=== PATIENT | female | born 1980 | race American Indian/Alaskan Native ===

== ENCOUNTER 2016-05-07 09:02 | Emergency (ER) | payer MEDICAID ==
--- NOTE | 2016-05-07 09:57 | Emergency Department Report ---
Chief Complaint: Headache Stated Complaint: LOWER PAIN IN HEAD Time Seen by Provider: 05/07/16 09:52 - HPI History of Present Illness: Pt. is a 35 y.o female who presents to ED c/o constant/intermittent, throbbing /sharp, non radiation 6/10 intensity type headache x today. Pt. states pain located to frontal and occipital Pt. admits history of stroke 3 years ago that left her in a wheelchair. She states she has not taken any medication for the headache today. Pt. denies fever, chills, nausea, vomiting, trauma, vision impairment, dizziness , chest pain, shortness of breath - ROS Review of Systems: As noted in HPI - Exam Vital Signs: Vital Signs 05/07/16 09:44 Temperature 98.5 F Pulse Rate 80 Respiratory 17 Rate Blood Pressure 120/80 O2 Sat by Pulse 98 Oximetry Physical Exam: GENERAL: Alert and oriented x3, no apparent distress, in wheel chair, atraumatic. No facial droop. HEAD: Head is normocephalic and a-traumatic. Tender to palpation frontal and solution EYES: Extra ocular muscles are intact. Pupils are equal, round, and reactive to light and accommodation. LUNGS: Symetrical with respiration, No wheezing, no rales or crackles, CTAB. HEART: S1, S2 present, regular rate and rhythm without murmur, no rubs, no gallops. ABDOMEN: No organomegaly was noted,Positive bowel sounds, soft, and non- distended. . Nontender to palpation on all Quadrants, NO CVA tenderness. EXTREMITIES/MUSCULOSKELETAL: No cyanosis, clubbing, rash, lesions or edema. Full ROM bilaterally. UE/LE Pulses 2+ bilaterally. LE and UE 5+ strength bilaterally NEUROLOGIC: No focal Deficit, Cranial nerves II through XII are grossly intact. No loss of sensation. Firm grasp SKIN: Warm and dry, No lesions, No ulceration or induration present. MSE screening note: Focused history and physical exam performed. Due to findings the following was ordered: ED Medical Decision Making - Medical Decision Making Labs ordered. Patient to be reassessed every 30-60 minutes. Patient was seen over on the main side by ED physician. ED Disposition for MSE Condition: Stable
[2016-05-07 10:25] LABS: Basophils % (Auto) 0.5 % (0.0-1.8); Eosinophils % (Auto) 1.1 % (0.0-4.3); Hemoglobin 13.2 gm/dl (10.1-14.3); Mean Corpuscular HGB Conc 32 % (30-34); Mean Corpuscular Hemoglobin 27 pg (28-32); Mean Corpuscular Volume 85 fl (79-97); Platelet Count 164 K/mm3 (140-440); Red Blood Count 4.92 M/mm3 (3.65-5.03); Red Cell Distribution Width 14.3 % (13.2-15.2); White Blood Count 9.7 K/mm3 (4.5-11.0)
[2016-05-07 10:41] LABS: Alanine Aminotransferase 25 units/L (7-56); Albumin 3.7 g/dL (3.9-5); Albumin/Globulin Ratio 0.9 %; Alkaline Phosphatase 82 units/L (35-129); Anion Gap 16 mmol/L; Bilirubin,Total 0.3 mg/dL (0.1-1.2); Blood Urea Nitrogen 18 mg/dL (7-17); Calcium 8.8 mg/dL (8.4-10.2); Carbon Dioxide 28 mmol/L (22-30); Chloride 103.8 mmol/L (98-107); Glucose 151 mg/dL (65-100); Sodium 144 mmol/L (137-145); Total Protein 7.6 g/dL (6.3-8.2)
--- NOTE | 2016-05-07 11:12 | Cat Scan Report ---
CT HEAD WITHOUT CONTRAST: HISTORY: Headache. Bilateral ventricular catheters are unchanged in position. Ventricular size is unchanged and within normal limits. No hydrocephalus. Calcifications throughout the basal ganglia, cerebellar hemispheres and scattered calcifications in the subcortical white matter are unchanged since 07/31/15. There is no evidence for hemorrhage, mass or extra axial fluid collection. No large chronic infarct. Mild mucosal thickening is noted in the inferior maxillary sinuses. The remaining sinuses and mastoid air cells are clear. IMPRESSION: No acute intracranial process. Chronic findings as outlined above which are unchanged since 07/31/15.
[2016-05-07] MEDS ORDERED: FIORICET PO ONE (13:45)
--- NOTE | 2016-05-07 14:04 | Emergency Department Report ---
HPI - General Chief Complaint: Headache Time Seen by Provider: 05/07/16 13:39 - HPI HPI: Room 1 The patient is a 35-year-old female presenting with chief complaint of headache. Patient states her symptoms began this morning with a right occipital headache. Patient denies any preceding trauma or fever. Patient denies nausea or vomiting. 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 The patient currently gives her pain a score of 5/10 Location: Right occipital region Duration: Constant since this morning Quality: Headache Severity:5/10 Modifying factors: Unknown Context: [see above] Mode of transportation: [not driving] ED Past Medical Hx - Past Medical History Hx Hypertension: Yes (New Dx; 01/09/15) Hx CVA: Yes (CVA 2012) Hx Diabetes: Yes Hx Deep Vein Thrombosis: Yes (RIGHT LEG) Additional medical history: germinoma tumor, peripheral shunt, SCOLIOSIS, diabetes insipidus - Surgical History Past Surgical History?: No Additional Surgical History: brain surgery to remove germinoma. TONSILLECTOMY - Family History Family history: no significant - Social History Smoking Status: Never Smoker Substance Use Type: None - Medications Home Medications: Home Medications Medication Instructions Recorded Confirmed Last Taken Type Aspirin [Aspirin TAB] 325 mg PO DAILY 09/20/13 02/20/15 01/08/15 History Desmopressin 0.01% [Ddavp] 2 spray INNOSTRIL DAILY 09/20/13 02/20/15 01/08/15 History Gabapentin 100 mg PO TID 09/20/13 02/20/15 01/08/15 History Glimepiride 1 mg PO DAILY 09/20/13 02/20/15 01/08/15 History Hydrocortisone 20 mg PO DAILY 09/20/13 02/20/15 01/08/15 History Levothyroxine [Synthroid] 112 mcg PO DAILY 09/20/13 02/20/15 01/08/15 History Simvastatin [Zocor TAB] 40 mg PO QHS 09/20/13 02/20/15 01/07/15 History Warfarin [Coumadin] 10 mg PO DAILY@1700 14 Days 12/04/14 02/20/15 01/08/15 Rx Amlodipine Besylate [Norvasc] 2.5 mg PO DAILY 30 Days 01/09/15 02/20/15 Unknown Rx HYDROcodone/APAP 10-325 [[place] 1 each PO Q8HR PRN #20 tablet 01/09/15 02/20/15 Unknown Rx 10/325] PARoxetine [Paxil] 10 mg PO TID #90 tablet 04/16/15 Unknown Rx traMADol [Ultram] 50 mg PO Q4HR PRN #20 tablet 04/16/15 Unknown Rx HYDROcodone/APAP 5-325 [[place] 1 each PO Q6HR PRN #15 tablet 07/31/15 Unknown Rx 5-325 mg TAB] Ibuprofen [Motrin 800 MG tab] 800 mg PO Q8HR PRN #30 tablet 11/14/15 Unknown Rx Sulfamethoxazole/Trimethoprim 1 each PO BID #14 tablet 12/27/15 Unknown Rx [Bactrim DS TAB] Butalb/Acetamin/Caff 50-325-40 1 tab PO Q8HR PRN #20 tablet 05/07/16 Unknown Rx [Fioricet] ED Review of Systems ROS: Stated complaint: LOWER PAIN IN HEAD Other details as noted in HPI Comment: All other systems reviewed and negative Constitutional: denies: chills, fever Eyes: denies: eye pain, eye discharge, vision change ENT: denies: ear pain, throat pain Respiratory: denies: cough, shortness of breath, wheezing Cardiovascular: denies: chest pain, palpitations Endocrine: no symptoms reported Gastrointestinal: denies: abdominal pain, nausea, diarrhea Genitourinary: denies: urgency, dysuria, discharge Musculoskeletal: denies: back pain, joint swelling, arthralgia Skin: denies: rash, lesions Neurological: headache Psychiatric: denies: anxiety, depression Hematological/Lymphatic: denies: easy bleeding, easy bruising Physical Exam - Physical Exam Vital Signs: Vital Signs 05/07/16 09:44 Temperature 98.5 F Pulse Rate 80 Respiratory 17 Rate Blood Pressure 120/80 O2 Sat by Pulse 98 Oximetry Physical Exam: GENERAL: The patient is well-developed well-nourished female lying on stretcher not appearing to be in acute distress. [] HEENT: Normocephalic. Atraumatic. Extraocular motions are intact. Patient has moist mucous membranes. NECK: Supple. No meningitic signs are noted. Trachea midline CHEST/LUNGS: Clear to auscultation. There is no respiratory distress noted. HEART/CARDIOVASCULAR: Regular. There is no tachycardia. There is no gallop rub or murmur. ABDOMEN: Abdomen is soft, nontender. Patient has normal bowel sounds. There is no abdominal distention. SKIN: There is no rash. There is no edema. There is no diaphoresis. NEURO: The patient is awake, alert, and oriented. The patient is cooperative. Slight right facial weakness otherwise cranial nerves II through XII grossly intact. Right upper extremity and lower extremity weakness from previous CVA. The patient has normal speech MUSCULOSKELETAL: There is no evidence of acute injury. ED Course Vital Signs 05/07/16 09:44 Temperature 98.5 F Pulse Rate 80 Respiratory 17 Rate Blood Pressure 120/80 O2 Sat by Pulse 98 Oximetry ED Medical Decision Making - Lab Data Result diagrams: 05/07/16 10:06 05/07/16 10:06 Laboratory Tests 05/07/16 05/07/16 05/07/16 10:06 10:06 10:06 WBC 9.7 RBC 4.92 Hgb 13.2 Hct 42.0 MCV 85 MCH 27 L MCHC 32 RDW 14.3 Plt Count 164 Lymph % (Auto) 24.4 [place] % (Auto) 6.9 Eos % (Auto) 1.1 Baso % (Auto) 0.5 Lymph # 2.4 [place] # 0.7 Eos # 0.1 Baso # 0.0 Seg Neutrophils % 67.1 Seg Neutrophils # 6.5 PT INR APTT Sodium 144 Potassium 4.0 Chloride 103.8 Carbon Dioxide 28 Anion Gap 16 BUN 18 H Creatinine 1.2 Estimated GFR > 60 BUN/Creatinine Ratio 15.00 Glucose 151 H Calcium 8.8 Total Bilirubin 0.3 AST 14 ALT 25 Alkaline Phosphatase 82 Total Protein 7.6 Albumin 3.7 L Albumin/Globulin Ratio 0.9 HCG, Qual Negative Urine Color Urine Turbidity Urine pH Ur Specific [place] Urine Protein Urine Glucose (UA) Urine Ketones Urine Blood Urine Nitrite Urine Bilirubin Urine Urobilinogen Ur Leukocyte Esterase Urine WBC (Auto) Urine RBC (Auto) U Epithel Cells (Auto) 05/07/16 05/07/16 13:52 14:44 WBC RBC Hgb Hct MCV MCH MCHC RDW Plt Count Lymph % (Auto) [place] % (Auto) Eos % (Auto) Baso % (Auto) Lymph # [place] # Eos # Baso # Seg Neutrophils % Seg Neutrophils # PT 22.5 H INR 1.98 H APTT 36.5 Sodium Potassium Chloride Carbon Dioxide Anion Gap BUN Creatinine Estimated GFR BUN/Creatinine Ratio Glucose Calcium Total Bilirubin AST ALT Alkaline Phosphatase Total Protein Albumin Albumin/Globulin Ratio HCG, Qual Urine Color Straw Urine Turbidity Clear Urine pH 6.0 Ur Specific [place] 1.003 Urine Protein <15 mg/dl Urine Glucose (UA) Neg Urine Ketones Neg Urine Blood Neg Urine Nitrite Neg Urine Bilirubin Neg Urine Urobilinogen < 2.0 Ur Leukocyte Esterase Neg Urine WBC (Auto) < 1.0 Urine RBC (Auto) 1.0 U Epithel Cells (Auto) 1.0 - Radiology Data Radiology results: report reviewed (CT head), image reviewed (CT head) CT head (read by radiologist)-no acute intracranial process. Bilateral ventricular catheters are unchanged in position. Ventricular size is unchanged and within normal limits. No hydrocephalus. Chronic findings as outlined above which are unchanged since 07/31/2015. - Differential Diagnosis headache, migraine, [employer] shunt malfunction Critical care attestation.: If time is entered above; I have spent that time in minutes in the direct care of this critically ill patient, excluding procedure time. ED Disposition Clinical Impression: Headache Disposition: DISCHARGED TO HOME OR SELFCARE Is pt being admited?: No Does the pt Need Aspirin: No Condition: Stable Instructions: Acute Headache (ED) Additional Instructions: Return to the emergency department immediately should you develop worsening symptoms, fever, inability to tolerate food or liquid or any other concerns. Prescriptions: Butalb/Acetamin/Caff 50-325-40 [Fioricet] 1 tab PO Q8HR PRN #20 tablet PRN Reason: Headache Referrals: PRIMARY CARE, [Primary Care Provider] - 3-5 Days your neurologistZac [Other] - 3-5 Days Time of Disposition: 15:03
[2016-05-07 14:17] VITALS: BP 134/78
[2016-05-07 14:18] LABS: INR 1.98 (0.87-1.13)
[2016-05-07 14:19] LABS: Partial Thromboplastin Time 36.5 Sec. (24.2-36.6)
[2016-05-07 14:58] LABS: Bilirubin,Urine NEG (Negative); Blood,Urine NEG (Negative); Ketones,Urine NEG (Negative); Leukocyte Esterase,Urine NEG (Negative); Nitrite,Urine NEG (Negative); Protein,Urine <15 mg/dL mg/dL (Negative); Urobilinogen,Urine < 2.0 mg/dL (<2.0); WBC,Urine < 1.0 /HPF (0.0-6.0)
== END 2016-05-07 15:00 | disposition home or self-care (01) ==
LOC: ED 09:02
DX: R51 Headache (principal); I10 Essential (primary) hypertension; E11.9 Type 2 diabetes mellitus without complications; Z86.73 Personal history of transient ischemic attack (TIA), and cerebral infarction without residual deficits; Z86.718 Personal history of other venous thrombosis and embolism; Z90.89 Acquired absence of other organs; Z79.82 Long term (current) use of aspirin
CPT/HCPCS: 36415; 70450; 80053; 81001; 84703; 85025; 85610; 85730

== ENCOUNTER 2017-11-04 20:39 | Emergency (ER) | payer MEDICAID ==
[2017-11-05 02:26] VITALS: BP 140/89
== END 2017-11-05 07:00 | disposition left against medical advice (07) ==
LOC: ED 20:39
DX: R51 Headache (principal); Z53.21 Procedure and treatment not carried out due to patient leaving prior to being seen by health care provider

== ENCOUNTER 2018-07-01 19:30 | Inpatient (IN) | payer MEDICARE ==
[2018-07-01] MEDS ORDERED: NACL 0.9% 1000 ML IV ONE (20:12)
[2018-07-01] MEDS ORDERED: TYLENOL PO PRN (20:12)
[2018-07-01] MEDS ORDERED: TORADOL IV ONE (20:15)
[2018-07-01] MEDS ORDERED: ZOFRAN IV ONE (20:15)
--- NOTE | 2018-07-01 20:34 | Emergency Department Report ---
<CHARAN PADRON - Last Filed: 07/02/18 01:22> ED General Adult HPI - General Chief complaint: Weakness Stated complaint: LEG PAIN/WEAKNESS Time Seen by Provider: 07/01/18 20:06 - Related Data Home Medications Medication Instructions Recorded Confirmed Last Taken Aspirin [Aspirin TAB] 325 mg PO DAILY 09/20/13 02/20/15 01/08/15 DESMOPRESSIN 0.01%(nf) [Ddavp(Nf)] 2 spray INNOSTRIL DAILY 09/20/13 02/20/15 01/08/15 Gabapentin 100 mg PO TID 09/20/13 02/20/15 01/08/15 Glimepiride 1 mg PO DAILY 09/20/13 02/20/15 01/08/15 Hydrocortisone 20 mg PO DAILY 09/20/13 02/20/15 01/08/15 Levothyroxine [Synthroid] 112 mcg PO DAILY 09/20/13 02/20/15 01/08/15 Simvastatin (Nf) [Zocor TAB] 40 mg PO QHS 09/20/13 02/20/15 01/07/15 Previous Rx's Medication Instructions Recorded Last Taken Type Warfarin [Coumadin] 10 mg PO DAILY@1700 14 Days tablet 12/04/14 01/08/15 Rx Amlodipine Besylate [Norvasc] 2.5 mg PO DAILY 30 Days tab 01/09/15 Unknown Rx HYDROcodone/APAP 10-325 [[place] 1 each PO Q8HR PRN #20 tablet 01/09/15 Unknown Rx 10/325] PARoxetine [Paxil] 10 mg PO TID #90 tablet 04/16/15 Unknown Rx traMADol [Ultram] 50 mg PO Q4HR PRN #20 tablet 04/16/15 Unknown Rx HYDROcodone/APAP 5-325 [[place] 1 each PO Q6HR PRN #15 tablet 07/31/15 Unknown Rx 5-325 mg TAB] Ibuprofen [Motrin 800 MG tab] 800 mg PO Q8HR PRN #30 tablet 11/14/15 Unknown Rx Sulfamethoxazole/Trimethoprim 1 each PO BID #14 tablet 12/27/15 Unknown Rx [Bactrim DS TAB] Butalb/Acetamin/Caff 50-325-40 1 tab PO Q8HR PRN #20 tablet 05/07/16 Unknown Rx [Fioricet] Allergies Allergy/AdvReac Type Severity Reaction Status Date / Time No Known Allergies Allergy Verified 05/07/16 09:44 ED Past Medical Hx - Medications Home Medications: Home Medications Medication Instructions Recorded Confirmed Last Taken Type Aspirin [Aspirin TAB] 325 mg PO DAILY 09/20/13 02/20/15 01/08/15 History DESMOPRESSIN 0.01%(nf) [Ddavp(Nf)] 2 spray INNOSTRIL DAILY 09/20/13 02/20/15 01/08/15 History Gabapentin 100 mg PO TID 09/20/13 02/20/15 01/08/15 History Glimepiride 1 mg PO DAILY 09/20/13 02/20/15 01/08/15 History Hydrocortisone 20 mg PO DAILY 09/20/13 02/20/15 01/08/15 History Levothyroxine [Synthroid] 112 mcg PO DAILY 09/20/13 02/20/15 01/08/15 History Simvastatin (Nf) [Zocor TAB] 40 mg PO QHS 09/20/13 02/20/15 01/07/15 History Warfarin [Coumadin] 10 mg PO DAILY@1700 14 Days tablet 12/04/14 02/20/15 01/08/15 Rx Amlodipine Besylate [Norvasc] 2.5 mg PO DAILY 30 Days tab 01/09/15 02/20/15 Unknown Rx HYDROcodone/APAP 10-325 [[place] 1 each PO Q8HR PRN #20 tablet 01/09/15 02/20/15 Unknown Rx 10/325] PARoxetine [Paxil] 10 mg PO TID #90 tablet 04/16/15 Unknown Rx traMADol [Ultram] 50 mg PO Q4HR PRN #20 tablet 04/16/15 Unknown Rx HYDROcodone/APAP 5-325 [[place] 1 each PO Q6HR PRN #15 tablet 07/31/15 Unknown Rx 5-325 mg TAB] Ibuprofen [Motrin 800 MG tab] 800 mg PO Q8HR PRN #30 tablet 11/14/15 Unknown Rx Sulfamethoxazole/Trimethoprim 1 each PO BID #14 tablet 12/27/15 Unknown Rx [Bactrim DS TAB] Butalb/Acetamin/Caff 50-325-40 1 tab PO Q8HR PRN #20 tablet 05/07/16 Unknown Rx [Fioricet] ED Medical Decision Making - Lab Data Result diagrams: 07/01/18 20:16 07/01/18 20:16 ED Disposition Clinical Impression: Hypoglycemia Hypotension Qualifiers: Hypotension type: hypotension due to hypovolemia Qualified Code(s): I95.89 - Other hypotension; E86.1 - Hypovolemia Pneumonia Qualifiers: Pneumonia type: due to unspecified organism Laterality: right Lung location: lower lobe of lung Qualified Code(s): J18.1 - Lobar pneumonia, unspecified organism UTI (urinary tract infection) Qualifiers: Urinary tract infection type: acute cystitis Hematuria presence: without hematuria Qualified Code(s): N30.00 - Acute cystitis without hematuria Sepsis Qualifiers: Sepsis type: sepsis due to unspecified organism Qualified Code(s): A41.9 - Sepsis, unspecified organism Disposition: OP ADMIT IP TO THIS HOSP Condition: Stable Instructions: Bacterial Pneumonia (ED) <HUGO PARMAR - Last Filed: 07/02/18 01:44> ED General Adult HPI - General Source: EMS Mode of arrival: Stretcher Limitations: Physical Limitation - History of Present Illness Initial comments: Patient is a 37-year-old Female with past medical history of hypertension diabetes and history of a right sided CVA with residual deficit that occurred approximately 5 years ago who is presenting with generalized weakness. Patient states that over the past day she's felt very weak with body aches. Patient's falling 3 times with no obvious injury. Patient states she feels dizzy when she tries to stand. Patient states she has achiness and bilateral legs and lower back. She states she has sore throat that is worse with swallowing has some tenderness severity. Patient's has associated cough and congestion with nausea vomiting but denies diarrhea. pt had 3 falls today but states that her balance is not great after the strokes. denies injury Associated Symptoms: cough, diaphoresis, fever/chills, headaches, loss of appetite, malaise, nausea/vomiting, shortness of breath, weakness. 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 TONSILLECTOMY - Social History Smoking Status: Never Smoker ED Physical Exam - General Limitations: Physical Limitation General appearance: alert, in no apparent distress - Head Head exam: Present: atraumatic, normocephalic - Eye Eye exam: Present: normal appearance, PERRL, EOMI - ENT ENT exam: Present: mucous membranes moist, other (pharyngeal erythema) - Neck Neck exam: Present: normal inspection. Absent: tenderness, meningismus - Respiratory Respiratory exam: Present: rhonchi. Absent: normal lung sounds bilaterally, respiratory distress, wheezes, rales, chest wall tenderness - Cardiovascular Cardiovascular Exam: Present: normal rhythm, tachycardia. Absent: systolic murmur, diastolic murmur, rubs, gallop - GI/Abdominal GI/Abdominal exam: Present: soft, normal bowel sounds. Absent: distended, tenderness, guarding, rebound, rigid - Extremities Exam Extremities exam: Present: normal inspection - Back Exam Back exam: Present: normal inspection - Neurological Exam Neurological exam: Present: alert, oriented X3, other (patient with some co ntractures to the right upper extremity secondary to a previous CVA) - Psychiatric Psychiatric exam: Present: normal affect, normal mood - Skin Skin exam: Present: warm, dry, intact, normal color. Absent: rash ED Course Vital Signs 07/01/18 07/01/18 07/01/18 19:56 20:13 20:52 Temperature 98.4 F Pulse Rate 127 H 134 H Respiratory 20 15 Rate Blood Pressure 133/81 O2 Sat by Pulse 99 93 Oximetry 07/01/18 07/01/18 07/01/18 21:08 21:13 21:16 Temperature 102.5 F H Pulse Rate 122 H 115 H Respiratory 13 Rate Blood Pressure 133/76 110/65 O2 Sat by Pulse 92 99 Oximetry 07/01/18 07/01/18 07/01/18 21:30 21:46 22:00 Temperature Pulse Rate 115 H 114 H 116 H Respiratory 18 16 Rate Blood Pressure 121/66 129/69 113/64 O2 Sat by Pulse 100 100 Oximetry 07/01/18 07/01/18 07/01/18 22:16 22:30 22:45 Temperature 99.8 F H Pulse Rate 114 H 109 H Respiratory 19 14 Rate Blood Pressure 121/66 123/60 O2 Sat by Pulse 98 97 Oximetry 07/01/18 07/01/18 07/01/18 22:46 23:00 23:16 Temperature Pulse Rate 106 H 112 H 96 H Respiratory 16 13 25 H Rate Blood Pressure 115/55 106/59 106/59 O2 Sat by Pulse 97 92 96 Oximetry 07/01/18 07/01/18 07/02/18 23:30 23:46 00:00 Temperature Pulse Rate 96 H 98 H 100 H Respiratory 19 17 Rate Blood Pressure 90/47 89/48 O2 Sat by Pulse 97 98 94 Oximetry 07/02/18 07/02/18 00:16 00:30 Temperature Pulse Rate 103 H 104 H Respiratory 16 Rate Blood Pressure 91/47 O2 Sat by Pulse Oximetry - Reevaluation(s) Reevaluation #1: 07/02/18 01:39 Patient received a bolus under the sepsis protocol. She continued to have hypotension despite the fluids. Patient was taken from room 9 to room 2 to have a central line placed. Also patient seems to be requiring oxygen as well. Patient is not on home O2. Patient is mouth breathing secondary to congestion. - Central Line Placement Left IJ Consent Obtained: verbal consent Time Out Performed: Yes Patient Placed on Monitor/Pulse Ox: Yes Prep: mask, gown, gloves Central Line Prep: Chlorhexidine scrub Local Anesthesia Used: Lidocaine 1% Amount of Anesthesia Used (mls): 8 Ultrasound Used for Placement: Yes Central Line Lumen Inserted: triple Central Line Position: good blood return, all ports aspirated, flus, sutured in place with 2-0 Dressing Applied: Tegaderm Patient Tolerated Procedure: well ED Medical Decision Making - Lab Data Result diagrams: 07/01/18 20:16 07/01/18 20:16 Lab Results 07/01/18 07/01/18 07/01/18 Range/Units 20:16 20:16 20:26 WBC 14.8 H (4.5-11.0) K/mm3 RBC 5.80 H (3.65-5.03) M/mm3 Hgb 15.2 H (10.1-14.3) gm/dl Hct 47.2 H (30.3-42.9) % MCV 82 (79-97) fl MCH 26 L (28-32) pg MCHC 32 (30-34) % RDW 15.3 H (13.2-15.2) % Plt Count 169 (140-440) K/mm3 Lymph % (Auto) 13.5 (13.4-35.0) % [place] % (Auto) 5.6 (0.0-7.3) % Eos % (Auto) 0.0 (0.0-4.3) % Baso % (Auto) 0.6 (0.0-1.8) % Lymph # 2.0 (1.2-5.4) K/mm3 [place] # 0.8 (0.0-0.8) K/mm3 Eos # 0.0 (0.0-0.4) K/mm3 Baso # 0.1 (0.0-0.1) K/mm3 Seg Neutrophils % 80.3 H (40.0-70.0) % Seg Neutrophils # 11.9 H (1.8-7.7) K/mm3 APTT 51.3 H (24.2-36.6) Sec. Sodium 142 (137-145) mmol/L Potassium 4.2 (3.6-5.0) mmol/L Chloride 102.4 (98-107) mmol/L Carbon Dioxide 24 (22-30) mmol/L Anion Gap 20 mmol/L BUN 22 H (7-17) mg/dL Creatinine 1.6 H (0.7-1.2) mg/dL Estimated GFR 44 ml/min BUN/Creatinine Ratio 14 % Glucose 63 L (65-100) mg/dL POC Glucose (70-105) Lactic Acid (0.7-2.0) mmol/L Calcium 9.8 (8.4-10.2) mg/dL Total Bilirubin 0.40 (0.1-1.2) mg/dL AST 67 H (5-40) units/L ALT 53 (7-56) units/L Alkaline Phosphatase 124 (35-129) units/L Total Protein 9.1 H (6.3-8.2) g/dL Albumin 3.9 (3.9-5) g/dL Albumin/Globulin Ratio 0.8 % Urine Color (Yellow) Urine Turbidity (Clear) Urine pH (5.0-7.0) Ur Specific [place] (1.003-1.030) Urine Protein (Negative) mg/dL Urine Glucose (UA) (Negative) mg/dL Urine Ketones (Negative) mg/dL Urine Blood (Negative) Urine Nitrite (Negative) Urine Bilirubin (Negative) Urine Urobilinogen (<2.0) mg/dL Ur Leukocyte Esterase (Negative) Urine WBC (Auto) (0.0-6.0) /HPF Urine RBC (Auto) (0.0-6.0) /HPF U Epithel Cells (Auto) (0-13.0) /HPF Urine Mucus /HPF Influenza A (Rapid) (Negative) Influenza B (Rapid) (Negative) Group A Strep Rapid (Negative) 07/01/18 07/01/18 07/01/18 Range/Units 20:26 22:41 22:51 WBC (4.5-11.0) K/mm3 RBC (3.65-5.03) M/mm3 Hgb (10.1-14.3) gm/dl Hct (30.3-42.9) % MCV (79-97) fl MCH (28-32) pg MCHC (30-34) % RDW (13.2-15.2) % Plt Count (140-440) K/mm3 Lymph % (Auto) (13.4-35.0) % [place] % (Auto) (0.0-7.3) % Eos % (Auto) (0.0-4.3) % Baso % (Auto) (0.0-1.8) % Lymph # (1.2-5.4) K/mm3 [place] # (0.0-0.8) K/mm3 Eos # (0.0-0.4) K/mm3 Baso # (0.0-0.1) K/mm3 Seg Neutrophils % (40.0-70.0) % Seg Neutrophils # (1.8-7.7) K/mm3 APTT (24.2-36.6) Sec. Sodium (137-145) mmol/L Potassium (3.6-5.0) mmol/L Chloride (98-107) mmol/L Carbon Dioxide (22-30) mmol/L Anion Gap mmol/L BUN (7-17) mg/dL Creatinine (0.7-1.2) mg/dL Estimated GFR ml/min BUN/Creatinine Ratio % Glucose (65-100) mg/dL POC Glucose (70-105) Lactic Acid 1.80 0.60 L (0.7-2.0) mmol/L Calcium (8.4-10.2) mg/dL Total Bilirubin (0.1-1.2) mg/dL AST (5-40) units/L ALT (7-56) units/L Alkaline Phosphatase (35-129) units/L Total Protein (6.3-8.2) g/dL Albumin (3.9-5) g/dL Albumin/Globulin Ratio % Urine Color (Yellow) Urine Turbidity (Clear) Urine pH (5.0-7.0) Ur Specific [place] (1.003-1.030) Urine Protein (Negative) mg/dL Urine Glucose (UA) (Negative) mg/dL Urine Ketones (Negative) mg/dL Urine Blood (Negative) Urine Nitrite (Negative) Urine Bilirubin (Negative) Urine Urobilinogen (<2.0) mg/dL Ur Leukocyte Esterase (Negative) Urine WBC (Auto) (0.0-6.0) /HPF Urine RBC (Auto) (0.0-6.0) /HPF U Epithel Cells (Auto) (0-13.0) /HPF Urine Mucus /HPF Influenza A (Rapid) Negative (Negative) Influenza B (Rapid) Negative (Negative) Group A Strep Rapid Negative (Negative) 07/01/18 07/02/18 Range/Units 23:14 00:15 WBC (4.5-11.0) K/mm3 RBC (3.65-5.03) M/mm3 Hgb (10.1-14.3) gm/dl Hct (30.3-42.9) % MCV (79-97) fl MCH (28-32) pg MCHC (30-34) % RDW (13.2-15.2) % Plt Count (140-440) K/mm3 Lymph % (Auto) (13.4-35.0) % [place] % (Auto) (0.0-7.3) % Eos % (Auto) (0.0-4.3) % Baso % (Auto) (0.0-1.8) % Lymph # (1.2-5.4) K/mm3 [place] # (0.0-0.8) K/mm3 Eos # (0.0-0.4) K/mm3 Baso # (0.0-0.1) K/mm3 Seg Neutrophils % (40.0-70.0) % Seg Neutrophils # (1.8-7.7) K/mm3 APTT (24.2-36.6) Sec. Sodium (137-145) mmol/L Potassium (3.6-5.0) mmol/L Chloride (98-107) mmol/L Carbon Dioxide (22-30) mmol/L Anion Gap mmol/L BUN (7-17) mg/dL Creatinine (0.7-1.2) mg/dL Estimated GFR ml/min BUN/Creatinine Ratio % Glucose (65-100) mg/dL POC Glucose 57 L (70-105) Lactic Acid (0.7-2.0) mmol/L Calcium (8.4-10.2) mg/dL Total Bilirubin (0.1-1.2) mg/dL AST (5-40) units/L ALT (7-56) units/L Alkaline Phosphatase (35-129) units/L Total Protein (6.3-8.2) g/dL Albumin (3.9-5) g/dL Albumin/Globulin Ratio % Urine Color Yellow (Yellow) Urine Turbidity Slightly-cloudy (Clear) Urine pH 5.0 (5.0-7.0) Ur Specific [place] 1.006 (1.003-1.030) Urine Protein <15 mg/dl (Negative) mg/dL Urine Glucose (UA) Neg (Negative) mg/dL Urine Ketones Neg (Negative) mg/dL Urine Blood Neg (Negative) Urine Nitrite Neg (Negative) Urine Bilirubin Neg (Negative) Urine Urobilinogen < 2.0 (<2.0) mg/dL Ur Leukocyte Esterase Tr (Negative) Urine WBC (Auto) 10.0 H (0.0-6.0) /HPF Urine RBC (Auto) 3.0 (0.0-6.0) /HPF U Epithel Cells (Auto) 1.0 (0-13.0) /HPF Urine Mucus 1+ /HPF Influenza A (Rapid) (Negative) Influenza B (Rapid) (Negative) Group A Strep Rapid (Negative) - EKG Data -: EKG Interpreted by Wi EKG shows normal: axis, intervals, QRS complexes, ST-T waves Rate: tachycardia - EKG Data Interpretation: other (sinus tachycardia) - Radiology Data [facility] [address] [place] [address] XRay Report Signed Patient: JANEL CORTES MR#: [id number] : 1980 Acct:[id number] Age/Sex: 37 / F ADM Date: 07/01/18 Loc: ED Attending Dr: Ordering Physician: HUGO PARMAR MD Date of Service: 07/01/18 Procedure(s): XR chest 1V ap Accession Number(s): [id number] cc: HUGO PARMAR MD Fluoro Time In Minutes: PROCEDURE: XR CHEST 1V AP TECHNIQUE: Chest radiograph single view. HISTORY: cough with fever COMPARISONS: None . FINDINGS: Heart: Normal. Mediastinum/Vessels: Normal. Lungs/Pleural space: Normal. Bony thorax: No acute osseous abnormality. Life support devices: None. IMPRESSION: No acute cardiopulmonary abnormality. This document is electronically signed by Rehan Donato MD., July 01 2018 09:46:07 PM ET Transcribed By: CO Dictated By: REHAN DONATO MD Electronically Authenticated By: REHAN DONATO MD Signed Date/Time: 07/01/182146 Per my interpretation the patient lungs are hyperinflated. There is some irregularity to the heart border on the right which is likely atelectasis but could also be an early pneumonia. - Medical Decision Making Patient is a 37-year-old female who has a past history of stroke hypertension and diabetes who is presenting with congestion. Patient is mildly hypoxic w ithout oxygen. Is questionable whether the patient has a small pneumonia as her white blood cell count is elevated. Patient also has a very mild UTI as well and has had some urinary frequency. Patient to be admitted to the hospitalist service. After the central line was placed patient blood pressure was 104 systolic and pressors were held at this time. Patient was mildly hypoglycemic and he received D50. Patient was asymptomatic with the episode of hypoglycemia. Critical Care Time: Yes (30) Critical care attestation.: If time is entered above; I have spent that time in minutes in the direct care of this critically ill patient, excluding procedure time. ED Disposition Is pt being admited?: Yes Does the pt Need Aspirin: No Time of Disposition: 01:44
[2018-07-01] MEDS ORDERED: LEVAQUIN 750MG/150ML 750 MG/150 ML BAG IV SCH (21:00)
[2018-07-01 21:04] LABS: Basophils # (Auto) 0.1 K/mm3 (0.0-0.1); Basophils % (Auto) 0.6 % (0.0-1.8); Hematocrit 47.2 % (30.3-42.9); Hemoglobin 15.2 gm/dl (10.1-14.3); Lymphocytes % (Auto) 13.5 % (13.4-35.0); Mean Corpuscular HGB Conc 32 % (30-34); Mean Corpuscular Volume 82 fl (79-97); Monocytes # (Auto) 0.8 K/mm3 (0.0-0.8); Monocytes % (Auto) 5.6 % (0.0-7.3); Platelet Count 169 K/mm3 (140-440); Red Cell Distribution Width 15.3 % (13.2-15.2)
[2018-07-01 21:36] LABS: Albumin 3.9 g/dL (3.9-5); Calcium 9.8 mg/dL (8.4-10.2)
--- NOTE | 2018-07-01 21:47 | XRay Report ---
PROCEDURE: XR CHEST 1V AP TECHNIQUE: Chest radiograph single view. HISTORY: cough with fever COMPARISONS: None . FINDINGS: Heart: Normal. Mediastinum/Vessels: Normal. Lungs/Pleural space: Normal. Bony thorax: No acute osseous abnormality. Life support devices: None. IMPRESSION: No acute cardiopulmonary abnormality. This document is electronically signed by Carlos Enrique Gonzales MD., July 01 2018 09:46:07 PM ET
[2018-07-01 23:52] LABS: Bilirubin,Urine NEG (Negative); Blood,Urine NEG (Negative); Color,Urine Yellow (Yellow); Protein,Urine <15 mg/dL mg/dL (Negative); Urobilinogen,Urine < 2.0 mg/dL (<2.0)
[2018-07-02] LABS: Mucus,Urine 1+ /HPF
[2018-07-02] MEDS ORDERED: D50W (25GM) Syringe IV PRN (00:11)
[2018-07-02] MEDS ORDERED: NACL 0.9% 500 ML 500 ML IV ONE (00:57)
--- NOTE | 2018-07-02 02:38 | XRay Report ---
PROCEDURE: XR CHEST 1V AP TECHNIQUE: Chest radiograph single view. HISTORY: post central line placement COMPARISONS: 07/01/2018 . FINDINGS: Heart: Normal. Mediastinum/Vessels: Normal. Lungs/Pleural space: There is suboptimal inspiration.. There are no infiltrates, effusions or pneumo thoraces. Bony thorax: No acute osseous abnormality. Life support devices: There is a left internal jugular vein central venous catheter. The tip is in th e right subclavian vein and should be repositioned. There is a right-sided [employer] shunt catheter.. IMPRESSION: No acute cardiopulmonary abnormality. There is a left internal jugular vein central venous catheter. The tip is in the right subclavian vei n and should be repositioned. There is a right-sided [employer] shunt catheter. This document is electronically signed by CarlosE nrique Gonzales MD., July 02 2018 02:36:24 AM ET
[2018-07-02] MEDS ORDERED: TYLENOL PO PRN (02:39)
[2018-07-02] MEDS ORDERED: MORPHINE IV PRN (02:39)
[2018-07-02] MEDS ORDERED: ZOFRAN IV PRN (02:39)
[2018-07-02] MEDS ORDERED: SODIUM CHLORIDE FLUSH SYRINGE 10 ML IV PRN (02:39)
--- NOTE | 2018-07-02 03:33 | History and Physical Report ---
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 Patient states that the cough started yesterday and today she was having yellowish sputum production, pt reports sore throat and pain with swallowing, she also reports fever she decided to come to the ER for evaluation. Pt also reports 3 episodes of fall due to her right sided weakness and dizziness today. In the ER pt's have a temperature of 102.5, laboratory values showed an elevated WBC 14.8 and positive UA, her influenza A & B was negative. While in the ER, patient developed hypotension, a central line was inserted and she was giving several liters of fluid boluses with some improvement on the blood pressure. Patient reports cough with yellow sputum production, sore throat, dizziness, falls, denies chest pain, denies recent traveling, denies ill contacts, denies history of recent infection or pneumonia, she was started on antibiotics and admitted for further evaluation and treatments. Past History Past Medical History: diabetes, hypertension, hyperlipidemia, hypothyroidism, renal failure Past Surgical History: No surgical history Social history: no significant social history, lives with family Medications and Allergies Allergies Allergy/AdvReac Type Severity Reaction Status Date / Time No Known Allergies Allergy Verified 05/07/16 09:44 Home Medications Medication Instructions Recorded Confirmed Last Taken Type Aspirin [Aspirin TAB] 325 mg PO DAILY 09/20/13 02/20/15 01/08/15 History DESMOPRESSIN 0.01%(nf) [Ddavp(Nf)] 2 spray INNOSTRIL DAILY 09/20/13 02/20/15 01/08/15 History Gabapentin 100 mg PO TID 09/20/13 02/20/15 01/08/15 History Glimepiride 1 mg PO DAILY 09/20/13 02/20/15 01/08/15 History Hydrocortisone 20 mg PO DAILY 09/20/13 02/20/15 01/08/15 History Levothyroxine [Synthroid] 112 mcg PO DAILY 09/20/13 02/20/15 01/08/15 History Simvastatin (Nf) [Zocor TAB] 40 mg PO QHS 09/20/13 02/20/15 01/07/15 History Warfarin [Coumadin] 10 mg PO DAILY@1700 14 Days tablet 12/04/14 02/20/15 01/08/15 Rx Amlodipine Besylate [Norvasc] 2.5 mg PO DAILY 30 Days tab 01/09/15 02/20/15 Unknown Rx HYDROcodone/APAP 10-325 [[place] 1 each PO Q8HR PRN #20 tablet 01/09/15 02/20/15 Unknown Rx 10/325] PARoxetine [Paxil] 10 mg PO TID #90 tablet 04/16/15 Unknown Rx traMADol [Ultram] 50 mg PO Q4HR PRN #20 tablet 04/16/15 Unknown Rx HYDROcodone/APAP 5-325 [[place] 1 each PO Q6HR PRN #15 tablet 07/31/15 Unknown Rx 5-325 mg TAB] Ibuprofen [Motrin 800 MG tab] 800 mg PO Q8HR PRN #30 tablet 11/14/15 Unknown Rx Sulfamethoxazole/Trimethoprim 1 each PO BID #14 tablet 12/27/15 Unknown Rx [Bactrim DS TAB] Butalb/Acetamin/Caff 50-325-40 1 tab PO Q8HR PRN #20 tablet 05/07/16 Unknown Rx [Fioricet] Active Meds: Active Medications Acetaminophen (Tylenol) 650 mg PO Q4H PRN PRN Reason: Pain MILD(1-3)/Fever >100.5/GARCIA Albuterol/Ipratropium (Duoneb *Not For Prn Use*) 1 ampul IH Q6HRT [facility] Dextrose (D50w (25gm) Syringe) 50 ml IV PRN PRN PRN Reason: Hypoglycemia Sodium Chloride (Nacl 0.9% 1000 Ml) 1,000 mls @ 100 mls/hr IV DIRECT [facility] Levofloxacin/Dextrose (Levaquin 750mg/150ml) 750 mg in 150 mls @ 100 mls/hr IV Q48HR [facility]; Protocol Insulin Human Lispro (Humalog) 0 unit SUB-Q Q4HR [facility]; Protocol Morphine Sulfate (Morphine) 2 mg IV Q4H PRN PRN Reason: Pain, Moderate (4-6) Ondansetron HCl (Zofran) 4 mg IV Q8H PRN PRN Reason: Nausea And Vomiting Sodium Chloride (Sodium Chloride Flush Syringe 10 Ml) 10 ml IV BID [facility] Sodium Chloride (Sodium Chloride Flush Syringe 10 Ml) 10 ml IV PRN PRN PRN Reason: LINE FLUSH Exam - Constitutional Vitals: Temp Pulse Resp BP Pulse Ox 99.8 F H 94 H 21 103/55 98 07/01/18 22:45 07/02/18 03:00 07/02/18 03:00 07/02/18 03:00 07/02/18 03:00 General appearance: Present: no acute distress, mild distress - EENT Eyes: Present: EOM intact ENT: hearing intact - Neck Neck: Present: normal ROM - Respiratory Respiratory effort: accessory muscle use Respiratory: bilateral: rhonchi - Cardiovascular Rhythm: regular - Extremities Extremities: no ischemia Peripheral Pulses: within normal limits - Abdominal General gastrointestinal: Present: soft, non-tender Female genitourinary: Present: deferred - Rectal Rectal Exam: deferred - Integumentary Integumentary: Present: warm, dry - Musculoskeletal Musculoskeletal: right sided weakness, generalized weakness - Psychiatric Psychiatric: cooperative - Neurologic Neurologic: focal deficits, moves all extremities Results - Labs CBC & Chem 7: 07/01/18 20:16 07/01/18 20:16 Labs: Laboratory Last Values WBC 14.8 K/mm3 (4.5-11.0) H 07/01/18 20:16 RBC 5.80 M/mm3 (3.65-5.03) H 07/01/18 20:16 Hgb 15.2 gm/dl (10.1-14.3) H 07/01/18 20:16 Hct 47.2 % (30.3-42.9) H 07/01/18 20:16 MCV 82 fl (79-97) 07/01/18 20:16 MCH 26 pg (28-32) L 07/01/18 20:16 MCHC 32 % (30-34) 07/01/18 20:16 RDW 15.3 % (13.2-15.2) H 07/01/18 20:16 Plt Count 169 K/mm3 (140-440) 07/01/18 20:16 Lymph % (Auto) 13.5 % (13.4-35.0) 07/01/18 20:16 [place] % (Auto) 5.6 % (0.0-7.3) 07/01/18 20:16 Eos % (Auto) 0.0 % (0.0-4.3) 07/01/18 20:16 Baso % (Auto) 0.6 % (0.0-1.8) 07/01/18 20:16 Lymph # 2.0 K/mm3 (1.2-5.4) 07/01/18 20:16 [place] # 0.8 K/mm3 (0.0-0.8) 07/01/18 20:16 Eos # 0.0 K/mm3 (0.0-0.4) 07/01/18 20:16 Baso # 0.1 K/mm3 (0.0-0.1) 07/01/18 20:16 Seg Neutrophils % 80.3 % (40.0-70.0) H 07/01/18 20:16 Seg Neutrophils # 11.9 K/mm3 (1.8-7.7) H 07/01/18 20:16 APTT 51.3 Sec. (24.2-36.6) H 07/01/18 20:26 Sodium 142 mmol/L (137-145) 07/01/18 20:16 Potassium 4.2 mmol/L (3.6-5.0) 07/01/18 20:16 Chloride 102.4 mmol/L (98-107) 07/01/18 20:16 Carbon Dioxide 24 mmol/L (22-30) 07/01/18 20:16 Anion Gap 20 mmol/L 07/01/18 20:16 BUN 22 mg/dL (7-17) H 07/01/18 20:16 Creatinine 1.6 mg/dL (0.7-1.2) H 07/01/18 20:16 Estimated GFR 44 ml/min 07/01/18 20:16 BUN/Creatinine Ratio 14 % 07/01/18 20:16 Glucose 63 mg/dL (65-100) L 07/01/18 20:16 POC Glucose 83 (70-105) 07/02/18 00:49 Lactic Acid 0.60 mmol/L (0.7-2.0) L 07/01/18 22:41 Calcium 9.8 mg/dL (8.4-10.2) 07/01/18 20:16 Total Bilirubin 0.40 mg/dL (0.1-1.2) 07/01/18 20:16 AST 67 units/L (5-40) H 07/01/18 20:16 ALT 53 units/L (7-56) 07/01/18 20:16 Alkaline Phosphatase 124 units/L (35-129) 07/01/18 20:16 Total Protein 9.1 g/dL (6.3-8.2) H 07/01/18 20:16 Albumin 3.9 g/dL (3.9-5) 07/01/18 20:16 Albumin/Globulin Ratio 0.8 % 07/01/18 20:16 Urine Color Yellow (Yellow) 07/01/18 23:14 Urine Turbidity Slightly-cloudy (Clear) 07/01/18 23:14 Urine pH 5.0 (5.0-7.0) 07/01/18 23:14 Ur Specific [place] 1.006 (1.003-1.030) 07/01/18 23:14 Urine Protein <15 mg/dl mg/dL (Negative) 07/01/18 23:14 Urine Glucose (UA) Neg mg/dL (Negative) 07/01/18 23:14 Urine Ketones Neg mg/dL (Negative) 07/01/18 23:14 Urine Blood Neg (Negative) 07/01/18 23:14 Urine Nitrite Neg (Negative) 07/01/18 23:14 Urine Bilirubin Neg (Negative) 07/01/18 23:14 Urine Urobilinogen < 2.0 mg/dL (<2.0) 07/01/18 23:14 Ur Leukocyte Esterase Tr (Negative) 07/01/18 23:14 Urine WBC (Auto) 10.0 /HPF (0.0-6.0) H 07/01/18 23:14 Urine RBC (Auto) 3.0 /HPF (0.0-6.0) 07/01/18 23:14 U Epithel Cells (Auto) 1.0 /HPF (0-13.0) 07/01/18 23:14 Urine Mucus 1+ /HPF 07/01/18 23:14 Influenza A (Rapid) Negative (Negative) 07/01/18 22:51 Influenza B (Rapid) Negative (Negative) 07/01/18 22:51 Group A Strep Rapid Negative (Negative) 07/01/18 22:51 Assessment and Plan Assessment and plan: 1. Acute febrile illness 2. Acute pneumonia 3. UTI 4. Sepsis syndrome 5. Hypotension 6. Leukocytosis 7. History of CVA with right-sided weakness 8. History of brain tumor (germinosa) 9. DM type II 10. Hypothyroidism 11. History of DVT 12. History of migraine headache 13. History of hypertension 14. DILIP (suspected due to dehydration 15. Depression Endocrine: Patient is admitted for acute fever and pneumonia Was started on Levaquin DVT Monitor vital signs/BP IV fluids for hydration Nebulizer treatments PRN for chest congestion Monitor Accu-Chek before meals and at bedtime Resume home meds Supportive care Plan discussed with patient's, voiced understanding Patient's condition and plan of care D/W with Dr. Crane Advance Directives: Yes VTE prophylaxis?: Mechanical Plan of care discussed with patient/family: Yes <CHARAN CRANE E - Last Filed: 07/02/18 06:55> History of Present Illness Date of admission: 07/02/18 02:39 Medications and Allergies Active Meds: Active Medications Acetaminophen (Tylenol) 650 mg PO Q4H PRN PRN Reason: Pain MILD(1-3)/Fever >100.5/GARCIA Albuterol/Ipratropium (Duoneb *Not For Prn Use*) 1 ampul IH Q6HRT [facility] Dextrose (D50w (25gm) Syringe) 50 ml IV PRN PRN PRN Reason: Hypoglycemia Sodium Chloride (Nacl 0.9% 1000 Ml) 1,000 mls @ 100 mls/hr IV DIRECT [facility] Last Admin: 07/02/18 05:31 Dose: 100 mls/hr Documented by: Levofloxacin/Dextrose (Levaquin 750mg/150ml) 750 mg in 150 mls @ 100 mls/hr IV Q48HR [facility]; Protocol Insulin Human Lispro (Humalog) 0 unit SUB-Q Q4HR [facility]; Protocol Last Admin: 07/02/18 05:31 Dose: Not Given Documented by: Methylprednisolone Sodium Succinate (Solu-Medrol) 60 mg IV Q8HR [facility] Last Admin: 07/02/18 05:31 Dose: 60 mg Documented by: Morphine Sulfate (Morphine) 2 mg IV Q4H PRN PRN Reason: Pain, Moderate (4-6) Ondansetron HCl (Zofran) 4 mg IV Q8H PRN PRN Reason: Nausea And Vomiting Sodium Chloride (Sodium Chloride Flush Syringe 10 Ml) 10 ml IV BID [facility] Sodium Chloride (Sodium Chloride Flush Syringe 10 Ml) 10 ml IV PRN PRN PRN Reason: LINE FLUSH Exam - Constitutional Vitals: Temp Pulse Resp BP Pulse Ox 99.8 F H 100 H 23 93/62 99 07/01/18 22:45 07/02/18 04:03 07/02/18 03:15 07/02/18 04:03 07/02/18 03:15 Results - Labs CBC & Chem 7: 07/01/18 20:16 07/01/18 20:16 Labs: Laboratory Last Values WBC 14.8 K/mm3 (4.5-11.0) H 07/01/18 20:16 RBC 5.80 M/mm3 (3.65-5.03) H 07/01/18 20:16 Hgb 15.2 gm/dl (10.1-14.3) H 07/01/18 20:16 Hct 47.2 % (30.3-42.9) H 07/01/18 20:16 MCV 82 fl (79-97) 07/01/18 20:16 MCH 26 pg (28-32) L 07/01/18 20:16 MCHC 32 % (30-34) 07/01/18 20:16 RDW 15.3 % (13.2-15.2) H 07/01/18 20:16 Plt Count 169 K/mm3 (140-440) 07/01/18 20:16 Lymph % (Auto) 13.5 % (13.4-35.0) 07/01/18 20:16 [place] % (Auto) 5.6 % (0.0-7.3) 07/01/18 20:16 Eos % (Auto) 0.0 % (0.0-4.3) 07/01/18 20:16 Baso % (Auto) 0.6 % (0.0-1.8) 07/01/18 20:16 Lymph # 2.0 K/mm3 (1.2-5.4) 07/01/18 20:16 [place] # 0.8 K/mm3 (0.0-0.8) 07/01/18 20:16 Eos # 0.0 K/mm3 (0.0-0.4) 07/01/18 20:16 Baso # 0.1 K/mm3 (0.0-0.1) 07/01/18 20:16 Seg Neutrophils % 80.3 % (40.0-70.0) H 07/01/18 20:16 Seg Neutrophils # 11.9 K/mm3 (1.8-7.7) H 07/01/18 20:16 APTT 51.3 Sec. (24.2-36.6) H 07/01/18 20:26 Sodium 142 mmol/L (137-145) 07/01/18 20:16 Potassium 4.2 mmol/L (3.6-5.0) 07/01/18 20:16 Chloride 102.4 mmol/L (98-107) 07/01/18 20:16 Carbon Dioxide 24 mmol/L (22-30) 07/01/18 20:16 Anion Gap 20 mmol/L 07/01/18 20:16 BUN 22 mg/dL (7-17) H 07/01/18 20:16 Creatinine 1.6 mg/dL (0.7-1.2) H 07/01/18 20:16 Estimated GFR 44 ml/min 07/01/18 20:16 BUN/Creatinine Ratio 14 % 07/01/18 20:16 Glucose 63 mg/dL (65-100) L 07/01/18 20:16 POC Glucose 65 (70-105) L 07/02/18 05:31 Lactic Acid 0.60 mmol/L (0.7-2.0) L 07/01/18 22:41 Calcium 9.8 mg/dL (8.4-10.2) 07/01/18 20:16 Total Bilirubin 0.40 mg/dL (0.1-1.2) 07/01/18 20:16 AST 67 units/L (5-40) H 07/01/18 20:16 ALT 53 units/L (7-56) 07/01/18 20:16 Alkaline Phosphatase 124 units/L (35-129) 07/01/18 20:16 Total Protein 9.1 g/dL (6.3-8.2) H 07/01/18 20:16 Albumin 3.9 g/dL (3.9-5) 07/01/18 20:16 Albumin/Globulin Ratio 0.8 % 07/01/18 20:16 Urine Color Yellow (Yellow) 07/01/18 23:14 Urine Turbidity Slightly-cloudy (Clear) 07/01/18 23:14 Urine pH 5.0 (5.0-7.0) 07/01/18 23:14 Ur Specific [place] 1.006 (1.003-1.030) 07/01/18 23:14 Urine Protein <15 mg/dl mg/dL (Negative) 07/01/18 23:14 Urine Glucose (UA) Neg mg/dL (Negative) 07/01/18 23:14 Urine Ketones Neg mg/dL (Negative) 07/01/18 23:14 Urine Blood Neg (Negative) 07/01/18 23:14 Urine Nitrite Neg (Negative) 07/01/18 23:14 Urine Bilirubin Neg (Negative) 07/01/18 23:14 Urine Urobilinogen < 2.0 mg/dL (<2.0) 07/01/18 23:14 Ur Leukocyte Esterase Tr (Negative) 07/01/18 23:14 Urine WBC (Auto) 10.0 /HPF (0.0-6.0) H 07/01/18 23:14 Urine RBC (Auto) 3.0 /HPF (0.0-6.0) 07/01/18 23:14 U Epithel Cells (Auto) 1.0 /HPF (0-13.0) 07/01/18 23:14 Urine Mucus 1+ /HPF 07/01/18 23:14 Influenza A (Rapid) Negative (Negative) 07/01/18 22:51 Influenza B (Rapid) Negative (Negative) 07/01/18 22:51 Group A Strep Rapid Negative (Negative) 07/01/18 22:51 Assessment and Plan Assessment and plan: Patient seen and ezamined by Hand Striper. 37 year old woman with history hypertension, diabetes, CVA, history of brain tumor comes emergency room because she states she did not feel good cough productive of yellow phlegm, fever, chills. Status post fall today and no trauma to head. Physical exam is significant for wheezing, rhonchi or check CT chest and left posterior pneumonia. CT reviewed, no pneumonia, start steroids, IV Levaquin, nebulizer treatments for acute bronchitis, UTI . Agree with fluid for renal insufficiency
--- NOTE | 2018-07-02 05:05 | Cat Scan Report ---
PROCEDURE: CT CHEST WO CON TECHNIQUE: Computerized axial tomography of the chest was performed without contrast material. This study is performed without intravenous contrast and the sensitivity for pathology, including neoplasm s, adenopathy, abscess, pulmonary embolism and aortic dissection, is reduced. CT DOSE LENGTH PRODUCT: mGycm HISTORY: sob, cough COMPARISONS: None . FINDINGS: Heart and pericardium: Normal. Thoracic aorta: Normal. Pulmonary vasculature: Normal. Lymph nodes: No enlarged thoracic lymph nodes. Lungs: Lungs are expanded. There are no infiltrates, effusions or pneumothoraces.. Musculoskeletal structures: No significant abnormality. Upper abdominal structures: No significant abnormality. IMPRESSION: There are no infiltrates, effusions or pneumothoraces.. This document is electronically signed by Carlos Enrique Gonzales MD., July 02 2018 05:02:50 AM ET
[2018-07-02] MEDS: NACL 0.9% 1000 ML 1,000 ML IV SCH ×2 (05:31→17:40)
[2018-07-02] MEDS: SOLU-Medrol IV SCH ×3 (05:31→22:26)
[2018-07-02] MEDS: HumaLOG SUB-Q SCH ×5 (05:31→22:27)
[2018-07-02] MEDS: DUONEB *Not for PRN Use IH SCH ×3 (08:25→20:43)
[2018-07-02] MEDS ORDERED: LEVAQUIN 750MG/150ML 750 MG/150 ML BAG IV SCH (10:00)
[2018-07-02] MEDS: SODIUM CHLORIDE FLUSH SYRINGE 10 ML IV SCH ×2 (11:14→22:27)
[2018-07-02] MEDS ORDERED: IBUPROFEN PO PRN (11:54)
[2018-07-02] MEDS ORDERED: FIORICET PO PRN (11:54)
--- NOTE | 2018-07-02 12:07 | Progress Note ---
Assessment and Plan Assessment and plan: 37-year-old woman previous history of right lower extremity DVT in 2015, hypertension, neuropathy, diabetes and hypothyroidism, adrenal insufficiency, major depression, hyperlipidemia, chronic pain syndrome Diagnoses SIRS, fever and tachycardia Productive Cough Hypertension, history of DVT ?hypopituitary syndrome type 2 DM chronic RLE edema from previous DVT in 2015, off coumadin x 6 months Plan Will obtain CT angiogram given patient's history of DVT to rule out PE, fup dopplers, start lovenox and warfarin for now -cxr, CT chest and Rapid flu are neg, no source of infection presently identified obtain HIV rapid and HIV viral load to r/o HIV syndrome, denies recent unprotected sex Cough suppressants as needed Optimize blood pressure meds Continue warfarin check TFTs, cortisol levels, cont hydrocortisone, desmopressin and synthroid SSI, cont glipizide, check a1c Hospitalist Physical - Constitutional Vitals: Temp Pulse Resp BP Pulse Ox 98.8 F 109 H 18 130/75 97 07/02/18 08:38 07/02/18 08:37 07/02/18 08:37 07/02/18 08:37 07/02/18 08:37 General appearance: Present: no acute distress, mild distress Results - Labs CBC & Chem 7: 07/01/18 20:16 07/01/18 20:16 Labs: Laboratory Last Values WBC 14.8 K/mm3 (4.5-11.0) H 07/01/18 20:16 RBC 5.80 M/mm3 (3.65-5.03) H 07/01/18 20:16 Hgb 15.2 gm/dl (10.1-14.3) H 07/01/18 20:16 Hct 47.2 % (30.3-42.9) H 07/01/18 20:16 MCV 82 fl (79-97) 07/01/18 20:16 MCH 26 pg (28-32) L 07/01/18 20:16 MCHC 32 % (30-34) 07/01/18 20:16 RDW 15.3 % (13.2-15.2) H 07/01/18 20:16 Plt Count 169 K/mm3 (140-440) 07/01/18 20:16 Lymph % (Auto) 13.5 % (13.4-35.0) 07/01/18 20:16 [place] % (Auto) 5.6 % (0.0-7.3) 07/01/18 20:16 Eos % (Auto) 0.0 % (0.0-4.3) 07/01/18 20:16 Baso % (Auto) 0.6 % (0.0-1.8) 07/01/18 20:16 Lymph # 2.0 K/mm3 (1.2-5.4) 07/01/18 20:16 [place] # 0.8 K/mm3 (0.0-0.8) 07/01/18 20:16 Eos # 0.0 K/mm3 (0.0-0.4) 07/01/18 20:16 Baso # 0.1 K/mm3 (0.0-0.1) 07/01/18 20:16 Seg Neutrophils % 80.3 % (40.0-70.0) H 07/01/18 20:16 Seg Neutrophils # 11.9 K/mm3 (1.8-7.7) H 07/01/18 20:16 APTT 51.3 Sec. (24.2-36.6) H 07/01/18 20:26 Sodium 142 mmol/L (137-145) 07/01/18 20:16 Potassium 4.2 mmol/L (3.6-5.0) 07/01/18 20:16 Chloride 102.4 mmol/L (98-107) 07/01/18 20:16 Carbon Dioxide 24 mmol/L (22-30) 07/01/18 20:16 Anion Gap 20 mmol/L 07/01/18 20:16 BUN 22 mg/dL (7-17) H 07/01/18 20:16 Creatinine 1.6 mg/dL (0.7-1.2) H 07/01/18 20:16 Estimated GFR 44 ml/min 07/01/18 20:16 BUN/Creatinine Ratio 14 % 07/01/18 20:16 Glucose 63 mg/dL (65-100) L 07/01/18 20:16 POC Glucose 203 (70-105) H 07/02/18 11:16 Lactic Acid 0.60 mmol/L (0.7-2.0) L 07/01/18 22:41 Calcium 9.8 mg/dL (8.4-10.2) 07/01/18 20:16 Total Bilirubin 0.40 mg/dL (0.1-1.2) 07/01/18 20:16 AST 67 units/L (5-40) H 07/01/18 20:16 ALT 53 units/L (7-56) 07/01/18 20:16 Alkaline Phosphatase 124 units/L (35-129) 07/01/18 20:16 Total Protein 9.1 g/dL (6.3-8.2) H 07/01/18 20:16 Albumin 3.9 g/dL (3.9-5) 07/01/18 20:16 Albumin/Globulin Ratio 0.8 % 07/01/18 20:16 Urine Color Yellow (Yellow) 07/01/18 23:14 Urine Turbidity Slightly-cloudy (Clear) 07/01/18 23:14 Urine pH 5.0 (5.0-7.0) 07/01/18 23:14 Ur Specific [place] 1.006 (1.003-1.030) 07/01/18 23:14 Urine Protein <15 mg/dl mg/dL (Negative) 07/01/18 23:14 Urine Glucose (UA) Neg mg/dL (Negative) 07/01/18 23:14 Urine Ketones Neg mg/dL (Negative) 07/01/18 23:14 Urine Blood Neg (Negative) 07/01/18 23:14 Urine Nitrite Neg (Negative) 07/01/18 23:14 Urine Bilirubin Neg (Negative) 07/01/18 23:14 Urine Urobilinogen < 2.0 mg/dL (<2.0) 07/01/18 23:14 Ur Leukocyte Esterase Tr (Negative) 07/01/18 23:14 Urine WBC (Auto) 10.0 /HPF (0.0-6.0) H 07/01/18 23:14 Urine RBC (Auto) 3.0 /HPF (0.0-6.0) 07/01/18 23:14 U Epithel Cells (Auto) 1.0 /HPF (0-13.0) 07/01/18 23:14 Urine Mucus 1+ /HPF 07/01/18 23:14 Influenza A (Rapid) Negative (Negative) 07/01/18 22:51 Influenza B (Rapid) Negative (Negative) 07/01/18 22:51 Group A Strep Rapid Negative (Negative) 07/01/18 22:51 Active Medications - Current Medications Current Medications: Generic Name Dose Route Start Last Admin Trade Name Freq PRN Reason Stop Dose Admin Acetaminophen 650 mg 07/02/18 02:39 Tylenol PO Q4H PRN Pain MILD(1-3)/Fever >100.5/GARCIA Acetaminophen/Butalbital/Caffeine 1 tab 07/02/18 11:54 Fioricet PO Q8HR PRN Headache Albuterol/Ipratropium 1 ampul 07/02/18 08:00 07/02/18 08:25 Duoneb *Not For Prn Use* IH 1 ampul Q6HRT [facility] Administration Dextrose 50 ml 07/02/18 02:39 D50w (25gm) Syringe IV PRN PRN Hypoglycemia Gabapentin 100 mg 07/02/18 14:00 Neurontin PO TID [facility]IR[facility]A Hydrocortisone Acetate 20 mg 07/03/18 10:00 Cortef PO DAILY [facility] Sodium Chloride 1,000 mls @ 100 mls/hr 07/02/18 03:00 07/02/18 05:31 Nacl 0.9% 1000 Ml IV 100 mls/hr DIRECT [facility]A Administration Ibuprofen 800 mg 07/02/18 11:54 Motrin PO Q8HR PRN Pain Insulin Human Lispro 0 unit 07/02/18 16:30 Humalog SUB-Q ACHS [facility] Protocol Levothyroxine Sodium 112 mcg 07/03/18 10:00 Synthroid PO DAILY [facility] Lisinopril 5 mg 07/02/18 13:00 Zestril PO QDAY [facility] Methylprednisolone Sodium Succinate 60 mg 07/02/18 06:00 07/02/18 05:31 Solu-Medrol IV 60 mg Q8HR [facility] Administration Miscellaneous Medication 2 spray 07/03/18 10:00 Desmopressin 0.01% InNostril DAILY [facility] Miscellaneous Medication 1 mg 07/03/18 10:00 Glimepiride [Glimepiride] PO DAILY [facility] Miscellaneous Medication 40 mg 07/02/18 22:00 Simvastatin PO QHS [facility] Ondansetron HCl 4 mg 07/02/18 02:39 Zofran IV Q8H PRN Nausea And Vomiting Paroxetine HCl 10 mg 07/02/18 14:00 Paxil PO TID [facility]IR[facility]A Sodium Chloride 10 ml 07/02/18 10:00 07/02/18 11:14 Sodium Chloride Flush Syringe 10 Ml IV 10 ml BID [facility] Administration Sodium Chloride 10 ml 07/02/18 02:39 Sodium Chloride Flush Syringe 10 Ml IV PRN PRN LINE FLUSH Warfarin Sodium 10 mg 07/02/18 17:00 Coumadin PO DAILY@1700 [facility] Protocol
[2018-07-02 13:51] LABS: INR 1.25 (0.87-1.13)
[2018-07-02] MEDS ORDERED: PAXIL PO SCH (14:00)
[2018-07-02 14:18] LABS: Free T4 (Free Thyroxine) 1.52 ng/dL (0.76-1.46)
--- NOTE | 2018-07-02 14:38 | Consultation ---
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 Cough is with yellowish sputum production. Mother noted she was lethargic. She was nauseated and vomited x 1. She attends a day program. Mother denies sick contacts. In the ED, temp 102.5, HR 134, R 20, BP 133/81, R 20. WBC 14.8. Hg 1.2. Plat 169. Creat 1.6. AST 67. UA trace LE 10 wbc. HIV neg. GAS neg. Rapid influena neg. CXR negative. Chest CT no infiltrates. Blood cultures 07/01/2018 no growth today. Review of Systems: General: + fever, chills, nightsweats, +falls Cutaneous: no rash, pruritus Head: no headaches or injury Eyes: no changes in vision, eye pain, double vision Ears: no ear pain, ear discharge, ringing or hearing loss Nose: no nose bleeding, stuffiness Mouth & throat: no bleeding gums, no horseness, no dental problems, or swollen glands Neck: no pain, node enlargement/lumps, tyroid enlargement or tenderness Respiratory: +cough, no wheezing, + sputum, no hemoptysis, pleuritic chest pain Cardiovascular: no chest pain, leg edema, cyanosis, BROOKS, orthopnea Musculoskeletal: no decreased joint motion, bone or joint pain, joint swelling, muscle aches Gastrointestinal: no nausea, vomiting, hematemesis, diarrhea, constipation, melena, bright red blood in stools, fecal incontinence, jaundice Genitourinary/Reproductive: no frequent urination, dysuria, hematuria, incontinence Neurogical: +lethargy, no seizures, no headaches, no weakness, no paresthesias, no loss of speech or vision; no memory loss, no vertigo, no tremors, no numbness Psychiatric: stable mood; no excessive anxiety, sadness or moodiness Past History Past Medical History: diabetes, hypertension, hyperlipidemia, hypothyroidism, renal failure Past Surgical History: No surgical history Social history: no significant social history, lives with family Medications and Allergies Allergies Allergy/AdvReac Type Severity Reaction Status Date / Time No Known Allergies Allergy Verified 05/07/16 09:44 Home Medications Medication Instructions Recorded Confirmed Last Taken Type Aspirin [Aspirin TAB] 325 mg PO DAILY 09/20/13 02/20/15 01/08/15 History DESMOPRESSIN 0.01%(nf) [Ddavp(Nf)] 2 spray INNOSTRIL DAILY 09/20/13 02/20/15 01/08/15 History Gabapentin 100 mg PO TID 09/20/13 02/20/15 01/08/15 History Glimepiride 1 mg PO DAILY 09/20/13 02/20/15 01/08/15 History Hydrocortisone 20 mg PO DAILY 09/20/13 02/20/15 01/08/15 History Levothyroxine [Synthroid] 112 mcg PO DAILY 09/20/13 02/20/15 01/08/15 History Simvastatin (Nf) [Zocor TAB] 40 mg PO QHS 09/20/13 02/20/15 01/07/15 History Warfarin [Coumadin] 10 mg PO DAILY@1700 14 Days tablet 12/04/14 02/20/15 01/08/15 Rx Amlodipine Besylate [Norvasc] 2.5 mg PO DAILY 30 Days tab 01/09/15 02/20/15 Unknown Rx HYDROcodone/APAP 10-325 [[place] 1 each PO Q8HR PRN #20 tablet 01/09/15 02/20/15 Unknown Rx 10/325] PARoxetine [Paxil] 10 mg PO TID #90 tablet 04/16/15 Unknown Rx traMADol [Ultram] 50 mg PO Q4HR PRN #20 tablet 04/16/15 Unknown Rx HYDROcodone/APAP 5-325 [[place] 1 each PO Q6HR PRN #15 tablet 07/31/15 Unknown Rx 5-325 mg TAB] Ibuprofen [Motrin 800 MG tab] 800 mg PO Q8HR PRN #30 tablet 11/14/15 Unknown Rx Sulfamethoxazole/Trimethoprim 1 each PO BID #14 tablet 12/27/15 Unknown Rx [Bactrim DS TAB] Butalb/Acetamin/Caff 50-325-40 1 tab PO Q8HR PRN #20 tablet 05/07/16 Unknown Rx [Fioricet] Active Meds: Active Medications Acetaminophen (Tylenol) 650 mg PO Q4H PRN PRN Reason: Pain MILD(1-3)/Fever >100.5/GARCIA Acetaminophen/Butalbital/Caffeine (Fioricet) 1 tab PO Q8HR PRN PRN Reason: Headache Albuterol/Ipratropium (Duoneb *Not For Prn Use*) 1 ampul IH Q6HRT [facility] Last Admin: 07/02/18 14:24 Dose: 1 ampul Documented by: Dextrose (D50w (25gm) Syringe) 50 ml IV PRN PRN PRN Reason: Hypoglycemia Gabapentin (Neurontin) 100 mg PO TID [facility] Glimepiride (Amaryl) 1 mg PO QDDIAB [facility] Hydrocortisone Acetate (Cortef) 20 mg PO DAILY [facility] Sodium Chloride (Nacl 0.9% 1000 Ml) 1,000 mls @ 100 mls/hr IV DIRECT [facility] Last Admin: 07/02/18 05:31 Dose: 100 mls/hr Documented by: Ibuprofen (Motrin) 800 mg PO Q8HR PRN PRN Reason: Pain Insulin Human Lispro (Humalog) 0 unit SUB-Q ACHS [facility]; Protocol Levothyroxine Sodium (Synthroid) 112 mcg PO DAILY@0600 [facility] Lisinopril (Zestril) 5 mg PO QDAY [facility] Methylprednisolone Sodium Succinate (Solu-Medrol) 60 mg IV Q8HR [facility] Last Admin: 07/02/18 05:31 Dose: 60 mg Documented by: Miscellaneous Medication (Desmopressin 0.01%) 2 spray InNostril DAILY [facility] Ondansetron HCl (Zofran) 4 mg IV Q8H PRN PRN Reason: Nausea And Vomiting Paroxetine HCl (Paxil) 10 mg PO TID [facility] Pravastatin Sodium (Pravachol) 80 mg PO QHS [facility] Sodium Chloride (Sodium Chloride Flush Syringe 10 Ml) 10 ml IV BID [facility] Last Admin: 07/02/18 11:14 Dose: 10 ml Documented by: Sodium Chloride (Sodium Chloride Flush Syringe 10 Ml) 10 ml IV PRN PRN PRN Reason: LINE FLUSH Warfarin Sodium (Coumadin) 10 mg PO DAILY@1700 [facility]; Protocol Physical Examination - Physical Exam Narrative exam: General appearance: Alert in NAD, conversant Eyes: anicteric sclerae, moist conjunctivae; no lid-lag; PERRLA HENT: Atraumatic; oropharynx clear with moist mucous membranes and no mucosal ulcerations/no oral thrush; normal hard and soft palate. Normal external ears. Neck: Trachea midline; supple, no thyromegaly or lymphadenopathy Lungs: CTA, with normal respiratory effort and no intercostal retractions CV: tachycardic Abdomen: Soft, non-tender; no masses or hepatosplenomegaly Extremities: No peripheral edema or extremity lymphadenopathy Skin: Normal temperature, turgor and texture; no rash, ulcers or subcutaneous nodules Psych: Appropriate affect, alert and oriented to person, place and time. Neuro: alert and oriented x 3. Moving all extermities - Constitutional Vitals: Vital Signs Temp Pulse Resp BP Pulse Ox 98.8 F 109 H 18 130/75 97 07/02/18 08:38 07/02/18 08:37 07/02/18 08:37 07/02/18 08:37 07/02/18 08:37 Temperature -Last 24 Hours Temperature 98.8 F Temperature 98.5 F Temperature 99.8 F Temperature 102.5 F Temperature 98.4 F Results - Labs CBC & Chem 7: 07/01/18 20:16 07/01/18 20:16 Labs: Abnormal lab results 07/01/18 07/01/18 07/01/18 Range/Units 20:16 20:16 20:26 WBC 14.8 H (4.5-11.0) K/mm3 RBC 5.80 H (3.65-5.03) M/mm3 Hgb 15.2 H (10.1-14.3) gm/dl Hct 47.2 H (30.3-42.9) % MCH 26 L (28-32) pg RDW 15.3 H (13.2-15.2) % Seg Neutrophils % 80.3 H (40.0-70.0) % Seg Neutrophils # 11.9 H (1.8-7.7) K/mm3 PT (12.2-14.9) Sec. INR (0.87-1.13) APTT 51.3 H (24.2-36.6) Sec. BUN 22 H (7-17) mg/dL Creatinine 1.6 H (0.7-1.2) mg/dL Glucose 63 L (65-100) mg/dL POC Glucose (70-105) Hemoglobin A1c (4-6) % Lactic Acid (0.7-2.0) mmol/L AST 67 H (5-40) units/L Total Protein 9.1 H (6.3-8.2) g/dL TSH (0.270-4.200) mlU/mL Free T4 (0.76-1.46) ng/dL Urine WBC (Auto) (0.0-6.0) /HPF 07/01/18 07/01/18 07/02/18 Range/Units 22:41 23:14 00:15 WBC (4.5-11.0) K/mm3 RBC (3.65-5.03) M/mm3 Hgb (10.1-14.3) gm/dl Hct (30.3-42.9) % MCH (28-32) pg RDW (13.2-15.2) % Seg Neutrophils % (40.0-70.0) % Seg Neutrophils # (1.8-7.7) K/mm3 PT (12.2-14.9) Sec. INR (0.87-1.13) APTT (24.2-36.6) Sec. BUN (7-17) mg/dL Creatinine (0.7-1.2) mg/dL Glucose (65-100) mg/dL POC Glucose 57 L (70-105) Hemoglobin A1c (4-6) % Lactic Acid 0.60 L (0.7-2.0) mmol/L AST (5-40) units/L Total Protein (6.3-8.2) g/dL TSH (0.270-4.200) mlU/mL Free T4 (0.76-1.46) ng/dL Urine WBC (Auto) 10.0 H (0.0-6.0) /HPF 07/02/18 07/02/18 07/02/18 Range/Units 05:31 11:16 13:19 WBC (4.5-11.0) K/mm3 RBC (3.65-5.03) M/mm3 Hgb (10.1-14.3) gm/dl Hct (30.3-42.9) % MCH (28-32) pg RDW (13.2-15.2) % Seg Neutrophils % (40.0-70.0) % Seg Neutrophils # (1.8-7.7) K/mm3 PT 16.5 H (12.2-14.9) Sec. INR 1.25 H (0.87-1.13) APTT (24.2-36.6) Sec. BUN (7-17) mg/dL Creatinine (0.7-1.2) mg/dL Glucose (65-100) mg/dL POC Glucose 65 L 203 H (70-105) Hemoglobin A1c (4-6) % Lactic Acid (0.7-2.0) mmol/L AST (5-40) units/L Total Protein (6.3-8.2) g/dL TSH (0.270-4.200) mlU/mL Free T4 (0.76-1.46) ng/dL Urine WBC (Auto) (0.0-6.0) /HPF 07/02/18 07/02/18 07/02/18 Range/Units 13:19 13:19 13:19 WBC (4.5-11.0) K/mm3 RBC (3.65-5.03) M/mm3 Hgb (10.1-14.3) gm/dl Hct (30.3-42.9) % MCH (28-32) pg RDW (13.2-15.2) % Seg Neutrophils % (40.0-70.0) % Seg Neutrophils # (1.8-7.7) K/mm3 PT (12.2-14.9) Sec. INR (0.87-1.13) APTT (24.2-36.6) Sec. BUN (7-17) mg/dL Creatinine (0.7-1.2) mg/dL Glucose (65-100) mg/dL POC Glucose (70-105) Hemoglobin A1c (4-6) % Lactic Acid (0.7-2.0) mmol/L AST (5-40) units/L Total Protein (6.3-8.2) g/dL TSH 0.013 L 0.013 L (0.270-4.200) mlU/mL Free T4 1.52 H 1.51 H (0.76-1.46) ng/dL Urine WBC (Auto) (0.0-6.0) /HPF 07/02/18 Range/Units 13:19 WBC (4.5-11.0) K/mm3 RBC (3.65-5.03) M/mm3 Hgb (10.1-14.3) gm/dl Hct (30.3-42.9) % MCH (28-32) pg RDW (13.2-15.2) % Seg Neutrophils % (40.0-70.0) % Seg Neutrophils # (1.8-7.7) K/mm3 PT (12.2-14.9) Sec. INR (0.87-1.13) APTT (24.2-36.6) Sec. BUN (7-17) mg/dL Creatinine (0.7-1.2) mg/dL Glucose (65-100) mg/dL POC Glucose (70-105) Hemoglobin A1c 7.8 H (4-6) % Lactic Acid (0.7-2.0) mmol/L AST (5-40) units/L Total Protein (6.3-8.2) g/dL TSH (0.270-4.200) mlU/mL Free T4 (0.76-1.46) ng/dL Urine WBC (Auto) (0.0-6.0) /HPF Assessment and Plan Cultures: Blood cultures 07/01/2018 no growth today. 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 UA not c/w UTI to explain the sepsis. CXR and Chest CT no consolidations. HIV neg. GAS neg. Rapid influenza negative. Blood cultures 07/01/2018 no growth today. Noted mild elevated LFT. DDx. cholecystitis?, meningitis+/-VPS infection?, influenza?. - DILIP: Creat 1.6. CrCL 75 - Elevated LFTs: mild, AST 67. - Hyperthyroidism Recommendations: - follow-up blood cultures, urine culture - check influenza PCR - check RUQ US r/o cholecystitis - start cefepime 2 gm IV q12 hour and vancomycin renally adjusted - if fever continues and initial w/u is negative consider LP to r/o meningitis and if so will require evaluation for VPS infection Dr Layne will be covering this weekend Julia Montaño MD Infectious Diseases [employer] [facility] ([facility] M [phone] O [phone]
[2018-07-02] MEDS ORDERED: COUMADIN PO SCH (17:00)
[2018-07-02] MEDS: LOVENOX SUB-Q SCH ×2 (17:19→22:33)
--- NOTE | 2018-07-02 17:19 | Vascular Lab Report ---
PROCEDURE: VL VENOUS DUPLEX LE BILAT TECHNIQUE: Ultrasound bilateral lower extremity veins with pulsed color Doppler evaluation HISTORY: LE edema COMPARISONS: FINDINGS: Ultrasound deep venous system left lower extremity from the common femoral through the visualized pro ximal calf veins demonstrates normal sonographic appearance and normal flow on pulsed and color Doppl er evaluation with normal venous waveform Ultrasound deep venous system of the right lower extremity from the common through the superficial fe moral veins demonstrates normal vascular flow and sonographic appearance. Within the right popliteal vein there is some mural echogenic material with complete compressibility. There is some flow present on pulsed and color Doppler evaluation. IMPRESSION: Partial thrombus in the right popliteal vein appears likely chronic. No occluding thrombus identified bilaterally. This document is electronically signed by Emeterio Bond MD., July 02 2018 05:17:16 PM ET
[2018-07-02] MEDS: ZESTRIL PO SCH (17:20)
[2018-07-02] MEDS: NEURONTIN PO SCH ×2 (17:35→22:26)
[2018-07-02] MEDS ORDERED: .VANCOMYCIN VIAL 1,000 MG in NACL 0.9% 100 ML IV SCH (21:00)
[2018-07-02] MEDS ORDERED: VANCOMYCIN PHARMACY TO DOSE IV SCH (21:00)
[2018-07-02] MEDS ORDERED: NON-FORMULARY (Simvastatin 40 MG) PO SCH (22:00)
[2018-07-02] MEDS: MAXIPIME/NS 2 GM/100 ML 2 GM/100 ML BAG IV SCH (22:26)
[2018-07-02] MEDS: PRAVACHOL PO SCH (22:27)
[2018-07-02] MEDS ORDERED: VANCOMYCIN 1,500 MG in NACL 0.9% 500 ML 500 ML IV ONE (23:00)
[2018-07-03] MEDS: DUONEB *Not for PRN Use IH SCH ×4 (03:51→20:58)
[2018-07-03] MEDS: SOLU-Medrol IV SCH ×3 (05:12→21:44)
[2018-07-03] MEDS: NACL 0.9% 1000 ML 1,000 ML IV SCH ×2 (05:12→21:42)
[2018-07-03] MEDS ORDERED: SYNTHROID PO SCH (06:00)
[2018-07-03 08:25] LABS: INR 1.86 (0.87-1.13)
--- NOTE | 2018-07-03 08:45 | Ultrasound Report ---
PROCEDURE: US ABDOMEN LIMITED TECHNIQUE: Grayscale and color Doppler right upper quadrant ultrasound HISTORY: eval for cholecystitis COMPARISONS: None. FINDINGS: Liver is normal in size and contour. Hepatic parenchymal echogenicity is within normal limits. No p arenchymal lesion identified. No intra or extra hepatic biliary ductal dilatation. The common duct measures approximately 1 millimeters in caliber. No cholelithiasis. Gallbladder wall measures approximately 1-2 millimeters in thickness. The pancreas is not well seen secondary to overlying bowel gas. No abdominal ascites or free fluid in Echavarria's pouch. The right kidney measures up to 9.2 cm in le ngth and is without hydronephrosis or echogenic shadowing foci to suggest nephrolithiasis. IMPRESSION: Unremarkable sonographic appearance of the gallbladder. This document is electronically signed by Tano Haro MD., July 03 2018 08:43:49 AM ET
[2018-07-03] MEDS ORDERED: CORTEF PO SCH (10:00)
[2018-07-03] MEDS ORDERED: NON-FORMULARY (Glimepiride [Glimepiride] 1 MG) PO SCH (10:00)
[2018-07-03] MEDS: NEURONTIN PO SCH ×3 (10:38→21:40)
[2018-07-03] MEDS: ZESTRIL PO SCH (10:38)
[2018-07-03] MEDS: AMARYL PO SCH (10:38)
[2018-07-03] MEDS: PAXIL PO SCH (10:38)
[2018-07-03] MEDS: MAXIPIME/NS 2 GM/100 ML 2 GM/100 ML BAG IV SCH ×2 (10:39→21:39)
[2018-07-03] MEDS: LOVENOX SUB-Q SCH ×2 (10:39→21:39)
[2018-07-03] MEDS: SODIUM CHLORIDE FLUSH SYRINGE 10 ML IV SCH ×2 (10:48→21:40)
[2018-07-03] MEDS: HumaLOG SUB-Q SCH ×3 (10:53→17:46)
--- NOTE | 2018-07-03 11:32 | Progress Note ---
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 DM with persistent hyperglycemia chronic RLE edema from previous DVT in 2015, off coumadin x 6 months DILIP on CKD, has had CKD stage 2-3 previously Plan obtain VQ scan, fup echo, given patient's history of DVT to rule out PE, dopplers show chronic non occlusive dvt of RLE, cont lovenox and warfarin for now -cxr, CT chest and Rapid flu are neg, no source of infection presently identified HIV rapid was neg and HIV viral load to r/o HIV syndrome, denies recent unprotected sex Cough suppressants as needed Optimize blood pressure meds Continue warfarin TFTs who normal T4, cortisol levels pending, dc hydrocortisone,cont desmopressin and reduce synthroid dose as TSH is low -SSI, cont glipizide, add lantus, a1c 7.8 History Interval history: Review of systems Constitutional: No more fevers, no malaise, no joint pains CVS: No chest pain, no orthopnea, no dyspnea on exertion, no pedal edema GI: No abdominal pain, no diarrhea, no vomiting, no constipation Respiratory: c/o productive cough, pleurisy and sob Hospitalist Physical - Physical exam Narrative exam: General.: Appears well, no distress, nontoxic HEENT: Moist mucous membranes, extraocular muscles intact, no lymphadenopathy Neck: supple Cardiac: S1-S2 heard Lungs: intermittent crackles Abdomen: soft , nontender, nondistended, bowel sounds positive Extremities: RLE edema Skin: no rash or lesions Neurologic: no gross focal deficits Psych: calm, and cooperative - Constitutional Vitals: Temp Pulse Resp BP Pulse Ox 98.4 F 98 H 20 110/63 96 07/03/18 08:47 07/03/18 08:46 07/03/18 08:46 07/03/18 08:46 07/03/18 08:46 General appearance: Present: no acute distress, mild distress Results - Labs CBC & Chem 7: 07/01/18 20:16 07/03/18 07:50 Labs: Laboratory Last Values WBC 14.8 K/mm3 (4.5-11.0) H 07/01/18 20:16 RBC 5.80 M/mm3 (3.65-5.03) H 07/01/18 20:16 Hgb 15.2 gm/dl (10.1-14.3) H 07/01/18 20:16 Hct 47.2 % (30.3-42.9) H 07/01/18 20:16 MCV 82 fl (79-97) 07/01/18 20:16 MCH 26 pg (28-32) L 07/01/18 20:16 MCHC 32 % (30-34) 07/01/18 20:16 RDW 15.3 % (13.2-15.2) H 07/01/18 20:16 Plt Count 169 K/mm3 (140-440) 07/01/18 20:16 Lymph % (Auto) 13.5 % (13.4-35.0) 07/01/18 20:16 [place] % (Auto) 5.6 % (0.0-7.3) 07/01/18 20:16 Eos % (Auto) 0.0 % (0.0-4.3) 07/01/18 20:16 Baso % (Auto) 0.6 % (0.0-1.8) 07/01/18 20:16 Lymph # 2.0 K/mm3 (1.2-5.4) 07/01/18 20:16 [place] # 0.8 K/mm3 (0.0-0.8) 07/01/18 20:16 Eos # 0.0 K/mm3 (0.0-0.4) 07/01/18 20:16 Baso # 0.1 K/mm3 (0.0-0.1) 07/01/18 20:16 Seg Neutrophils % 80.3 % (40.0-70.0) H 07/01/18 20:16 Seg Neutrophils # 11.9 K/mm3 (1.8-7.7) H 07/01/18 20:16 PT 22.7 Sec. (12.2-14.9) H 07/03/18 07:50 INR 1.86 (0.87-1.13) H 07/03/18 07:50 APTT 51.3 Sec. (24.2-36.6) H 07/01/18 20:26 Sodium 142 mmol/L (137-145) 07/01/18 20:16 Potassium 4.2 mmol/L (3.6-5.0) 07/01/18 20:16 Chloride 102.4 mmol/L (98-107) 07/01/18 20:16 Carbon Dioxide 24 mmol/L (22-30) 07/01/18 20:16 Anion Gap 20 mmol/L 07/01/18 20:16 BUN 22 mg/dL (7-17) H 07/01/18 20:16 Creatinine 1.6 mg/dL (0.7-1.2) H 07/01/18 20:16 Estimated GFR 44 ml/min 07/01/18 20:16 BUN/Creatinine Ratio 14 % 07/01/18 20:16 Glucose 63 mg/dL (65-100) L 07/01/18 20:16 POC Glucose 342 (70-105) H 07/02/18 21:05 Hemoglobin A1c 7.8 % (4-6) H 07/02/18 13:19 Lactic Acid 0.60 mmol/L (0.7-2.0) L 07/01/18 22:41 Calcium 9.8 mg/dL (8.4-10.2) 07/01/18 20:16 Total Bilirubin 0.40 mg/dL (0.1-1.2) 07/01/18 20:16 AST 67 units/L (5-40) H 07/01/18 20:16 ALT 53 units/L (7-56) 07/01/18 20:16 Alkaline Phosphatase 124 units/L (35-129) 07/01/18 20:16 Total Protein 9.1 g/dL (6.3-8.2) H 07/01/18 20:16 Albumin 3.9 g/dL (3.9-5) 07/01/18 20:16 Albumin/Globulin Ratio 0.8 % 07/01/18 20:16 TSH 0.013 mlU/mL (0.270-4.200) L 07/02/18 13:19 Free T4 1.51 ng/dL (0.76-1.46) H 07/02/18 13:19 Thyroxine (T4) 8.2 ug/dL (4.0-12.0) 07/02/18 13:19 Urine Color Yellow (Yellow) 07/01/18 23:14 Urine Turbidity Slightly-cloudy (Clear) 07/01/18 23:14 Urine pH 5.0 (5.0-7.0) 07/01/18 23:14 Ur Specific [place] 1.006 (1.003-1.030) 07/01/18 23:14 Urine Protein <15 mg/dl mg/dL (Negative) 07/01/18 23:14 Urine Glucose (UA) Neg mg/dL (Negative) 07/01/18 23:14 Urine Ketones Neg mg/dL (Negative) 07/01/18 23:14 Urine Blood Neg (Negative) 07/01/18 23:14 Urine Nitrite Neg (Negative) 07/01/18 23:14 Urine Bilirubin Neg (Negative) 07/01/18 23:14 Urine Urobilinogen < 2.0 mg/dL (<2.0) 07/01/18 23:14 Ur Leukocyte Esterase Tr (Negative) 07/01/18 23:14 Urine WBC (Auto) 10.0 /HPF (0.0-6.0) H 07/01/18 23:14 Urine RBC (Auto) 3.0 /HPF (0.0-6.0) 07/01/18 23:14 U Epithel Cells (Auto) 1.0 /HPF (0-13.0) 07/01/18 23:14 Urine Mucus 1+ /HPF 07/01/18 23:14 HIV 1&2 Antibody Rapid Non react (Non React) 07/02/18 11:54 HIV P24 Antigen Non react (Non React) 07/02/18 11:54 Influenza A (Rapid) Negative (Negative) 07/01/18 22:51 Influenza B (Rapid) Negative (Negative) 07/01/18 22:51 Group A Strep Rapid Negative (Negative) 07/01/18 22:51 Active Medications - Current Medications Current Medications: Generic Name Dose Route Start Last Admin Trade Name Freq PRN Reason Stop Dose Admin Acetaminophen 650 mg 07/02/18 02:39 Tylenol PO Q4H PRN Pain MILD(1-3)/Fever >100.5/GARCIA Acetaminophen/Butalbital/Caffeine 1 tab 07/02/18 11:54 Fioricet PO Q8HR PRN Headache Albuterol/Ipratropium 1 ampul 07/02/18 08:00 07/03/18 09:05 Duoneb *Not For Prn Use* IH 1 ampul Q6HRT MIRTHA Administration Dextrose 50 ml 07/02/18 02:39 D50w (25gm) Syringe IV PRN PRN Hypoglycemia Enoxaparin Sodium 100 mg 07/02/18 16:00 07/03/18 10:39 Lovenox SUB-Q 100 mg Q12HR MIRTHA Administration Gabapentin 100 mg 07/02/18 14:00 07/03/18 10:38 Neurontin PO 100 mg TID MIRTHA Administration Glimepiride 1 mg 07/03/18 08:00 07/03/18 10:38 Amaryl PO 1 mg QDDIAB MIRTHA Administration Hydrocortisone Acetate 20 mg 07/03/18 10:00 07/03/18 10:38 Cortef PO 20 mg DAILY MIRTHA Administration Sodium Chloride 1,000 mls @ 100 mls/hr 07/02/18 03:00 07/03/18 05:12 Nacl 0.9% 1000 Ml IV 100 mls/hr DIRECT MIRTHA Administration Cefepime HCl 2 gm in 100 mls @ 200 mls/hr 07/02/18 22:00 07/03/18 10:39 Maxipime/Ns 2 Gm/100 Ml IV 200 mls/hr Q12HR MIRTHA Administration Protocol Vancomycin HCl 1,250 mg/ 275 mls @ 166.667 mls/hr 07/03/18 23:00 Sodium Chloride IV Q24H MIRTHA Ibuprofen 800 mg 07/02/18 11:54 Motrin PO Q8HR PRN Pain Insulin Human Lispro 0 unit 07/02/18 16:30 07/03/18 10:53 Humalog SUB-Q 1 unit ACHS MIRTHA Administration Protocol Levothyroxine Sodium 112 mcg 07/03/18 06:00 07/03/18 05:12 Synthroid PO 112 mcg DAILY@0600 MIRTHA Administration Lisinopril 5 mg 07/02/18 13:00 07/03/18 10:38 Zestril PO 5 mg QDAY MIRTHA Administration Methylprednisolone Sodium Succinate 60 mg 07/02/18 06:00 07/03/18 05:12 Solu-Medrol IV 60 mg Q8HR MIRTHA Administration Miscellaneous Medication 2 spray 07/03/18 10:00 Desmopressin 0.01% InNostril DAILY [facility] Ondansetron HCl 4 mg 07/02/18 02:39 Zofran IV Q8H PRN Nausea And Vomiting Paroxetine HCl 20 mg 07/03/18 10:00 07/03/18 10:38 Paxil PO 20 mg QDAY MIRTHA Administration Pravastatin Sodium 80 mg 07/02/18 22:00 07/02/18 22:27 Pravachol PO 80 mg QHS MIRTHA Administration Sodium Chloride 10 ml 07/02/18 10:00 07/03/18 10:48 Sodium Chloride Flush Syringe 10 Ml IV 10 ml BID MIRTHA Administration Sodium Chloride 10 ml 07/02/18 02:39 Sodium Chloride Flush Syringe 10 Ml IV PRN PRN LINE FLUSH Warfarin Sodium 10 mg 07/02/18 17:00 07/02/18 17:20 Coumadin PO 10 mg DAILY@1700 MIRTHA Administration Protocol Nutrition/Malnutrition Assess - Dietary Evaluation Nutrition/Malnutrition Findings: Nutrition Notes Start: 07/02/18 13:21 Freq: Status: Active Protocol: Document 07/02/18 13:22 CP (Rec: 07/02/18 13:45 CP [id number]) Co-Sign 07/02/18 13:22 LP Nutrition Notes Need for Assessment generated from: MD Order,Education Initial or Follow up Assessment Current Diagnosis Acute Kidney Injury,Diabetes, Sepsis Other Pertinent Diagnosis Pneumonia, UTI, depression, leukocytes, hypothythroidism Current Diet Mechanical Soft Labs/Tests Reviewed Pertinent Medications Reviewed Height 5 ft 8 in Weight 92.986 kg [place] Body Weight (kg) 63.63 BMI 31.1 Intake Prior to Admission Good Weight change and time frame Pt stated that she did not have weight loss/gain. Weight Status Obese Subjective/Other Information MD consult for diet education. Pt stated that her appetite is low and consumed 0% of her meals. Pt was open to Glucerna and reported no N/V/D/C. Pt responsive to diet education. Percent of energy/protein needs met: 0%./0% Burn Absent Trauma Absent #1 Nutrition Diagnosis Inadequate oral intake Etiology Low appetite As Evidenced by Signs and Symptoms Pt consuming 0% of her meals Is patient on ventilator? No Is Patient Ambulatory and/or Out of Bed No REE-([facility]-confined to bed) 1991.564 Kcal/Kg value to use for calculation 17 Approximate Energy Requirements Using 1581 kcal/Kg Calculation Used for Recommendations Kcal/kg Additional Notes Pro: (1-1.3g/kg) 93-121 g/day Fluid: 1mL/kcal or per MD request Nutrition Intervention Change Diet Order: Continue current or per MD request Add Supplement/Snack (indicate name/kcal Glucerna daily (chocolate) /protein ) Provides kCal: 220 Provides Protein (gm) 10 Teaching Recipient Patient Learning Readiness Good Teaching Methods Discussion,Handout Response to Teaching Verbalize understanding Education Handouts Provided Consistent carbohydrate Barriers to Learning No Barriers RD phone number provided No Patient aware of follow up options No Goal #1 Adherence to diet education Goal #2 PO and ONS intake to meet at least 75% of energy and protein needs Follow-Up By: 07/06/18 Additional Comments F/U: PO and ONS intakes
[2018-07-03 12:47] LABS: Calcium 8.3 mg/dL (8.4-10.2)
--- NOTE | 2018-07-03 13:38 | XRay Report ---
PROCEDURE: XR CHEST 1V AP TECHNIQUE: Chest radiograph single view. HISTORY: Shortness of breath, history of DVT, Venitlation/Perfusion test COMPARISONS: 07/02/2018 . FINDINGS: Right-sided ELECTROMECHANIC shunt again noted. Left central venous catheter distal tip again noted in region of right subclavian vein. Again, consid er repositioning. Limited examination due to prominent soft tissue attenuation. Slight thoracic spine curvature with upper left and lower right apices. There is no visible pulmonary consolidation. No radiographically visible pneumothorax. No evidence of pleural effusion. Cardiac silhouette size is normal without vascular congestion. No visible acute displaced fracture in the regional skeleton. IMPRESSION: No acute cardiopulmonary disease in the visualized chest. Left central venous catheter distal tip again noted in region of right subclavian vein. Consider repo sitioning This document is electronically signed by Carlton Vila MD., July 03 2018 01:36:42 PM ET
--- NOTE | 2018-07-03 13:40 | Nuclear Medicine Report ---
PROCEDURE: NM LUNG SCAN PERF/VENT TECHNIQUE: Ventilation/perfusion lung scan performed. Ventilation dosage: 12.31 mCi xenon-133 aeroso l. Perfusion dosage: 4.62 mCi technetium 99m MAA IV. HISTORY: sob, hx of DVT COMPARISON: Correlation with chest radiograph of 07/03/2018. FINDINGS: Ventilation images are homogeneous. There is normal washout of activity bilaterally. Perfusion is mildly heterogeneous. There is a linear perfusion defect on the left suggestive of small pleural effusion. There is a nonspecific focal area of radiotracer activity anteriorly on the right, not within the adenike g. There is a moderate-sized segmental defect involving superior segment of left lower lobe this is like ly a matched defect. Findings are compatible with low probability of pulmonary embolus. IMPRESSION: Moderate-sized matched segmental defect involving superior segment of left lower lobe. L ow probability of pulmonary embolus. This document is electronically signed by Meagan Rivera MD., July 03 2018 01:38:45 PM ET
[2018-07-03] MEDS: DESMOPRESSIN 0.01% InNostril SCH (14:00)
[2018-07-03] MEDS ORDERED: COUMADIN PO SCH (17:00)
[2018-07-03] MEDS: PRAVACHOL PO SCH (21:40)
[2018-07-03] MEDS ORDERED: LANTUS SUB-Q SCH (22:00)
[2018-07-03] MEDS: VANCOMYCIN 1,250 MG in NACL 0.9% 250ML 250 ML IV SCH (22:01)
[2018-07-04] MEDS: HumaLOG SUB-Q SCH ×6 (00:32→23:58)
[2018-07-04] MEDS: DUONEB *Not for PRN Use IH SCH ×4 (01:05→20:54)
[2018-07-04] MEDS: SOLU-Medrol IV SCH (05:56)
[2018-07-04] MEDS ORDERED: SYNTHROID PO SCH (06:00)
[2018-07-04 09:36] LABS: Calcium 9.2 mg/dL (8.4-10.2)
[2018-07-04 09:39] LABS: INR 2.4 (0.87-1.13)
[2018-07-04 09:59] LABS: Hematocrit 34.7 % (30.3-42.9); Hemoglobin 11.1 gm/dl (10.1-14.3)
[2018-07-04] MEDS: DESMOPRESSIN 0.01% InNostril SCH (10:18)
[2018-07-04] MEDS: LOVENOX SUB-Q SCH ×2 (10:18→23:01)
[2018-07-04] MEDS: PAXIL PO SCH (10:19)
[2018-07-04] MEDS: AMARYL PO SCH (10:19)
[2018-07-04] MEDS: NEURONTIN PO SCH ×3 (10:19→21:00)
[2018-07-04] MEDS: ZESTRIL PO SCH (10:20)
[2018-07-04] MEDS: SODIUM CHLORIDE FLUSH SYRINGE 10 ML IV SCH ×2 (10:24→23:04)
[2018-07-04] MEDS: MAXIPIME/NS 2 GM/100 ML 2 GM/100 ML BAG IV SCH ×2 (10:34→23:02)
[2018-07-04] MEDS: NACL 0.9% 1000 ML 1,000 ML IV SCH (10:47)
[2018-07-04] MEDS ORDERED: STERILE IV SCH (11:00)
[2018-07-04] MEDS ORDERED: WATER IV SCH (11:00)
--- NOTE | 2018-07-04 11:11 | Progress Note ---
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 DM with persistent hyperglycemia chronic RLE edema from previous DVT in 2015, off coumadin x 6 months DILIP on CKD, has had CKD stage 2-3 previously hypophostatemia hypernatremia tachycardia, persistent Plan obtain VQ scan, fup echo, given patient's history of DVT to rule out PE, dopplers show chronic non occlusive dvt of RLE, cont lovenox and warfarin for now, would still want to get CTA when cr is better -echo shows preserved EF, no thrombus -check LEXIE and autoimmune panel -cxr, CT chest and Rapid flu are neg, no source of infection presently identified HIV rapid was neg and HIV viral load to r/o HIV syndrome, denies recent unprotected sex Cough suppressants as needed Optimize blood pressure meds Continue warfarin and lovenox, dc lovenox tomorrow after INR therapeutic x 2days TSh suppressed, slightly elevated Ft4, synthroid dose reduced, cortisol levels pending, dc hydrocortisone,cont desmopressin -optimize insulins -oral phos ordered, dc NS, rx with 1/4NS x 1 day -check 12 lead EKG History Interval history: has been persistently tachycardic Review of systems Constitutional: No more fevers, c/o malaise, no joint pains CVS: No chest pain, no orthopnea, no dyspnea on exertion, no pedal edema GI: No abdominal pain, no diarrhea, no vomiting, no constipation Respiratory: c/o productive cough, pleurisy and sob Hospitalist Physical - Physical exam Narrative exam: General.: Appears ill, mild distress HEENT: Moist mucous membranes, extraocular muscles intact, no lymphadenopathy Neck: supple Cardiac: S1-S2 heard Lungs: intermittent crackles Abdomen: soft , nontender, nondistended, bowel sounds positive Extremities: RLE edema Skin: no rash or lesions Neurologic: no gross focal deficits Psych: calm, and cooperative - Constitutional Vitals: Temp Pulse Resp BP Pulse Ox 98.0 F 125 H 20 114/69 96 07/04/18 09:43 07/04/18 09:41 07/04/18 09:41 07/04/18 09:41 07/04/18 09:41 General appearance: Present: no acute distress, mild distress Results - Labs CBC & Chem 7: 07/04/18 08:45 07/04/18 08:45 Labs: Laboratory Last Values WBC 14.8 K/mm3 (4.5-11.0) H 07/01/18 20:16 RBC 5.80 M/mm3 (3.65-5.03) H 07/01/18 20:16 Hgb 11.1 gm/dl (10.1-14.3) D 07/04/18 08:45 Hct 34.7 % (30.3-42.9) D 07/04/18 08:45 MCV 82 fl (79-97) 07/01/18 20:16 MCH 26 pg (28-32) L 07/01/18 20:16 MCHC 32 % (30-34) 07/01/18 20:16 RDW 15.3 % (13.2-15.2) H 07/01/18 20:16 Plt Count 169 K/mm3 (140-440) 07/01/18 20:16 Lymph % (Auto) 13.5 % (13.4-35.0) 07/01/18 20:16 [place] % (Auto) 5.6 % (0.0-7.3) 07/01/18 20:16 Eos % (Auto) 0.0 % (0.0-4.3) 07/01/18 20:16 Baso % (Auto) 0.6 % (0.0-1.8) 07/01/18 20:16 Lymph # 2.0 K/mm3 (1.2-5.4) 07/01/18 20:16 [place] # 0.8 K/mm3 (0.0-0.8) 07/01/18 20:16 Eos # 0.0 K/mm3 (0.0-0.4) 07/01/18 20:16 Baso # 0.1 K/mm3 (0.0-0.1) 07/01/18 20:16 Seg Neutrophils % 80.3 % (40.0-70.0) H 07/01/18 20:16 Seg Neutrophils # 11.9 K/mm3 (1.8-7.7) H 07/01/18 20:16 PT 27.8 Sec. (12.2-14.9) H 07/04/18 08:45 INR 2.40 (0.87-1.13) H 07/04/18 08:45 APTT 51.3 Sec. (24.2-36.6) H 07/01/18 20:26 Sodium 151 mmol/L (137-145) H 07/04/18 08:45 Potassium 4.4 mmol/L (3.6-5.0) 07/04/18 08:45 Chloride 115.9 mmol/L (98-107) H 07/04/18 08:45 Carbon Dioxide 25 mmol/L (22-30) 07/04/18 08:45 Anion Gap 15 mmol/L 07/04/18 08:45 BUN 23 mg/dL (7-17) H 07/04/18 08:45 Creatinine 1.3 mg/dL (0.7-1.2) H 07/04/18 08:45 Estimated GFR 55 ml/min 07/04/18 08:45 BUN/Creatinine Ratio 18 % 07/04/18 08:45 Glucose 361 mg/dL (65-100) H 07/04/18 08:45 POC Glucose 340 (70-105) H 07/04/18 07:58 Hemoglobin A1c 7.8 % (4-6) H 07/02/18 13:19 Lactic Acid 0.60 mmol/L (0.7-2.0) L 07/01/18 22:41 Calcium 9.2 mg/dL (8.4-10.2) 07/04/18 08:45 Phosphorus 2.20 mg/dL (2.5-4.5) L 07/04/18 08:45 Magnesium 2.10 mg/dL (1.7-2.3) 07/04/18 08:45 Total Bilirubin 0.40 mg/dL (0.1-1.2) 07/01/18 20:16 AST 67 units/L (5-40) H 07/01/18 20:16 ALT 53 units/L (7-56) 07/01/18 20:16 Alkaline Phosphatase 124 units/L (35-129) 07/01/18 20:16 Total Protein 9.1 g/dL (6.3-8.2) H 07/01/18 20:16 Albumin 3.9 g/dL (3.9-5) 07/01/18 20:16 Albumin/Globulin Ratio 0.8 % 07/01/18 20:16 TSH 0.013 mlU/mL (0.270-4.200) L 07/02/18 13:19 Free T4 1.51 ng/dL (0.76-1.46) H 07/02/18 13:19 Thyroxine (T4) 8.2 ug/dL (4.0-12.0) 07/02/18 13:19 Urine Color Yellow (Yellow) 07/01/18 23:14 Urine Turbidity Slightly-cloudy (Clear) 07/01/18 23:14 Urine pH 5.0 (5.0-7.0) 07/01/18 23:14 Ur Specific [place] 1.006 (1.003-1.030) 07/01/18 23:14 Urine Protein <15 mg/dl mg/dL (Negative) 07/01/18 23:14 Urine Glucose (UA) Neg mg/dL (Negative) 07/01/18 23:14 Urine Ketones Neg mg/dL (Negative) 07/01/18 23:14 Urine Blood Neg (Negative) 07/01/18 23:14 Urine Nitrite Neg (Negative) 07/01/18 23:14 Urine Bilirubin Neg (Negative) 07/01/18 23:14 Urine Urobilinogen < 2.0 mg/dL (<2.0) 07/01/18 23:14 Ur Leukocyte Esterase Tr (Negative) 07/01/18 23:14 Urine WBC (Auto) 10.0 /HPF (0.0-6.0) H 07/01/18 23:14 Urine RBC (Auto) 3.0 /HPF (0.0-6.0) 07/01/18 23:14 U Epithel Cells (Auto) 1.0 /HPF (0-13.0) 07/01/18 23:14 Urine Mucus 1+ /HPF 07/01/18 23:14 HIV 1&2 Antibody Rapid Non react (Non React) 07/02/18 11:54 HIV P24 Antigen Non react (Non React) 07/02/18 11:54 Influenza A (Rapid) Negative (Negative) 07/01/18 22:51 Influenza B (Rapid) Negative (Negative) 07/01/18 22:51 Group A Strep Rapid Negative (Negative) 07/01/18 22:51 Active Medications - Current Medications Current Medications: Generic Name Dose Route Start Last Admin Trade Name Freq PRN Reason Stop Dose Admin Acetaminophen 650 mg 07/02/18 02:39 Tylenol PO Q4H PRN Pain MILD(1-3)/Fever >100.5/GARCIA Acetaminophen/Butalbital/Caffeine 1 tab 07/02/18 11:54 Fioricet PO Q8HR PRN Headache Albuterol/Ipratropium 1 ampul 07/02/18 08:00 07/04/18 08:47 Duoneb *Not For Prn Use* IH 1 ampul Q6HRT MIRTHA Administration Dextrose 50 ml 07/02/18 02:39 D50w (25gm) Syringe IV PRN PRN Hypoglycemia Enoxaparin Sodium 100 mg 07/02/18 16:00 07/04/18 10:18 Lovenox SUB-Q 100 mg Q12HR MIRTHA Administration Gabapentin 100 mg 07/02/18 14:00 07/04/18 10:19 Neurontin PO 100 mg TID MIRTHA Administration Cefepime HCl 2 gm in 100 mls @ 200 mls/hr 07/02/18 22:00 07/04/18 10:34 Maxipime/Ns 2 Gm/100 Ml IV 200 mls/hr Q12HR MIRTHA Administration Protocol Vancomycin HCl 1,250 mg/ 275 mls @ 166.667 mls/hr 07/03/18 23:00 07/03/18 22:01 Sodium Chloride IV 166.667 mls/hr Q24H MIRTHA Administration sodium chloride 38.5 meq/ 0 mls @ 50 mls/hr 07/04/18 11:00 Sterile Water IV 07/05/18 10:59 DIRECT MIRTHA Insulin Glargine 20 units 07/04/18 12:00 Lantus SUB-Q BID MIRTHA Insulin Human Lispro 0 unit 07/02/18 16:30 07/04/18 10:35 Humalog SUB-Q 1 unit ACHS MIRTHA Administration Protocol Insulin Human Lispro 5 unit 07/04/18 11:30 Humalog SUB-Q AC [facility] Levothyroxine Sodium 100 mcg 07/04/18 06:00 07/04/18 05:56 Synthroid PO 100 mcg DAILY@0600 MIRTHA Administration Lisinopril 5 mg 07/02/18 13:00 07/04/18 10:20 Zestril PO Not Given QDAY MIRTHA Miscellaneous Medication 2 spray 07/03/18 14:00 07/04/18 10:18 Desmopressin 0.01% InNostril Not Given DAILY MIRTHA Ondansetron HCl 4 mg 07/02/18 02:39 Zofran IV Q8H PRN Nausea And Vomiting Paroxetine HCl 20 mg 07/03/18 10:00 07/04/18 10:19 Paxil PO 20 mg QDAY MIRTHA Administration Potassium Phos/Sodium Phos 1 each 07/04/18 14:00 Phos-Nak PO Q8HR MIRTHA Pravastatin Sodium 80 mg 07/02/18 22:00 07/03/18 21:40 Pravachol PO 80 mg QHS MIRTHA Administration Sodium Chloride 10 ml 07/02/18 10:00 07/04/18 10:24 Sodium Chloride Flush Syringe 10 Ml IV 10 ml BID MIRTHA Administration Sodium Chloride 10 ml 07/02/18 02:39 Sodium Chloride Flush Syringe 10 Ml IV PRN PRN LINE FLUSH Warfarin Sodium 7.5 mg 07/03/18 17:00 07/03/18 17:45 Coumadin PO 7.5 mg DAILY@1700 MIRTHA Administration Nutrition/Malnutrition Assess - Dietary Evaluation Nutrition/Malnutrition Findings: Nutrition Notes Start: 07/02/18 13:21 Freq: Status: Active Protocol: Document 07/02/18 13:22 CP (Rec: 07/02/18 13:45 CP [id number]) Co-Sign 07/02/18 13:22 LP Nutrition Notes Need for Assessment generated from: MD Order,Education Initial or Follow up Assessment Current Diagnosis Acute Kidney Injury,Diabetes, Sepsis Other Pertinent Diagnosis Pneumonia, UTI, depression, leukocytes, hypothythroidism Current Diet Mechanical Soft Labs/Tests Reviewed Pertinent Medications Reviewed Height 5 ft 8 in Weight 92.986 kg [place] Body Weight (kg) 63.63 BMI 31.1 Intake Prior to Admission Good Weight change and time frame Pt stated that she did not have weight loss/gain. Weight Status Obese Subjective/Other Information MD consult for diet education. Pt stated that her appetite is low and consumed 0% of her meals. Pt was open to Glucerna and reported no N/V/D/C. Pt responsive to diet education. Percent of energy/protein needs met: 0%./0% Burn Absent Trauma Absent #1 Nutrition Diagnosis Inadequate oral intake Etiology Low appetite As Evidenced by Signs and Symptoms Pt consuming 0% of her meals Is patient on ventilator? No Is Patient Ambulatory and/or Out of Bed No REE-([facility]-confined to bed) 1991.564 Kcal/Kg value to use for calculation 17 Approximate Energy Requirements Using 1581 kcal/Kg Calculation Used for Recommendations Kcal/kg Additional Notes Pro: (1-1.3g/kg) 93-121 g/day Fluid: 1mL/kcal or per MD request Nutrition Intervention Change Diet Order: Continue current or per MD request Add Supplement/Snack (indicate name/kcal Glucerna daily (chocolate) /protein ) Provides kCal: 220 Provides Protein (gm) 10 Teaching Recipient Patient Learning Readiness Good Teaching Methods Discussion,Handout Response to Teaching Verbalize understanding Education Handouts Provided Consistent carbohydrate Barriers to Learning No Barriers RD phone number provided No Patient aware of follow up options No Goal #1 Adherence to diet education Goal #2 PO and ONS intake to meet at least 75% of energy and protein needs Follow-Up By: 07/06/18 Additional Comments F/U: PO and ONS intakes
[2018-07-04] MEDS ORDERED: HumaLOG SUB-Q SCH (12:30)
[2018-07-04] MEDS ORDERED: NACL IV SCH (13:00)
--- NOTE | 2018-07-04 13:39 | Consultation ---
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 Cough is with yellowish sputum production. Mother noted she was lethargic. She was nauseated and vomited x 1. She attends a day program. Mother denies sick contacts. In the ED, temp 102.5, HR 134, R 20, BP 133/81, R 20. WBC 14.8. Hg 1.2. Plat 169. Creat 1.6. AST 67. UA trace LE 10 wbc. HIV neg. GAS neg. Rapid influena neg. CXR negative. Chest CT no infiltrates. Blood cultures 07/01/2018 no growth today. Review of Systems: General: + fever, chills, nightsweats, +falls Cutaneous: no rash, pruritus Head: no headaches or injury Eyes: no changes in vision, eye pain, double vision Ears: no ear pain, ear discharge, ringing or hearing loss Nose: no nose bleeding, stuffiness Mouth & throat: no bleeding gums, no horseness, no dental problems, or swollen glands Neck: no pain, node enlargement/lumps, tyroid enlargement or tenderness Respiratory: +cough, no wheezing, + sputum, no hemoptysis, pleuritic chest pain Cardiovascular: no chest pain, leg edema, cyanosis, BROOKS, orthopnea Musculoskeletal: no decreased joint motion, bone or joint pain, joint swelling, muscle aches Gastrointestinal: no nausea, vomiting, hematemesis, diarrhea, constipation, melena, bright red blood in stools, fecal incontinence, jaundice Genitourinary/Reproductive: no frequent urination, dysuria, hematuria, incontinence Neurogical: +lethargy, no seizures, no headaches, no weakness, no paresthesias, no loss of speech or vision; no memory loss, no vertigo, no tremors, no numbness Psychiatric: stable mood; no excessive anxiety, sadness or moodiness Past History Past Medical History: diabetes, hypertension, hyperlipidemia, hypothyroidism, renal failure Past Surgical History: No surgical history Social history: no significant social history, lives with family Past History Past Medical History: diabetes, hypertension, hyperlipidemia, hypothyroidism, renal failure Past Surgical History: No surgical history Social history: no significant social history, lives with family Medications and Allergies Allergies Allergy/AdvReac Type Severity Reaction Status Date / Time No Known Allergies Allergy Verified 05/07/16 09:44 Home Medications Medication Instructions Recorded Confirmed Last Taken Type Aspirin [Aspirin TAB] 325 mg PO DAILY 09/20/13 02/20/15 01/08/15 History DESMOPRESSIN 0.01%(nf) [Ddavp(Nf)] 2 spray INNOSTRIL DAILY 09/20/13 02/20/15 01/08/15 History Gabapentin 100 mg PO TID 09/20/13 02/20/15 01/08/15 History Glimepiride 1 mg PO DAILY 09/20/13 02/20/15 01/08/15 History Hydrocortisone 20 mg PO DAILY 09/20/13 02/20/15 01/08/15 History Levothyroxine [Synthroid] 112 mcg PO DAILY 09/20/13 02/20/15 01/08/15 History Simvastatin (Nf) [Zocor TAB] 40 mg PO QHS 09/20/13 02/20/15 01/07/15 History Warfarin [Coumadin] 10 mg PO DAILY@1700 14 Days tablet 12/04/14 02/20/15 01/08/15 Rx Amlodipine Besylate [Norvasc] 2.5 mg PO DAILY 30 Days tab 01/09/15 02/20/15 Unknown Rx HYDROcodone/APAP 10-325 [[place] 1 each PO Q8HR PRN #20 tablet 01/09/15 02/20/15 Unknown Rx 10/325] PARoxetine [Paxil] 10 mg PO TID #90 tablet 04/16/15 Unknown Rx traMADol [Ultram] 50 mg PO Q4HR PRN #20 tablet 04/16/15 Unknown Rx HYDROcodone/APAP 5-325 [[place] 1 each PO Q6HR PRN #15 tablet 07/31/15 Unknown Rx 5-325 mg TAB] Ibuprofen [Motrin 800 MG tab] 800 mg PO Q8HR PRN #30 tablet 11/14/15 Unknown Rx Sulfamethoxazole/Trimethoprim 1 each PO BID #14 tablet 12/27/15 Unknown Rx [Bactrim DS TAB] Butalb/Acetamin/Caff 50-325-40 1 tab PO Q8HR PRN #20 tablet 05/07/16 Unknown Rx [Fioricet] Active Meds: Active Medications Acetaminophen (Tylenol) 650 mg PO Q4H PRN PRN Reason: Pain MILD(1-3)/Fever >100.5/GARCIA Acetaminophen/Butalbital/Caffeine (Fioricet) 1 tab PO Q8HR PRN PRN Reason: Headache Albuterol/Ipratropium (Duoneb *Not For Prn Use*) 1 ampul IH Q6HRT [facility] Last Admin: 07/04/18 08:47 Dose: 1 ampul Documented by: Dextrose (D50w (25gm) Syringe) 50 ml IV PRN PRN PRN Reason: Hypoglycemia Enoxaparin Sodium (Lovenox) 100 mg SUB-Q Q12HR [facility] Last Admin: 07/04/18 10:18 Dose: 100 mg Documented by: Gabapentin (Neurontin) 100 mg PO TID [facility] Last Admin: 07/04/18 10:19 Dose: 100 mg Documented by: Cefepime HCl (Maxipime/Ns 2 Gm/100 Ml) 2 gm in 100 mls @ 200 mls/hr IV Q12HR [facility]; Protocol Last Admin: 07/04/18 10:34 Dose: 200 mls/hr Documented by: Vancomycin HCl 1,250 mg/ (Sodium Chloride) 275 mls @ 166.667 mls/hr IV Q24H [facility] Last Admin: 07/03/18 22:01 Dose: 166.667 mls/hr Documented by: Sodium Chloride 38.48 meq/ (Sterile Water) 1,009.62 mls @ 50 mls/hr IV DIRECT [facility] Insulin Glargine (Lantus) 20 units SUB-Q BID [facility] Insulin Human Lispro (Humalog) 0 unit SUB-Q ACHS [facility]; Protocol Last Admin: 07/04/18 13:08 Dose: 8 unit Documented by: Insulin Human Lispro (Humalog) 5 unit SUB-Q AC [facility] Levothyroxine Sodium (Synthroid) 75 mcg PO DAILY@0600 [facility] Lisinopril (Zestril) 5 mg PO QDAY [facility] Last Admin: 07/04/18 10:20 Dose: Not Given Documented by: Miscellaneous Medication (Desmopressin 0.01%) 2 spray InNostril DAILY [facility] Last Admin: 07/04/18 10:18 Dose: Not Given Documented by: Ondansetron HCl (Zofran) 4 mg IV Q8H PRN PRN Reason: Nausea And Vomiting Paroxetine HCl (Paxil) 20 mg PO QDAY [facility] Last Admin: 07/04/18 10:19 Dose: 20 mg Documented by: Potassium Phos/Sodium Phos (Phos-Nak) 1 each PO Q8HR [facility] Pravastatin Sodium (Pravachol) 80 mg PO QHS [facility] Last Admin: 07/03/18 21:40 Dose: 80 mg Documented by: Sodium Chloride (Sodium Chloride Flush Syringe 10 Ml) 10 ml IV BID [facility] Last Admin: 07/04/18 10:24 Dose: 10 ml Documented by: Sodium Chloride (Sodium Chloride Flush Syringe 10 Ml) 10 ml IV PRN PRN PRN Reason: LINE FLUSH Warfarin Sodium (Coumadin) 5 mg PO DAILY@1700 [facility] Exam - Vital Signs Vital signs: Vital Signs Temp Pulse BP 98.4 F 127 H 133/81 07/01/18 19:56 07/01/18 19:56 07/01/18 19:56 - Physical Exam Narrative exam: General appearance: Alert in NAD, conversant Eyes: anicteric sclerae, moist conjunctivae; no lid-lag; PERRLA HENT: Atraumatic; oropharynx clear with moist mucous membranes and no mucosal ulcerations/no oral thrush; normal hard and soft palate. Normal external ears. Neck: Trachea midline; supple, no thyromegaly or lymphadenopathy Lungs: CTA, with normal respiratory effort and no intercostal retractions CV: tachycardic Abdomen: Soft, non-tender; no masses or hepatosplenomegaly Extremities: No peripheral edema or extremity lymphadenopathy Skin: Normal temperature, turgor and texture; no rash, ulcers or subcutaneous nodules Psych: Appropriate affect, alert and oriented to person, place and time. Neuro: alert and oriented x 3. Moving all extermities Results - Lab Results 07/04/18 08:45 07/04/18 08:45 Most recent lab results Calcium 9.2 mg/dL (8.4-10.2) 07/04/18 08:45 Phosphorus 2.20 mg/dL (2.5-4.5) L 07/04/18 08:45 Magnesium 2.10 mg/dL (1.7-2.3) 07/04/18 08:45 Assessment and Plan Impression: * DILIP on CKD, has had CKD stage 2-3 previously * SIRS * UTI * Hypertension * history of DVT * ?hypopituitary syndrome * type 2 DM with persistent hyperglycemia * chronic RLE edema from previous DVT in 2014, off coumadin x 6 months * hypernatremia * tachycardia, persistent Plan: * iv abx for uti * gentle ivfs, add 03/19 NS * on desmopressin--follow up urine lytes * NA partly due to pseudohypernatremia with elevated glucose levels * strict i/os * avoid nephrotoxins * follow up urine cultures * daily lytes * no indication for CHIEF WHEELAGE CLERK today
[2018-07-04] MEDS: LANTUS SUB-Q SCH ×2 (14:04→23:55)
[2018-07-04] MEDS: PHOS-NAK PO SCH ×2 (14:10→23:03)
[2018-07-04] MEDS: NACL IV SCH (14:17)
[2018-07-04] MEDS: STERILE WATER IV SCH (14:17)
--- NOTE | 2018-07-04 15:47 | Consultation ---
History of Present Illness Consult date: 07/04/18 History of present illness: PULMONARY AND CRITICAL CARE CONSULTATION THANK YOU FOR ASKING US TO PARTICIPATE IN THE CARE OF THIS PATIENT. 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 Patient states that the cough started yesterday and today she was having yellowish sputum production, pt reports sore throat and pain with swallowing, she also reports fever she decided to come to the ER for evaluation. Pt also reports 3 episodes of fall due to her right sided weakness and dizziness today. In the ER pt's have a temperature of 102.5, laboratory values showed an elevated WBC 14.8 and positive UA, her influenza A & B was negative. While in the ER, patient developed hypotension, a central line was inserted and she was giving several liters of fluid boluses with some improvement on the blood pressure. Patient reports cough with yellow sputum production, sore throat, dizziness, falls, denies chest pain, denies recent traveling, denies ill contacts, denies history of recent infection or pneumonia, she was started on antibiotics Patient awake and resting on room air. No complaints of CP, SOB or cough at this time. O2 saturation on room air 96%. Patient is afebrile and has a leukocytosis. Past History Past Medical History: diabetes, hypertension, hyperlipidemia, hypothyroidism, renal failure Past Surgical History: No surgical history Social history: no significant social history, lives with family Medications and Allergies Allergies Allergy/AdvReac Type Severity Reaction Status Date / Time No Known Allergies Allergy Verified 05/07/16 09:44 Home Medications Medication Instructions Recorded Confirmed Last Taken Type Aspirin [Aspirin TAB] 325 mg PO DAILY 09/20/13 02/20/15 01/08/15 History DESMOPRESSIN 0.01%(nf) [Ddavp(Nf)] 2 spray INNOSTRIL DAILY 09/20/13 02/20/15 01/08/15 History Gabapentin 100 mg PO TID 09/20/13 02/20/15 01/08/15 History Glimepiride 1 mg PO DAILY 09/20/13 02/20/15 01/08/15 History Hydrocortisone 20 mg PO DAILY 09/20/13 02/20/15 01/08/15 History Levothyroxine [Synthroid] 112 mcg PO DAILY 09/20/13 02/20/15 01/08/15 History Simvastatin (Nf) [Zocor TAB] 40 mg PO QHS 09/20/13 02/20/15 01/07/15 History Warfarin [Coumadin] 10 mg PO DAILY@1700 14 Days tablet 12/04/14 02/20/15 01/08/15 Rx Amlodipine Besylate [Norvasc] 2.5 mg PO DAILY 30 Days tab 01/09/15 02/20/15 Unknown Rx HYDROcodone/APAP 10-325 [[place] 1 each PO Q8HR PRN #20 tablet 01/09/15 02/20/15 Unknown Rx 10/325] PARoxetine [Paxil] 10 mg PO TID #90 tablet 04/16/15 Unknown Rx traMADol [Ultram] 50 mg PO Q4HR PRN #20 tablet 04/16/15 Unknown Rx HYDROcodone/APAP 5-325 [[place] 1 each PO Q6HR PRN #15 tablet 07/31/15 Unknown Rx 5-325 mg TAB] Ibuprofen [Motrin 800 MG tab] 800 mg PO Q8HR PRN #30 tablet 11/14/15 Unknown Rx Sulfamethoxazole/Trimethoprim 1 each PO BID #14 tablet 12/27/15 Unknown Rx [Bactrim DS TAB] Butalb/Acetamin/Caff 50-325-40 1 tab PO Q8HR PRN #20 tablet 05/07/16 Unknown Rx [Fioricet] Active Meds: Active Medications Acetaminophen (Tylenol) 650 mg PO Q4H PRN PRN Reason: Pain MILD(1-3)/Fever >100.5/GARCIA Acetaminophen/Butalbital/Caffeine (Fioricet) 1 tab PO Q8HR PRN PRN Reason: Headache Albuterol/Ipratropium (Duoneb *Not For Prn Use*) 1 ampul IH Q6HRT [facility] Last Admin: 07/04/18 13:50 Dose: 1 ampul Documented by: Dextrose (D50w (25gm) Syringe) 50 ml IV PRN PRN PRN Reason: Hypoglycemia Enoxaparin Sodium (Lovenox) 100 mg SUB-Q Q12HR [facility] Last Admin: 07/04/18 10:18 Dose: 100 mg Documented by: Gabapentin (Neurontin) 100 mg PO TID [facility] Last Admin: 07/04/18 14:10 Dose: 100 mg Documented by: Cefepime HCl (Maxipime/Ns 2 Gm/100 Ml) 2 gm in 100 mls @ 200 mls/hr IV Q12HR [facility]; Protocol Last Admin: 07/04/18 10:34 Dose: 200 mls/hr Documented by: Vancomycin HCl 1,250 mg/ (Sodium Chloride) 275 mls @ 166.667 mls/hr IV Q24H [facility] Last Admin: 07/03/18 22:01 Dose: 166.667 mls/hr Documented by: Sodium Chloride 38.48 meq/ (Sterile Water) 1,009.62 mls @ 125 mls/hr IV DIRECT [facility] Last Admin: 07/04/18 14:17 Dose: 125 mls/hr Documented by: Insulin Glargine (Lantus) 20 units SUB-Q BID [facility] Last Admin: 07/04/18 14:04 Dose: 20 units Documented by: Insulin Human Lispro (Humalog) 0 unit SUB-Q ACHS [facility]; Protocol Last Admin: 07/04/18 13:08 Dose: 8 unit Documented by: Insulin Human Lispro (Humalog) 10 unit SUB-Q AC [facility] Levothyroxine Sodium (Synthroid) 75 mcg PO DAILY@0600 [facility] Lisinopril (Zestril) 5 mg PO QDAY [facility] Last Admin: 07/04/18 10:20 Dose: Not Given Documented by: Miscellaneous Medication (Desmopressin 0.01%) 2 spray InNostril DAILY [facility] Last Admin: 07/04/18 10:18 Dose: Not Given Documented by: Ondansetron HCl (Zofran) 4 mg IV Q8H PRN PRN Reason: Nausea And Vomiting Paroxetine HCl (Paxil) 20 mg PO QDAY [facility] Last Admin: 07/04/18 10:19 Dose: 20 mg Documented by: Potassium Phos/Sodium Phos (Phos-Nak) 1 each PO Q8HR [facility] Last Admin: 07/04/18 14:10 Dose: 1 each Documented by: Pravastatin Sodium (Pravachol) 80 mg PO QHS [facility] Last Admin: 07/03/18 21:40 Dose: 80 mg Documented by: Sodium Chloride (Sodium Chloride Flush Syringe 10 Ml) 10 ml IV BID [facility] Last Admin: 07/04/18 10:24 Dose: 10 ml Documented by: Sodium Chloride (Sodium Chloride Flush Syringe 10 Ml) 10 ml IV PRN PRN PRN Reason: LINE FLUSH Warfarin Sodium (Coumadin) 5 mg PO DAILY@1700 [facility] Review of Systems All systems: negative Physical Examination Vital signs: Vital Signs Temp Pulse BP 98.4 F 127 H 133/81 07/01/18 19:56 07/01/18 19:56 07/01/18 19:56 General appearance: no acute distress, alert, other (somewhat slowed mentation) Eyes: non-icteric ENT: oropharynx moist Neck: supple, no lymphadenopathy Ascultation: Bilateral: rhonchi Cardiovascular: regular rate and rhythm Gastrointestinal: normoactive bowel sounds Integumentary: normal Extremities: no cyanosis, no edema Musculoskeletal: no deformities non-focal exam, pupils equal and round, CN II-XII normal other (mentation is slowed) Results - Laboratory Findings CBC and BMP: 07/05/18 06:26 07/05/18 06:26 PT/INR, D-dimer PT 27.8 Sec. (12.2-14.9) H 07/04/18 08:45 INR 2.40 (0.87-1.13) H 07/04/18 08:45 Abnormal lab findings: Abnormal Labs 07/01/18 07/01/18 07/01/18 20:16 20:16 20:26 WBC 14.8 H RBC 5.80 H Hgb 15.2 H Hct 47.2 H MCH 26 L RDW 15.3 H Seg Neutrophils % 80.3 H Seg Neutrophils # 11.9 H PT INR APTT 51.3 H Sodium Chloride BUN 22 H Creatinine 1.6 H Glucose 63 L POC Glucose Hemoglobin A1c Lactic Acid Calcium Phosphorus AST 67 H Total Protein 9.1 H TSH Free T4 Urine WBC (Auto) 07/01/18 07/01/18 07/02/18 22:41 23:14 00:15 WBC RBC Hgb Hct MCH RDW Seg Neutrophils % Seg Neutrophils # PT INR APTT Sodium Chloride BUN Creatinine Glucose POC Glucose 57 L Hemoglobin A1c Lactic Acid 0.60 L Calcium Phosphorus AST Total Protein TSH Free T4 Urine WBC (Auto) 10.0 H 07/02/18 07/02/18 07/02/18 05:31 11:16 13:19 WBC RBC Hgb Hct MCH RDW Seg Neutrophils % Seg Neutrophils # PT 16.5 H INR 1.25 H APTT Sodium Chloride BUN Creatinine Glucose POC Glucose 65 L 203 H Hemoglobin A1c Lactic Acid Calcium Phosphorus AST Total Protein TSH Free T4 Urine WBC (Auto) 07/02/18 07/02/18 07/02/18 13:19 13:19 13:19 WBC RBC Hgb Hct MCH RDW Seg Neutrophils % Seg Neutrophils # PT INR APTT Sodium Chloride BUN Creatinine Glucose POC Glucose Hemoglobin A1c Lactic Acid Calcium Phosphorus AST Total Protein TSH 0.013 L 0.013 L Free T4 1.52 H 1.51 H Urine WBC (Auto) 07/02/18 07/02/18 07/02/18 13:19 15:21 17:11 WBC RBC Hgb Hct MCH RDW Seg Neutrophils % Seg Neutrophils # PT INR APTT Sodium Chloride BUN Creatinine Glucose POC Glucose 336 H 351 H Hemoglobin A1c 7.8 H Lactic Acid Calcium Phosphorus AST Total Protein TSH Free T4 Urine WBC (Auto) 07/02/18 07/03/18 07/03/18 21:05 07:50 07:50 WBC RBC Hgb Hct MCH RDW Seg Neutrophils % Seg Neutrophils # PT 22.7 H INR 1.86 H APTT Sodium Chloride 109.0 H BUN Creatinine 1.4 H Glucose 316 H POC Glucose 342 H Hemoglobin A1c Lactic Acid Calcium 8.3 L D Phosphorus AST Total Protein TSH Free T4 Urine WBC (Auto) 07/03/18 07/03/18 07/04/18 14:05 17:43 00:21 WBC RBC Hgb Hct MCH RDW Seg Neutrophils % Seg Neutrophils # PT INR APTT Sodium Chloride BUN Creatinine Glucose POC Glucose 364 H 404 H 436 H Hemoglobin A1c Lactic Acid Calcium Phosphorus AST Total Protein TSH Free T4 Urine WBC (Auto) 07/04/18 07/04/18 07/04/18 07:58 08:45 08:45 WBC RBC Hgb Hct MCH RDW Seg Neutrophils % Seg Neutrophils # PT 27.8 H INR 2.40 H APTT Sodium 151 H Chloride 115.9 H BUN 23 H Creatinine 1.3 H Glucose 361 H POC Glucose 340 H Hemoglobin A1c Lactic Acid Calcium Phosphorus 2.20 L AST Total Protein TSH Free T4 Urine WBC (Auto) 07/04/18 12:08 WBC RBC Hgb Hct MCH RDW Seg Neutrophils % Seg Neutrophils # PT INR APTT Sodium Chloride BUN Creatinine Glucose POC Glucose 429 H Hemoglobin A1c Lactic Acid Calcium Phosphorus AST Total Protein TSH Free T4 Urine WBC (Auto) - Diagnostic Findings Chest x-ray: report reviewed (NO ACUTE CARDIOPULMONARY PROCESS.), image reviewed Assessment and Plan Patient is a 37-year-old female with past medical history of hypertension, CVA with RT sided weakness, 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 Patient states that the cough started yesterday and today she was having yellowish sputum production, pt reports sore throat and pain with swallowing, she also reports fever she decided to come to the ER for evaluation. Pt also reports 3 episodes of fall due to her right sided weakness and dizziness today. In the ER pt's have a temperature of 102.5, laboratory values showed an elevated WBC 14.8 and positive UA, her influenza A & B was negative. While in the ER, patient developed hypotension, a central line was inserted and she was giving several liters of fluid boluses with some improvement on the blood pressure. Patient reports cough with yellow sputum production, sore throat, dizziness, falls, den ies chest pain, denies recent traveling, denies ill contacts, denies history of recent infection or pneumonia, she was started on antibiotics Patient awake and resting on room air. No complaints of CP, SOB or cough at this time. O2 saturation on room air 96%. Patient is afebrile and has a leukocyto sis. - Patient Problems (1) Sepsis Current Visit: Yes Status: Acute Qualifiers: Sepsis type: sepsis due to unspecified organism Qualified Code(s): A41.9 - Sepsis, unspecified organism Plan to address problem: Patient is on Cefepime and Vancomycin (2) UTI (urinary tract infection) Current Visit: Yes Status: Acute Qualifiers: Urinary tract infection type: acute cystitis Hematuria presence: without hematuria Qualified Code(s): N30.00 - Acute cystitis without hematuria Plan to address problem: Patient is on Cefepime and Vancomycin (3) Deep venous thrombosis of right popliteal vein Current Visit: No Status: Acute Plan to address problem: INR 2.4 (4) CVA (cerebral vascular accident) Current Visit: No Status: Chronic Plan to address problem: [place] as per neurology
[2018-07-04] MEDS ORDERED: COUMADIN PO SCH (17:00)
[2018-07-04] MEDS: PRAVACHOL PO SCH (23:03)
[2018-07-04] MEDS: VANCOMYCIN 1,250 MG in NACL 0.9% 250ML 250 ML IV SCH (23:55)
[2018-07-05] MEDS: DUONEB *Not for PRN Use IH SCH ×4 (02:55→19:53)
[2018-07-05] MEDS: STERILE WATER IV SCH (05:46)
[2018-07-05] MEDS: SYNTHROID PO SCH (05:46)
[2018-07-05] MEDS: PHOS-NAK PO SCH ×3 (05:46→22:21)
[2018-07-05] MEDS: NACL IV SCH (05:46)
[2018-07-05 06:45] LABS: Basophils % (Auto) 0.1 % (0.0-1.8); Hematocrit 34.5 % (30.3-42.9); Hemoglobin 10.9 gm/dl (10.1-14.3); Lymphocytes # (Auto) 1.8 K/mm3 (1.2-5.4); Mean Corpuscular HGB Conc 31 % (30-34); Mean Corpuscular Volume 81 fl (79-97); Monocytes # (Auto) 0.8 K/mm3 (0.0-0.8); Monocytes % (Auto) 5.6 % (0.0-7.3); Platelet Count 117 K/mm3 (140-440); Red Blood Count 4.24 M/mm3 (3.65-5.03); Red Cell Distribution Width 16.6 % (13.2-15.2)
[2018-07-05 06:52] LABS: INR 3.36 (0.87-1.13)
[2018-07-05 07:07] LABS: Calcium 9.1 mg/dL (8.4-10.2)
[2018-07-05] MEDS: D50W (25GM) Syringe IV PRN (08:19)
[2018-07-05] MEDS: HumaLOG SUB-Q SCH ×7 (08:49→22:21)
[2018-07-05] MEDS ORDERED: D5W IV SCH (09:00)
[2018-07-05] MEDS: PAXIL PO SCH (09:43)
[2018-07-05] MEDS: D5W 1,000 ML IV SCH ×2 (09:43→18:44)
[2018-07-05] MEDS: NEURONTIN PO SCH ×3 (09:43→20:46)
[2018-07-05] MEDS: ZESTRIL PO SCH (09:44)
[2018-07-05] MEDS: LANTUS SUB-Q SCH ×2 (09:44→22:21)
[2018-07-05] MEDS: SODIUM CHLORIDE FLUSH SYRINGE 10 ML IV SCH ×2 (09:44→22:40)
[2018-07-05] MEDS: DESMOPRESSIN 0.01% InNostril SCH (09:44)
[2018-07-05] MEDS: MAXIPIME/NS 2 GM/100 ML 2 GM/100 ML BAG IV SCH ×2 (09:44→22:23)
--- NOTE | 2018-07-05 10:32 | Progress Note ---
Assessment and Plan - Patient Problems (1) Acute hypernatremia Current Visit: Yes Status: Acute Plan to address problem: Acute hypernatremia secondary to missed DDAVP Has not received nasal sprays of desmopressin nonformulary ordered on admission We'll switch to desmopressin 0.1 mg by mouth twice a day which is available in the hospital We'll give D5 water for now until hypernatremia improves Recheck sodium levels (2) Pneumonia Current Visit: Yes Status: Acute Qualifiers: Pneumonia type: due to unspecified organism Laterality: right Lung location: lower lobe of lung Qualified Code(s): J18.1 - Lobar pneumonia, unspecified organism Plan to address problem: Pneumoniaon antibiotics Pulmonary following (3) DILIP (acute kidney injury) Current Visit: Yes Status: Acute Plan to address problem: Acute kidney injury 2/2 recent sepsis,hypotension Baseline creatinine 1.2 Current creatinine 1.5 mg/DL Stop lisinopril Intravenous fluids above (4) Hypertension Current Visit: Yes Status: Acute Plan to address problem: Hypertension:uncontrolled Stop lisinopril given acute kidney injury We'll change to amlodipine 2.5 mg daily Subjective Interval history: 37 -year-old lady with medical history significant for brain germinosa tumor , CVA, 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 nephrology consulted for acute kidney injury Patient seen today has not been getting desmopressin nasal spray as this has not been available and has developed significant hypernatraemia Denies any was no shortness of breath denies any PND denies any lower extremity edema Objective - Vital Signs Vital signs: Vital Signs - 12hr 07/05/18 07/05/18 07/05/18 00:00 01:05 03:47 Temperature 99.1 F Pulse Rate 85 87 86 Pulse Rate [ Bilateral Throughout] Respiratory 22 Rate Respiratory Rate [Bilateral Throughout] Blood Pressure 137/72 O2 Sat by Pulse 91 96 Oximetry 07/05/18 07/05/18 07/05/18 03:48 05:28 07:30 Temperature 98.5 F 98.3 F Pulse Rate 75 Pulse Rate [ Bilateral Throughout] Respiratory 20 18 Rate Respiratory Rate [Bilateral Throughout] Blood Pressure 127/78 149/85 O2 Sat by Pulse Oximetry 07/05/18 07/05/18 07/05/18 08:20 08:30 09:08 Temperature Pulse Rate Pulse Rate [ 75 77 Bilateral Throughout] Respiratory Rate Respiratory 18 18 Rate [Bilateral Throughout] Blood Pressure O2 Sat by Pulse 96 Oximetry - General Appearance General appearance: obese EENT: ATNC, PERRL Neck: no JVD Respiratory: Present: Clear to Ascultation Cardiology: regular, S1S2 Gastrointestinal: normal, normoactive bowel sounds Integumentary: no rash Neurologic: alert and oriented x3 Musculoskeletal: deferred Psychiatric: mood/affect appropriate - Lab 07/05/18 06:26 07/05/18 06:26 Most recent lab results Calcium 9.1 mg/dL (8.4-10.2) 07/05/18 06:26 Phosphorus 2.20 mg/dL (2.5-4.5) L 07/04/18 08:45 Magnesium 2.10 mg/dL (1.7-2.3) 07/04/18 08:45 - Imaging Chest x-ray: image reviewed Medications & Allergies - Medications Allergies/Adverse Reactions: Allergies No Known Allergies Allergy (Verified 05/07/16 09:44) Home Medications: Home Medications Medication Instructions Recorded Confirmed Last Taken Type Aspirin [Aspirin TAB] 325 mg PO DAILY 09/20/13 02/20/15 01/08/15 History DESMOPRESSIN 0.01%(nf) [Ddavp(Nf)] 2 spray INNOSTRIL DAILY 09/20/13 02/20/15 01/08/15 History Gabapentin 100 mg PO TID 09/20/13 02/20/15 01/08/15 History Glimepiride 1 mg PO DAILY 09/20/13 02/20/15 01/08/15 History Hydrocortisone 20 mg PO DAILY 09/20/13 02/20/15 01/08/15 History Levothyroxine [Synthroid] 112 mcg PO DAILY 09/20/13 02/20/15 01/08/15 History Simvastatin (Nf) [Zocor TAB] 40 mg PO QHS 09/20/13 02/20/15 01/07/15 History Warfarin [Coumadin] 10 mg PO DAILY@1700 14 Days tablet 12/04/14 02/20/15 01/08/15 Rx Amlodipine Besylate [Norvasc] 2.5 mg PO DAILY 30 Days tab 01/09/15 02/20/15 Unknown Rx HYDROcodone/APAP 10-325 [[place] 1 each PO Q8HR PRN #20 tablet 01/09/15 02/20/15 Unknown Rx 10/325] PARoxetine [Paxil] 10 mg PO TID #90 tablet 04/16/15 Unknown Rx traMADol [Ultram] 50 mg PO Q4HR PRN #20 tablet 04/16/15 Unknown Rx HYDROcodone/APAP 5-325 [[place] 1 each PO Q6HR PRN #15 tablet 07/31/15 Unknown Rx 5-325 mg TAB] Ibuprofen [Motrin 800 MG tab] 800 mg PO Q8HR PRN #30 tablet 11/14/15 Unknown Rx Sulfamethoxazole/Trimethoprim 1 each PO BID #14 tablet 12/27/15 Unknown Rx [Bactrim DS TAB] Butalb/Acetamin/Caff 50-325-40 1 tab PO Q8HR PRN #20 tablet 05/07/16 Unknown Rx [Fioricet] Active Medications: Generic Name Dose Route Start Last Admin Trade Name Freq PRN Reason Stop Dose Admin Acetaminophen 650 mg 07/02/18 02:39 Tylenol PO Q4H PRN Pain MILD(1-3)/Fever >100.5/GARCIA Acetaminophen/Butalbital/Caffeine 1 tab 07/02/18 11:54 Fioricet PO Q8HR PRN Headache Albuterol/Ipratropium 1 ampul 07/02/18 08:00 07/05/18 08:04 Duoneb *Not For Prn Use* IH 1 ampul Q6HRT [facility]A Administration Desmopressin Acetate 0.1 mg 07/05/18 11:00 Ddavp PO BID [facility]IR[facility]A Dextrose 50 ml 07/02/18 02:39 07/05/18 08:19 D50w (25gm) Syringe IV 50 ml PRN PRN Administration Hypoglycemia Gabapentin 100 mg 07/02/18 14:00 07/05/18 09:43 Neurontin PO 100 mg TID [facility]A Administration Cefepime HCl 2 gm in 100 mls @ 200 mls/hr 07/02/18 22:00 07/05/18 09:44 Maxipime/Ns 2 Gm/100 Ml IV 200 mls/hr Q12HR [facility] Administration Protocol Vancomycin HCl 1,250 mg/ 275 mls @ 166.667 mls/hr 07/03/18 23:00 07/04/18 23:55 Sodium Chloride IV 166.667 mls/hr Q24H [facility] Administration Dextrose 1,000 mls @ 125 mls/hr 07/05/18 10:30 07/05/18 09:43 D5w IV 125 mls/hr DIRECT [facility] Administration Dextrose 400 mls @ 0 mls/hr 07/05/18 09:00 07/05/18 09:42 D5w IV 07/05/18 12:00 999 mls/hr DIRECT [facility] Administration Wide Open Insulin Glargine 20 units 07/04/18 12:00 07/05/18 09:44 Lantus SUB-Q 20 units BID [facility] Administration Insulin Human Lispro 0 unit 07/02/18 16:30 07/05/18 08:49 Humalog SUB-Q Not Given ACHS [facility] Protocol Insulin Human Lispro 10 unit 07/04/18 16:30 07/05/18 08:49 Humalog SUB-Q Not Given AC [facility] Levothyroxine Sodium 75 mcg 07/05/18 06:00 07/05/18 05:46 Synthroid PO 75 mcg DAILY@0600 [facility] Administration Lisinopril 5 mg 07/02/18 13:00 07/05/18 09:44 Zestril PO 5 mg QDAY [facility] Administration Miscellaneous Medication 2 spray 07/03/18 14:00 07/05/18 09:44 Desmopressin 0.01% InNostril Not Given DAILY [facility] Ondansetron HCl 4 mg 07/02/18 02:39 Zofran IV Q8H PRN Nausea And Vomiting Paroxetine HCl 20 mg 07/03/18 10:00 07/05/18 09:43 Paxil PO 20 mg QDAY [facility] Administration Potassium Phos/Sodium Phos 1 each 07/04/18 14:00 07/05/18 05:46 Phos-Nak PO 1 each Q8HR [facility] Administration Pravastatin Sodium 80 mg 07/02/18 22:00 07/04/18 23:03 Pravachol PO 80 mg QHS [facility] Administration Sodium Chloride 10 ml 07/02/18 10:00 07/05/18 09:44 Sodium Chloride Flush Syringe 10 Ml IV 10 ml BID [facility] Administration Sodium Chloride 10 ml 07/02/18 02:39 Sodium Chloride Flush Syringe 10 Ml IV PRN PRN LINE FLUSH
--- NOTE | 2018-07-05 11:24 | Progress Note ---
Assessment and Plan Assessment and plan: 37-year-old woman previous history of right lower extremity DVT in 2015, hypertension, neuropathy, diabetes and hypothyroidism, pituitary insufficiency, major depression, hyperlipidemia, chronic pain syndrome Dopplers show RLE chronic dvt Diagnoses SIRS, fever and tachycardia Productive Cough Hypertension history of DVT hypopituitary syndrome, history of brain cancer status post craniectomy and resection, causing chronic hypopituitarism type 2 DM with persistent hyperglycemia chronic RLE edema from previous DVT in 2015, off coumadin x 6 months DILIP on CKD, has had CKD stage 2-3 previously, vasomotor nephropathy hypophostatemia hypernatremia Sinus tachycardia, resolved Plan VQ scan low probability for PE, echo shows preserved EF, Dopplers show chronic right lower extremity DVT, unable to do CT angiogram due to renal failure, however highly suspect VTE, therefore she is anticoagulated Continue warfarin, goal INR is 2-3 -check LEXIE and autoimmune panel -cxr, CT chest and Rapid flu are neg, no source of infection presently identified HIV rapid was neg and HIV viral load to r/o HIV syndrome, denies recent unprotected sex Cough suppressants as needed Optimize blood pressure meds TSh suppressed, slightly elevated Ft4, synthroid dose reduced, cortisol levels pending, dc hydrocortisone,cont desmopressin per nephrology -optimize insulins -oral phos ordered, Downgraded to medical floor today, tentative discharged home tomorrow if continues to improve History Interval history: Tachycardia has now resolved Review of systems Constitutional: No more fevers, c/o malaise, no joint pains CVS: No chest pain, no orthopnea, no dyspnea on exertion, no pedal edema GI: No abdominal pain, no diarrhea, no vomiting, no constipation Respiratory: Cough, pleurisy or shortness of breath have now all resolved Hospitalist Physical - Physical exam Narrative exam: General.: Appears well, in no distress HEENT: Moist mucous membranes, extraocular muscles intact, no lymphadenopathy Neck: supple Cardiac: S1-S2 heard Lungs: Clear to auscultation Abdomen: soft , nontender, nondistended, bowel sounds positive Extremities: RLE edema Skin: no rash or lesions Neurologic: no gross focal deficits Psych: calm, and cooperative - Constitutional Vitals: Temp Pulse Resp BP Pulse Ox 98.3 F 77 18 149/85 96 07/05/18 07:30 07/05/18 08:30 07/05/18 08:30 07/05/18 07:30 07/05/18 09:08 General appearance: Present: no acute distress, mild distress Results - Labs CBC & Chem 7: 07/05/18 06:26 07/05/18 06:26 Labs: Laboratory Last Values WBC 14.8 K/mm3 (4.5-11.0) H 07/05/18 06:26 RBC 4.24 M/mm3 (3.65-5.03) 07/05/18 06:26 Hgb 10.9 gm/dl (10.1-14.3) 07/05/18 06:26 Hct 34.5 % (30.3-42.9) 07/05/18 06:26 MCV 81 fl (79-97) 07/05/18 06:26 MCH 26 pg (28-32) L 07/05/18 06:26 MCHC 31 % (30-34) 07/05/18 06:26 RDW 16.6 % (13.2-15.2) H 07/05/18 06:26 Plt Count 117 K/mm3 (140-440) L 07/05/18 06:26 Lymph % (Auto) 12.0 % (13.4-35.0) L 07/05/18 06:26 [place] % (Auto) 5.6 % (0.0-7.3) 07/05/18 06:26 Eos % (Auto) 0.0 % (0.0-4.3) 07/05/18 06:26 Baso % (Auto) 0.1 % (0.0-1.8) 07/05/18 06:26 Lymph # 1.8 K/mm3 (1.2-5.4) 07/05/18 06:26 [place] # 0.8 K/mm3 (0.0-0.8) 07/05/18 06:26 Eos # 0.0 K/mm3 (0.0-0.4) 07/05/18 06:26 Baso # 0.0 K/mm3 (0.0-0.1) 07/05/18 06:26 Seg Neutrophils % 82.3 % (40.0-70.0) H 07/05/18 06:26 Seg Neutrophils # 12.2 K/mm3 (1.8-7.7) H 07/05/18 06:26 PT 36.4 Sec. (12.2-14.9) H 07/05/18 06:26 INR 3.36 (0.87-1.13) H 07/05/18 06:26 APTT 51.3 Sec. (24.2-36.6) H 07/01/18 20:26 Sodium 158 mmol/L (137-145) H 07/05/18 06:26 Potassium 4.3 mmol/L (3.6-5.0) 07/05/18 06:26 Chloride 123.7 mmol/L (98-107) H 07/05/18 06:26 Carbon Dioxide 26 mmol/L (22-30) 07/05/18 06:26 Anion Gap 13 mmol/L 07/05/18 06:26 BUN 25 mg/dL (7-17) H 07/05/18 06:26 Creatinine 1.5 mg/dL (0.7-1.2) H 07/05/18 06:26 Estimated GFR 47 ml/min 07/05/18 06:26 BUN/Creatinine Ratio 17 % 07/05/18 06:26 Glucose 64 mg/dL (65-100) L 07/05/18 06:26 POC Glucose 230 (70-105) H 07/05/18 08:48 Hemoglobin A1c 7.8 % (4-6) H 07/02/18 13:19 Lactic Acid 0.60 mmol/L (0.7-2.0) L 07/01/18 22:41 Calcium 9.1 mg/dL (8.4-10.2) 07/05/18 06:26 Phosphorus 2.20 mg/dL (2.5-4.5) L 07/04/18 08:45 Magnesium 2.10 mg/dL (1.7-2.3) 07/04/18 08:45 Total Bilirubin 0.40 mg/dL (0.1-1.2) 07/01/18 20:16 AST 67 units/L (5-40) H 07/01/18 20:16 ALT 53 units/L (7-56) 07/01/18 20:16 Alkaline Phosphatase 124 units/L (35-129) 07/01/18 20:16 Total Protein 9.1 g/dL (6.3-8.2) H 07/01/18 20:16 Albumin 3.9 g/dL (3.9-5) 07/01/18 20:16 Albumin/Globulin Ratio 0.8 % 07/01/18 20:16 TSH 0.013 mlU/mL (0.270-4.200) L 07/02/18 13:19 Free T4 1.51 ng/dL (0.76-1.46) H 07/02/18 13:19 Thyroxine (T4) 8.2 ug/dL (4.0-12.0) 07/02/18 13:19 Urine Color Yellow (Yellow) 07/01/18 23:14 Urine Turbidity Slightly-cloudy (Clear) 07/01/18 23:14 Urine pH 5.0 (5.0-7.0) 07/01/18 23:14 Ur Specific [place] 1.006 (1.003-1.030) 07/01/18 23:14 Urine Protein <15 mg/dl mg/dL (Negative) 07/01/18 23:14 Urine Glucose (UA) Neg mg/dL (Negative) 07/01/18 23:14 Urine Ketones Neg mg/dL (Negative) 07/01/18 23:14 Urine Blood Neg (Negative) 07/01/18 23:14 Urine Nitrite Neg (Negative) 07/01/18 23:14 Urine Bilirubin Neg (Negative) 07/01/18 23:14 Urine Urobilinogen < 2.0 mg/dL (<2.0) 07/01/18 23:14 Ur Leukocyte Esterase Tr (Negative) 07/01/18 23:14 Urine WBC (Auto) 10.0 /HPF (0.0-6.0) H 07/01/18 23:14 Urine RBC (Auto) 3.0 /HPF (0.0-6.0) 07/01/18 23:14 U Epithel Cells (Auto) 1.0 /HPF (0-13.0) 07/01/18 23:14 Urine Mucus 1+ /HPF 07/01/18 23:14 HIV 1&2 Antibody Rapid Non react (Non React) 07/02/18 11:54 HIV P24 Antigen Non react (Non React) 07/02/18 11:54 Influenza A (Rapid) Negative (Negative) 07/01/18 22:51 Influenza B (Rapid) Negative (Negative) 07/01/18 22:51 Group A Strep Rapid Negative (Negative) 07/01/18 22:51 Active Medications - Current Medications Current Medications: Generic Name Dose Route Start Last Admin Trade Name Freq PRN Reason Stop Dose Admin Acetaminophen 650 mg 07/02/18 02:39 Tylenol PO Q4H PRN Pain MILD(1-3)/Fever >100.5/GARCIA Acetaminophen/Butalbital/Caffeine 1 tab 07/02/18 11:54 Fioricet PO Q8HR PRN Headache Albuterol/Ipratropium 1 ampul 07/02/18 08:00 07/05/18 08:04 Duoneb *Not For Prn Use* IH 1 ampul Q6HRT MIRTHA Administration Amlodipine Besylate 2.5 mg 07/06/18 10:00 Norvasc PO QDAY MIRTHA Desmopressin Acetate 0.1 mg 07/05/18 11:00 Ddavp PO BID MIRTHA Dextrose 50 ml 07/02/18 02:39 07/05/18 08:19 D50w (25gm) Syringe IV 50 ml PRN PRN Administration Hypoglycemia Gabapentin 100 mg 07/02/18 14:00 07/05/18 09:43 Neurontin PO 100 mg TID MIRTHA Administration Cefepime HCl 2 gm in 100 mls @ 200 mls/hr 07/02/18 22:00 07/05/18 09:44 Maxipime/Ns 2 Gm/100 Ml IV 200 mls/hr Q12HR MIRTHA Administration Protocol Vancomycin HCl 1,250 mg/ 275 mls @ 166.667 mls/hr 07/03/18 23:00 07/04/18 23:55 Sodium Chloride IV 166.667 mls/hr Q24H MIRTHA Administration Dextrose 1,000 mls @ 125 mls/hr 07/05/18 10:30 07/05/18 09:43 D5w IV 125 mls/hr DIRECT MIRTHA Administration Dextrose 400 mls @ 0 mls/hr 07/05/18 09:00 07/05/18 09:42 D5w IV 07/05/18 12:00 999 mls/hr DIRECT MIRTHA Administration Wide Open Insulin Glargine 20 units 07/04/18 12:00 07/05/18 09:44 Lantus SUB-Q 20 units BID MIRTHA Administration Insulin Human Lispro 0 unit 07/02/18 16:30 07/05/18 08:49 Humalog SUB-Q Not Given ACHS MIRTHA Protocol Insulin Human Lispro 10 unit 07/04/18 16:30 07/05/18 08:49 Humalog SUB-Q Not Given AC MIRTHA Levothyroxine Sodium 75 mcg 07/05/18 06:00 07/05/18 05:46 Synthroid PO 75 mcg DAILY@0600 MIRTHA Administration Miscellaneous Medication 2 spray 07/03/18 14:00 07/05/18 09:44 Desmopressin 0.01% InNostril Not Given DAILY MIRTHA Ondansetron HCl 4 mg 07/02/18 02:39 Zofran IV Q8H PRN Nausea And Vomiting Paroxetine HCl 20 mg 07/03/18 10:00 07/05/18 09:43 Paxil PO 20 mg QDAY MIRTHA Administration Potassium Phos/Sodium Phos 1 each 07/04/18 14:00 07/05/18 05:46 Phos-Nak PO 1 each Q8HR MIRTHA Administration Pravastatin Sodium 80 mg 07/02/18 22:00 07/04/18 23:03 Pravachol PO 80 mg QHS MIRTHA Administration Sodium Chloride 10 ml 07/02/18 10:00 07/05/18 09:44 Sodium Chloride Flush Syringe 10 Ml IV 10 ml BID MIRTHA Administration Sodium Chloride 10 ml 07/02/18 02:39 Sodium Chloride Flush Syringe 10 Ml IV PRN PRN LINE FLUSH Nutrition/Malnutrition Assess - Dietary Evaluation Nutrition/Malnutrition Findings: Nutrition Notes Start: 07/02/18 13:21 Freq: Status: Active Protocol: Document 07/02/18 13:22 CP (Rec: 07/02/18 13:45 CP [id number]) Co-Sign 07/02/18 13:22 LP Nutrition Notes Need for Assessment generated from: MD Order,Education Initial or Follow up Assessment Current Diagnosis Acute Kidney Injury,Diabetes, Sepsis Other Pertinent Diagnosis Pneumonia, UTI, depression, leukocytes, hypothythroidism Current Diet Mechanical Soft Labs/Tests Reviewed Pertinent Medications Reviewed Height 5 ft 8 in Weight 92.986 kg [place] Body Weight (kg) 63.63 BMI 31.1 Intake Prior to Admission Good Weight change and time frame Pt stated that she did not have weight loss/gain. Weight Status Obese Subjective/Other Information MD consult for diet education. Pt stated that her appetite is low and consumed 0% of her meals. Pt was open to Glucerna and reported no N/V/D/C. Pt responsive to diet education. Percent of energy/protein needs met: 0%./0% Burn Absent Trauma Absent #1 Nutrition Diagnosis Inadequate oral intake Etiology Low appetite As Evidenced by Signs and Symptoms Pt consuming 0% of her meals Is patient on ventilator? No Is Patient Ambulatory and/or Out of Bed No REE-([facility]-confined to bed) 1991.564 Kcal/Kg value to use for calculation 17 Approximate Energy Requirements Using 1581 kcal/Kg Calculation Used for Recommendations Kcal/kg Additional Notes Pro: (1-1.3g/kg) 93-121 g/day Fluid: 1mL/kcal or per MD request Nutrition Intervention Change Diet Order: Continue current or per MD request Add Supplement/Snack (indicate name/kcal Glucerna daily (chocolate) /protein ) Provides kCal: 220 Provides Protein (gm) 10 Teaching Recipient Patient Learning Readiness Good Teaching Methods Discussion,Handout Response to Teaching Verbalize understanding Education Handouts Provided Consistent carbohydrate Barriers to Learning No Barriers RD phone number provided No Patient aware of follow up options No Goal #1 Adherence to diet education Goal #2 PO and ONS intake to meet at least 75% of energy and protein needs Follow-Up By: 07/06/18 Additional Comments F/U: PO and ONS intakes
--- NOTE | 2018-07-05 12:24 | Progress Note ---
Assessment and Plan Cultures: Blood cultures 07/01/2018 no growth today. 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 UA not c/w UTI to explain the sepsis. CXR and Chest CT no consolidations. HIV neg. GAS neg. Rapid influenza negative. Blood cultures 07/01/2018 no growth. VQ scan low prob for PE. US GB not abnormalities. Doubt meningitis as her mentation has improved significantly and no headaches or persistent fever. - DILIP: Creat 1.6. CrCL 75 now creat 1.5 - Elevated LFTs: mild, AST 67. will repeat - Hypernatremia - Low platelets Recommendations: - follow-up blood cultures, urine culture - check influenza PCR - pending - continue cefepime 2 gm IV q12 hour and vancomycin renally adjusted until today D3 - no evidence of infectious source - monitor mentation Will follow Julia Montaño MD Infectious Diseases [facility] [phone] O [phone] Subjective Date of service: 07/05/18 Principal diagnosis: SIRS Interval history: Feels better, denies SOB, pain, N/V/D. Review of Systems: General: no fever, chills, nightsweats, unintentional weight change, or change in appetite Cutaneous: no rash, pruritus Musculoskeletal: no decreased joint motion, bone or joint pain, joint swelling, muscle aches Gastrointestinal: no nausea, vomiting, hematemesis, diarrhea Objective - Exam Narrative Exam: General appearance: Alert in NAD, conversant Eyes: anicteric sclerae, moist conjunctivae; no lid-lag; PERRLA HENT: Atraumatic; oropharynx clear with moist mucous membranes and no mucosal ulcerations/no oral thrush; normal hard and soft palate. Normal external ears. Neck: Trachea midline; supple, no thyromegaly or lymphadenopathy Lungs: CTA CV: RRR Abdomen: Soft, non-tender; no masses or hepatosplenomegaly Extremities: + peripheral leg edema Skin: Normal temperature, turgor and texture; no rash, ulcers or subcutaneous nodules Psych: Appropriate affect, alert and oriented to person, place and time. Neuro: alert and oriented x 3. Moving all extermities - Constitutional Vitals: Vital Signs Temp Pulse Resp BP Pulse Ox 98.3 F 77 18 149/85 96 07/05/18 07:30 07/05/18 08:30 07/05/18 08:30 07/05/18 07:30 07/05/18 09:08 Temperature -Last 24 Hours Temperature 98.3 F Temperature 98.5 F Temperature 99.1 F Temperature 97.4 F Temperature 97.9 F Temperature 98.0 F - Labs CBC & Chem 7: 07/05/18 06:26 07/05/18 06:26 Labs: Abnormal lab results 07/04/18 07/04/18 07/05/18 Range/Units 16:36 21:30 06:26 WBC (4.5-11.0) K/mm3 MCH (28-32) pg RDW (13.2-15.2) % Plt Count (140-440) K/mm3 Lymph % (Auto) (13.4-35.0) % Seg Neutrophils % (40.0-70.0) % Seg Neutrophils # (1.8-7.7) K/mm3 PT 36.4 H (12.2-14.9) Sec. INR 3.36 H (0.87-1.13) Sodium (137-145) mmol/L Chloride (98-107) mmol/L BUN (7-17) mg/dL Creatinine (0.7-1.2) mg/dL Glucose (65-100) mg/dL POC Glucose 382 H 339 H (70-105) 07/05/18 07/05/18 07/05/18 Range/Units 06:26 06:26 08:06 WBC 14.8 H (4.5-11.0) K/mm3 MCH 26 L (28-32) pg RDW 16.6 H (13.2-15.2) % Plt Count 117 L (140-440) K/mm3 Lymph % (Auto) 12.0 L (13.4-35.0) % Seg Neutrophils % 82.3 H (40.0-70.0) % Seg Neutrophils # 12.2 H (1.8-7.7) K/mm3 PT (12.2-14.9) Sec. INR (0.87-1.13) Sodium 158 H (137-145) mmol/L Chloride 123.7 H (98-107) mmol/L BUN 25 H (7-17) mg/dL Creatinine 1.5 H (0.7-1.2) mg/dL Glucose 64 L (65-100) mg/dL POC Glucose 50 L (70-105) 07/05/18 07/05/18 Range/Units 08:48 11:37 WBC (4.5-11.0) K/mm3 MCH (28-32) pg RDW (13.2-15.2) % Plt Count (140-440) K/mm3 Lymph % (Auto) (13.4-35.0) % Seg Neutrophils % (40.0-70.0) % Seg Neutrophils # (1.8-7.7) K/mm3 PT (12.2-14.9) Sec. INR (0.87-1.13) Sodium (137-145) mmol/L Chloride (98-107) mmol/L BUN (7-17) mg/dL Creatinine (0.7-1.2) mg/dL Glucose (65-100) mg/dL POC Glucose 230 H 230 H (70-105)
[2018-07-05] MEDS: DDAVP PO SCH ×2 (14:04→22:21)
--- NOTE | 2018-07-05 18:47 | Progress Note ---
Assessment and Plan Patient awake.Resting on room air. O2 saturation 97%.No acute respiratory distress.No complaint of chest pain, shortness of breath or cough. - Patient Problems (1) Sepsis Current Visit: Yes Status: Acute Qualifiers: Sepsis type: sepsis due to unspecified organism Qualified Code(s): A41.9 - Sepsis, unspecified organism Plan to address problem: Patient is on Cefepime and Vancomycin (2) UTI (urinary tract infection) Current Visit: Yes Status: Acute Qualifiers: Urinary tract infection type: acute cystitis Hematuria presence: without hematuria Qualified Code(s): N30.00 - Acute cystitis without hematuria Plan to address problem: Patient is on Cefepime and Vancomycin (3) Deep venous thrombosis of right popliteal vein Current Visit: No Status: Acute Plan to address problem: INR 3.36 Coumadin held. (4) CVA (cerebral vascular accident) Current Visit: No Status: Chronic Plan to address problem: [place] as per neurology Subjective Date of service: 07/05/18 Principal diagnosis: SIRS Interval history: Patient awake.Resting on room air. O2 saturation 97%.No acute respiratory distress.No complaint of chest pain, shortness of breath or cough. Objective Vital Signs - 12hr 07/05/18 07/05/18 07/05/18 07:30 08:20 08:30 Temperature 98.3 F Pulse Rate Pulse Rate [ 75 77 Bilateral Throughout] Respiratory 18 Rate Respiratory 18 18 Rate [Bilateral Throughout] Blood Pressure 149/85 O2 Sat by Pulse Oximetry 07/05/18 07/05/18 07/05/18 09:08 12:17 13:33 Temperature 98.7 F Pulse Rate Pulse Rate [ 74 Bilateral Throughout] Respiratory 18 Rate Respiratory 20 Rate [Bilateral Throughout] Blood Pressure 144/81 O2 Sat by Pulse 96 Oximetry 07/05/18 07/05/18 13:43 17:54 Temperature 98.2 F Pulse Rate 84 Pulse Rate [ 87 Bilateral Throughout] Respiratory 20 Rate Respiratory 20 Rate [Bilateral Throughout] Blood Pressure 145/80 O2 Sat by Pulse 98 Oximetry Constitutional: no acute distress, alert, other (somewhat slowed mentation) Eyes: non-icteric ENT: oropharynx moist Neck: supple, no lymphadenopathy Ascultation: Bilateral: rhonchi Cardiovascular: regular rate and rhythm Gastrointestinal: normoactive bowel sounds Integumentary: normal Extremities: no cyanosis, no edema Neurologic: pupils equal and round, other (History of CVA and right hemiplegia.) Psychiatric: other (mentation is slowed) CBC and BMP: 07/05/18 06:26 07/05/18 06:26 ABG, PT/INR, D-dimer: PT/INR, D-dimer PT 36.4 Sec. (12.2-14.9) H 07/05/18 06:26 INR 3.36 (0.87-1.13) H 07/05/18 06:26 Abnormal lab findings: Abnormal Labs 07/01/18 07/01/18 07/01/18 20:16 20:16 20:26 WBC 14.8 H RBC 5.80 H Hgb 15.2 H Hct 47.2 H MCH 26 L RDW 15.3 H Plt Count Lymph % (Auto) Seg Neutrophils % 80.3 H Seg Neutrophils # 11.9 H PT INR APTT 51.3 H Sodium Chloride BUN 22 H Creatinine 1.6 H Glucose 63 L POC Glucose Hemoglobin A1c Lactic Acid Calcium Phosphorus AST 67 H Total Protein 9.1 H TSH Free T4 Urine WBC (Auto) 07/01/18 07/01/18 07/02/18 22:41 23:14 00:15 WBC RBC Hgb Hct MCH RDW Plt Count Lymph % (Auto) Seg Neutrophils % Seg Neutrophils # PT INR APTT Sodium Chloride BUN Creatinine Glucose POC Glucose 57 L Hemoglobin A1c Lactic Acid 0.60 L Calcium Phosphorus AST Total Protein TSH Free T4 Urine WBC (Auto) 10.0 H 07/02/18 07/02/18 07/02/18 05:31 11:16 13:19 WBC RBC Hgb Hct MCH RDW Plt Count Lymph % (Auto) Seg Neutrophils % Seg Neutrophils # PT 16.5 H INR 1.25 H APTT Sodium Chloride BUN Creatinine Glucose POC Glucose 65 L 203 H Hemoglobin A1c Lactic Acid Calcium Phosphorus AST Total Protein TSH Free T4 Urine WBC (Auto) 07/02/18 07/02/18 07/02/18 13:19 13:19 13:19 WBC RBC Hgb Hct MCH RDW Plt Count Lymph % (Auto) Seg Neutrophils % Seg Neutrophils # PT INR APTT Sodium Chloride BUN Creatinine Glucose POC Glucose Hemoglobin A1c Lactic Acid Calcium Phosphorus AST Total Protein TSH 0.013 L 0.013 L Free T4 1.52 H 1.51 H Urine WBC (Auto) 07/02/18 07/02/18 07/02/18 13:19 15:21 17:11 WBC RBC Hgb Hct MCH RDW Plt Count Lymph % (Auto) Seg Neutrophils % Seg Neutrophils # PT INR APTT Sodium Chloride BUN Creatinine Glucose POC Glucose 336 H 351 H Hemoglobin A1c 7.8 H Lactic Acid Calcium Phosphorus AST Total Protein TSH Free T4 Urine WBC (Auto) 07/02/18 07/03/18 07/03/18 21:05 07:50 07:50 WBC RBC Hgb Hct MCH RDW Plt Count Lymph % (Auto) Seg Neutrophils % Seg Neutrophils # PT 22.7 H INR 1.86 H APTT Sodium Chloride 109.0 H BUN Creatinine 1.4 H Glucose 316 H POC Glucose 342 H Hemoglobin A1c Lactic Acid Calcium 8.3 L D Phosphorus AST Total Protein TSH Free T4 Urine WBC (Auto) 07/03/18 07/03/18 07/04/18 14:05 17:43 00:21 WBC RBC Hgb Hct MCH RDW Plt Count Lymph % (Auto) Seg Neutrophils % Seg Neutrophils # PT INR APTT Sodium Chloride BUN Creatinine Glucose POC Glucose 364 H 404 H 436 H Hemoglobin A1c Lactic Acid Calcium Phosphorus AST Total Protein TSH Free T4 Urine WBC (Auto) 07/04/18 07/04/18 07/04/18 07:58 08:45 08:45 WBC RBC Hgb Hct MCH RDW Plt Count Lymph % (Auto) Seg Neutrophils % Seg Neutrophils # PT 27.8 H INR 2.40 H APTT Sodium 151 H Chloride 115.9 H BUN 23 H Creatinine 1.3 H Glucose 361 H POC Glucose 340 H Hemoglobin A1c Lactic Acid Calcium Phosphorus 2.20 L AST Total Protein TSH Free T4 Urine WBC (Auto) 07/04/18 07/04/18 07/04/18 12:08 16:36 21:30 WBC RBC Hgb Hct MCH RDW Plt Count Lymph % (Auto) Seg Neutrophils % Seg Neutrophils # PT INR APTT Sodium Chloride BUN Creatinine Glucose POC Glucose 429 H 382 H 339 H Hemoglobin A1c Lactic Acid Calcium Phosphorus AST Total Protein TSH Free T4 Urine WBC (Auto) 07/05/18 07/05/18 07/05/18 06:26 06:26 06:26 WBC 14.8 H RBC Hgb Hct MCH 26 L RDW 16.6 H Plt Count 117 L Lymph % (Auto) 12.0 L Seg Neutrophils % 82.3 H Seg Neutrophils # 12.2 H PT 36.4 H INR 3.36 H APTT Sodium 158 H Chloride 123.7 H BUN 25 H Creatinine 1.5 H Glucose 64 L POC Glucose Hemoglobin A1c Lactic Acid Calcium Phosphorus AST Total Protein TSH Free T4 Urine WBC (Auto) 07/05/18 07/05/18 07/05/18 08:06 08:48 11:37 WBC RBC Hgb Hct MCH RDW Plt Count Lymph % (Auto) Seg Neutrophils % Seg Neutrophils # PT INR APTT Sodium Chloride BUN Creatinine Glucose POC Glucose 50 L 230 H 230 H Hemoglobin A1c Lactic Acid Calcium Phosphorus AST Total Protein TSH Free T4 Urine WBC (Auto) 07/05/18 16:11 WBC RBC Hgb Hct MCH RDW Plt Count Lymph % (Auto) Seg Neutrophils % Seg Neutrophils # PT INR APTT Sodium Chloride BUN Creatinine Glucose POC Glucose 264 H Hemoglobin A1c Lactic Acid Calcium Phosphorus AST Total Protein TSH Free T4 Urine WBC (Auto)
[2018-07-05] MEDS: VANCOMYCIN 1,250 MG in NACL 0.9% 250ML 250 ML IV SCH (23:14)
[2018-07-05] MEDS: PRAVACHOL PO SCH (23:14)
[2018-07-06] MEDS: DUONEB *Not for PRN Use IH SCH ×4 (02:00→20:13)
[2018-07-06] MEDS: D5W 1,000 ML IV SCH ×2 (03:13→21:53)
[2018-07-06] MEDS: SYNTHROID PO SCH (06:28)
[2018-07-06] MEDS: PHOS-NAK PO SCH ×3 (06:28→21:57)
[2018-07-06 07:15] LABS: INR 2.18 (0.87-1.13)
[2018-07-06 07:25] LABS: BUN/Creatinine Ratio 14; Blood Urea Nitrogen 17 mg/dL (7-17); Calcium 8.3 mg/dL (8.4-10.2); Hemolysis Index 13
[2018-07-06] MEDS: HumaLOG SUB-Q SCH ×6 (07:30→21:55)
[2018-07-06] MEDS: D50W (25GM) Syringe IV PRN (07:41)
--- NOTE | 2018-07-06 08:41 | Progress Note ---
Assessment and Plan Cultures: Blood cultures 07/01/2018 no growth . 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 no fever or leukocytosis. etiology unclear ?. UA not c/w UTI to explain the sepsis. CXR and Chest CT no consolidations. HIV neg. GAS neg. Rapid influenza negative. Blood cultures 07/01/2018 no growth. VQ scan low prob for PE. US GB not abnormalities. Doubt meningitis as her mentation has improved significantly and no headaches or persistent fever. - DILIP: Improved, Nephrology following - Elevated LFTs: Resolved - Hypernatremia continuing - Low platelets Recommendations: - f/u influenza PCR - pending - continue to monitor off antibiotics [facility] M: [phone] O:[phone] Subjective Date of service: 07/06/18 Principal diagnosis: SIRS Interval history: Patient seen and examined. Sitting up in the bed, denies generalized pain or SOB. No fevers. Family at bedside. Objective - Exam Narrative Exam: General appearance: Alert in NAD, conversant Eyes: anicteric sclerae, moist conjunctivae; no lid-lag; PERRLA HENT: Atraumatic; oropharynx clear with moist mucous membranes and no mucosal ulcerations/no oral thrush; normal hard and soft palate. Normal external ears. Neck: Trachea midline; supple, no thyromegaly or lymphadenopathy Lungs: CTA CV: RRR Abdomen: Soft, non-tender; no masses or hepatosplenomegaly Extremities: + peripheral leg edema improved Skin: Normal temperature, turgor and texture; no rash, ulcers or subcutaneous nodules Psych: Appropriate affect, alert and oriented to person, place and time. Neuro: alert and oriented x 3. Moving all extermities - Constitutional Vitals: Vital Signs Temp Pulse Resp BP Pulse Ox 98.6 F 99 H 20 123/74 92 07/06/18 05:36 07/06/18 07:34 07/06/18 07:34 07/06/18 05:36 07/06/18 05:36 Temperature -Last 24 Hours Temperature 98.6 F Temperature 98.8 F Temperature 98.2 F Temperature 98.7 F - Labs CBC & Chem 7: 07/06/18 09:35 07/06/18 06:40 Labs: Abnormal lab results 07/05/18 07/05/18 07/05/18 Range/Units 08:48 11:37 16:11 PT (12.2-14.9) Sec. INR (0.87-1.13) Sodium (137-145) mmol/L Potassium (3.6-5.0) mmol/L Chloride (98-107) mmol/L Glucose (65-100) mg/dL POC Glucose 230 H 230 H 264 H (70-105) Calcium (8.4-10.2) mg/dL 07/05/18 07/06/18 07/06/18 Range/Units 21:04 06:40 06:40 PT 25.7 H (12.2-14.9) Sec. INR 2.18 H (0.87-1.13) Sodium 151 H (137-145) mmol/L Potassium 3.0 L D (3.6-5.0) mmol/L Chloride 108.7 H (98-107) mmol/L Glucose 39 L* (65-100) mg/dL POC Glucose 203 H (70-105) Calcium 8.3 L (8.4-10.2) mg/dL
[2018-07-06] MEDS: LANTUS SUB-Q SCH (09:53)
[2018-07-06] MEDS: SODIUM CHLORIDE FLUSH SYRINGE 10 ML IV SCH ×2 (09:54→21:57)
[2018-07-06] MEDS: PAXIL PO SCH (09:57)
[2018-07-06] MEDS: NEURONTIN PO SCH ×3 (09:57→21:56)
[2018-07-06] MEDS: DESMOPRESSIN 0.01% InNostril SCH (09:58)
[2018-07-06] MEDS: DDAVP PO SCH ×2 (09:58→21:56)
[2018-07-06] MEDS: NORVASC PO SCH (09:59)
[2018-07-06] MEDS ORDERED: K-DUR PO ONE ×2 (10:00→12:00)
[2018-07-06 10:21] LABS: Basophils % (Auto) 0.1 % (0.0-1.8); Eosinophils # (Auto) 0.1 K/mm3 (0.0-0.4); Eosinophils % (Auto) 0.7 % (0.0-4.3); Hematocrit 34.7 % (30.3-42.9); Hemoglobin 11.1 gm/dl (10.1-14.3); Lymphocytes # (Auto) 2.8 K/mm3 (1.2-5.4); Lymphocytes % (Auto) 26.9 % (13.4-35.0); Mean Corpuscular HGB Conc 32 % (30-34); Mean Corpuscular Volume 81 fl (79-97); Monocytes # (Auto) 0.8 K/mm3 (0.0-0.8); Monocytes % (Auto) 7.8 % (0.0-7.3); Platelet Count 102 K/mm3 (140-440); Red Blood Count 4.28 M/mm3 (3.65-5.03); Red Cell Distribution Width 15.7 % (13.2-15.2)
[2018-07-06 10:49] LABS: Alanine Aminotransferase 43 units/L (7-56); Albumin 2.9 g/dL (3.9-5)
[2018-07-06 10:52] LABS: Bilirubin,Direct < 0.2 mg/dL (0-0.2)
[2018-07-06] MEDS ORDERED: TRIPLE ANTIBIOTIC TP ONE (13:23)
--- NOTE | 2018-07-06 13:28 | Progress Note ---
Assessment and Plan - Patient Problems (1) Acute hypernatremia Current Visit: Yes Status: Acute Plan to address problem: Acute hypernatremia secondary to missed DDAVP Has not received nasal sprays of desmopressin nonformulary ordered on admission continue desmopressin 0.1 mg by mouth twice a day which is available in the hospital,will increase dose if hypernatremia persists. continue D5 water for now until hypernatremia improves Recheck sodium levels (2) DILIP (acute kidney injury) Current Visit: Yes Status: Acute Plan to address problem: Acute kidney injury :improving 2/2 recent sepsis,hypotension Baseline creatinine 1.2 Current creatinine 1.2mg/dl from 1.5 mg/DL Stop lisinopril Intravenous fluids above (3) Hypertension Current Visit: Yes Status: Acute Plan to address problem: Hypertension:uncontrolled Stop lisinopril given acute kidney injury We'll change to amlodipine 2.5 mg daily (4) Hypokalemia Current Visit: Yes Status: Acute Plan to address problem: Mild Hypokalemia will give 40meq Kcl now. check magnesium levels. 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 Objective - Vital Signs Vital signs: Vital Signs - 12hr 07/06/18 07/06/18 07/06/18 05:36 07:22 07:34 Temperature 98.6 F Pulse Rate 73 Pulse Rate [ 78 99 H Bilateral Throughout] Respiratory 24 Rate Respiratory 20 20 Rate [Bilateral Throughout] Blood Pressure 123/74 O2 Sat by Pulse 92 Oximetry 07/06/18 07/06/18 07/06/18 09:59 11:35 13:12 Temperature 99.8 F H Pulse Rate 87 Pulse Rate [ 101 H Bilateral Throughout] Respiratory 18 Rate Respiratory 18 Rate [Bilateral Throughout] Blood Pressure 125/66 142/82 O2 Sat by Pulse 95 Oximetry - General Appearance General appearance: well-developed, well-nourished EENT: ATNC, PERRL Neck: no JVD Respiratory: Present: Clear to Ascultation Cardiology: regular, S1S2 Gastrointestinal: normal, normoactive bowel sounds Integumentary: no rash Neurologic: alert and oriented x3, CN 3-12 intact Psychiatric: mood/affect appropriate - Lab 07/06/18 09:35 07/06/18 06:40 Most recent lab results Calcium 8.3 mg/dL (8.4-10.2) L 07/06/18 06:40 Phosphorus 4.00 mg/dL (2.5-4.5) 07/06/18 06:40 Magnesium 2.10 mg/dL (1.7-2.3) 07/04/18 08:45 - Imaging Chest x-ray: image reviewed Medications & Allergies - Medications Allergies/Adverse Reactions: Allergies No Known Allergies Allergy (Verified 05/07/16 09:44) Home Medications: Home Medications Medication Instructions Recorded Confirmed Last Taken Type Aspirin [Aspirin TAB] 325 mg PO DAILY 09/20/13 02/20/15 01/08/15 History DESMOPRESSIN 0.01%(nf) [Ddavp(Nf)] 2 spray INNOSTRIL DAILY 09/20/13 02/20/15 01/08/15 History Gabapentin 100 mg PO TID 09/20/13 02/20/15 01/08/15 History Glimepiride 1 mg PO DAILY 09/20/13 02/20/15 01/08/15 History Hydrocortisone 20 mg PO DAILY 09/20/13 02/20/15 01/08/15 History Levothyroxine [Synthroid] 112 mcg PO DAILY 09/20/13 02/20/15 01/08/15 History Simvastatin (Nf) [Zocor TAB] 40 mg PO QHS 09/20/13 02/20/15 01/07/15 History Warfarin [Coumadin] 10 mg PO DAILY@1700 14 Days tablet 12/04/14 02/20/15 01/08/15 Rx Amlodipine Besylate [Norvasc] 2.5 mg PO DAILY 30 Days tab 01/09/15 02/20/15 Unknown Rx HYDROcodone/APAP 10-325 [[place] 1 each PO Q8HR PRN #20 tablet 01/09/15 02/20/15 Unknown Rx 10/325] PARoxetine [Paxil] 10 mg PO TID #90 tablet 04/16/15 Unknown Rx traMADol [Ultram] 50 mg PO Q4HR PRN #20 tablet 04/16/15 Unknown Rx HYDROcodone/APAP 5-325 [[place] 1 each PO Q6HR PRN #15 tablet 07/31/15 Unknown Rx 5-325 mg TAB] Ibuprofen [Motrin 800 MG tab] 800 mg PO Q8HR PRN #30 tablet 11/14/15 Unknown Rx Sulfamethoxazole/Trimethoprim 1 each PO BID #14 tablet 12/27/15 Unknown Rx [Bactrim DS TAB] Butalb/Acetamin/Caff 50-325-40 1 tab PO Q8HR PRN #20 tablet 05/07/16 Unknown Rx [Fioricet] Active Medications: Generic Name Dose Route Start Last Admin Trade Name Freq PRN Reason Stop Dose Admin Acetaminophen 650 mg 07/02/18 02:39 Tylenol PO Q4H PRN Pain MILD(1-3)/Fever >100.5/GARCIA Acetaminophen/Butalbital/Caffeine 1 tab 07/02/18 11:54 Fioricet PO Q8HR PRN Headache Albuterol/Ipratropium 1 ampul 07/02/18 08:00 07/06/18 13:10 Duoneb *Not For Prn Use* IH 1 ampul Q6HRT MIRTHA Administration Amlodipine Besylate 2.5 mg 07/06/18 10:00 07/06/18 09:59 Norvasc PO 2.5 mg QDAY MIRTHA Administration Desmopressin Acetate 0.1 mg 07/05/18 11:00 07/06/18 09:58 Ddavp PO 0.1 mg BID MIRTHA Administration Dextrose 50 ml 07/02/18 02:39 07/06/18 07:41 D50w (25gm) Syringe IV 50 ml PRN PRN Administration Hypoglycemia Gabapentin 100 mg 07/02/18 14:00 07/06/18 09:57 Neurontin PO 100 mg TID MIRTHA Administration Dextrose 1,000 mls @ 125 mls/hr 07/05/18 10:30 07/06/18 03:13 D5w IV 125 mls/hr DIRECT MIRTHA Administration Insulin Human Lispro 0 unit 07/02/18 16:30 07/06/18 11:56 Humalog SUB-Q 2 unit ACHS MIRTHA Administration Protocol Levothyroxine Sodium 75 mcg 07/05/18 06:00 07/06/18 06:28 Synthroid PO 75 mcg DAILY@0600 MIRTHA Administration Miscellaneous Medication 2 spray 07/03/18 14:00 07/06/18 09:58 Desmopressin 0.01% InNostril Not Given DAILY [facility] Ondansetron HCl 4 mg 07/02/18 02:39 Zofran IV Q8H PRN Nausea And Vomiting Paroxetine HCl 20 mg 07/03/18 10:00 07/06/18 09:57 Paxil PO 20 mg QDAY [facility] Administration Potassium Phos/Sodium Phos 1 each 07/04/18 14:00 07/06/18 06:28 Phos-Nak PO 1 each Q8HR [facility] Administration Pravastatin Sodium 80 mg 07/02/18 22:00 07/05/18 23:14 Pravachol PO 80 mg QHS MIRTHA Administration Sodium Chloride 10 ml 07/02/18 10:00 07/06/18 09:54 Sodium Chloride Flush Syringe 10 Ml IV 10 ml BID MIRTHA Administration Sodium Chloride 10 ml 07/02/18 02:39 Sodium Chloride Flush Syringe 10 Ml IV PRN PRN LINE FLUSH Warfarin Sodium 5 mg 07/06/18 17:00 Coumadin PO DAILY@1700 [facility]
--- NOTE | 2018-07-06 14:03 | Progress Note ---
Assessment and Plan Patient awake. Resting on room air. O2 saturation 95%. No acute respiratory distress. No complaint of chest pain, shortness of breath or cough. Patient running a low grade temperature. No leukocytosis. - Patient Problems (1) Sepsis Current Visit: Yes Status: Acute Qualifiers: Sepsis type: sepsis due to unspecified organism Qualified Code(s): A41.9 - Sepsis, unspecified organism Plan to address problem: Patient is on Cefepime and Vancomycin (2) UTI (urinary tract infection) Current Visit: Yes Status: Acute Qualifiers: Urinary tract infection type: acute cystitis Hematuria presence: without hematuria Qualified Code(s): N30.00 - Acute cystitis without hematuria Plan to address problem: Patient is on Cefepime and Vancomycin (3) Deep venous thrombosis of right popliteal vein Current Visit: No Status: Acute Plan to address problem: INR 2.18 (4) CVA (cerebral vascular accident) Current Visit: No Status: Chronic Plan to address problem: Management as per neurology Subjective Date of service: 07/06/18 Principal diagnosis: SIRS Interval history: Patient awake. Resting on room air. O2 saturation 95%. No acute respiratory distress. No complaint of chest pain, shortness of breath or cough. Patient running a low grade temperature. No leukocytosis. Objective Vital Signs - 12hr 07/06/18 07/06/18 07/06/18 05:36 07:22 07:34 Temperature 98.6 F Pulse Rate 73 Pulse Rate [ 78 99 H Bilateral Throughout] Respiratory 24 Rate Respiratory 20 20 Rate [Bilateral Throughout] Blood Pressure 123/74 O2 Sat by Pulse 92 Oximetry 07/06/18 07/06/18 07/06/18 09:59 11:35 13:12 Temperature 99.8 F H Pulse Rate 87 Pulse Rate [ 101 H Bilateral Throughout] Respiratory 18 Rate Respiratory 18 Rate [Bilateral Throughout] Blood Pressure 125/66 142/82 O2 Sat by Pulse 95 Oximetry 07/06/18 13:23 Temperature Pulse Rate Pulse Rate [ 100 H Bilateral Throughout] Respiratory Rate Respiratory 18 Rate [Bilateral Throughout] Blood Pressure O2 Sat by Pulse Oximetry Constitutional: no acute distress, alert Eyes: non-icteric ENT: oropharynx moist Neck: supple, no lymphadenopathy Ascultation: Bilateral: rhonchi Cardiovascular: regular rate and rhythm Gastrointestinal: normoactive bowel sounds Integumentary: normal Extremities: no cyanosis, no edema Neurologic: pupils equal and round, CN II-XII normal, other (right hemiplesia) Psychiatric: mood appropriate, affect normal CBC and BMP: 07/06/18 09:35 07/06/18 06:40 ABG, PT/INR, D-dimer: PT/INR, D-dimer PT 25.7 Sec. (12.2-14.9) H 07/06/18 06:40 INR 2.18 (0.87-1.13) H 07/06/18 06:40 Abnormal lab findings: Abnormal Labs 07/01/18 07/01/18 07/01/18 20:16 20:16 20:26 WBC 14.8 H RBC 5.80 H Hgb 15.2 H Hct 47.2 H MCH 26 L RDW 15.3 H Plt Count Lymph % (Auto) [place] % (Auto) Seg Neutrophils % 80.3 H Seg Neutrophils # 11.9 H PT INR APTT 51.3 H Sodium Potassium Chloride BUN 22 H Creatinine 1.6 H Glucose 63 L POC Glucose Hemoglobin A1c Lactic Acid Calcium Phosphorus AST 67 H Total Protein 9.1 H Albumin TSH Free T4 Urine WBC (Auto) 07/01/18 07/01/18 07/02/18 22:41 23:14 00:15 WBC RBC Hgb Hct MCH RDW Plt Count Lymph % (Auto) [place] % (Auto) Seg Neutrophils % Seg Neutrophils # PT INR APTT Sodium Potassium Chloride BUN Creatinine Glucose POC Glucose 57 L Hemoglobin A1c Lactic Acid 0.60 L Calcium Phosphorus AST Total Protein Albumin TSH Free T4 Urine WBC (Auto) 10.0 H 07/02/18 07/02/18 07/02/18 05:31 11:16 13:19 WBC RBC Hgb Hct MCH RDW Plt Count Lymph % (Auto) [place] % (Auto) Seg Neutrophils % Seg Neutrophils # PT 16.5 H INR 1.25 H APTT Sodium Potassium Chloride BUN Creatinine Glucose POC Glucose 65 L 203 H Hemoglobin A1c Lactic Acid Calcium Phosphorus AST Total Protein Albumin TSH Free T4 Urine WBC (Auto) 07/02/18 07/02/18 07/02/18 13:19 13:19 13:19 WBC RBC Hgb Hct MCH RDW Plt Count Lymph % (Auto) [place] % (Auto) Seg Neutrophils % Seg Neutrophils # PT INR APTT Sodium Potassium Chloride BUN Creatinine Glucose POC Glucose Hemoglobin A1c Lactic Acid Calcium Phosphorus AST Total Protein Albumin TSH 0.013 L 0.013 L Free T4 1.52 H 1.51 H Urine WBC (Auto) 07/02/18 07/02/18 07/02/18 13:19 15:21 17:11 WBC RBC Hgb Hct MCH RDW Plt Count Lymph % (Auto) [place] % (Auto) Seg Neutrophils % Seg Neutrophils # PT INR APTT Sodium Potassium Chloride BUN Creatinine Glucose POC Glucose 336 H 351 H Hemoglobin A1c 7.8 H Lactic Acid Calcium Phosphorus AST Total Protein Albumin TSH Free T4 Urine WBC (Auto) 07/02/18 07/03/18 07/03/18 21:05 07:50 07:50 WBC RBC Hgb Hct MCH RDW Plt Count Lymph % (Auto) [place] % (Auto) Seg Neutrophils % Seg Neutrophils # PT 22.7 H INR 1.86 H APTT Sodium Potassium Chloride 109.0 H BUN Creatinine 1.4 H Glucose 316 H POC Glucose 342 H Hemoglobin A1c Lactic Acid Calcium 8.3 L D Phosphorus AST Total Protein Albumin TSH Free T4 Urine WBC (Auto) 07/03/18 07/03/18 07/04/18 14:05 17:43 00:21 WBC RBC Hgb Hct MCH RDW Plt Count Lymph % (Auto) [place] % (Auto) Seg Neutrophils % Seg Neutrophils # PT INR APTT Sodium Potassium Chloride BUN Creatinine Glucose POC Glucose 364 H 404 H 436 H Hemoglobin A1c Lactic Acid Calcium Phosphorus AST Total Protein Albumin TSH Free T4 Urine WBC (Auto) 07/04/18 07/04/18 07/04/18 07:58 08:45 08:45 WBC RBC Hgb Hct MCH RDW Plt Count Lymph % (Auto) [place] % (Auto) Seg Neutrophils % Seg Neutrophils # PT 27.8 H INR 2.40 H APTT Sodium 151 H Potassium Chloride 115.9 H BUN 23 H Creatinine 1.3 H Glucose 361 H POC Glucose 340 H Hemoglobin A1c Lactic Acid Calcium Phosphorus 2.20 L AST Total Protein Albumin TSH Free T4 Urine WBC (Auto) 07/04/18 07/04/18 07/04/18 12:08 16:36 21:30 WBC RBC Hgb Hct MCH RDW Plt Count Lymph % (Auto) [place] % (Auto) Seg Neutrophils % Seg Neutrophils # PT INR APTT Sodium Potassium Chloride BUN Creatinine Glucose POC Glucose 429 H 382 H 339 H Hemoglobin A1c Lactic Acid Calcium Phosphorus AST Total Protein Albumin TSH Free T4 Urine WBC (Auto) 07/05/18 07/05/18 07/05/18 06:26 06:26 06:26 WBC 14.8 H RBC Hgb Hct MCH 26 L RDW 16.6 H Plt Count 117 L Lymph % (Auto) 12.0 L [place] % (Auto) Seg Neutrophils % 82.3 H Seg Neutrophils # 12.2 H PT 36.4 H INR 3.36 H APTT Sodium 158 H Potassium Chloride 123.7 H BUN 25 H Creatinine 1.5 H Glucose 64 L POC Glucose Hemoglobin A1c Lactic Acid Calcium Phosphorus AST Total Protein Albumin TSH Free T4 Urine WBC (Auto) 07/05/18 07/05/18 07/05/18 08:06 08:48 11:37 WBC RBC Hgb Hct MCH RDW Plt Count Lymph % (Auto) [place] % (Auto) Seg Neutrophils % Seg Neutrophils # PT INR APTT Sodium Potassium Chloride BUN Creatinine Glucose POC Glucose 50 L 230 H 230 H Hemoglobin A1c Lactic Acid Calcium Phosphorus AST Total Protein Albumin TSH Free T4 Urine WBC (Auto) 07/05/18 07/05/18 07/06/18 16:11 21:04 06:40 WBC RBC Hgb Hct MCH RDW Plt Count Lymph % (Auto) [place] % (Auto) Seg Neutrophils % Seg Neutrophils # PT 25.7 H INR 2.18 H APTT Sodium Potassium Chloride BUN Creatinine Glucose POC Glucose 264 H 203 H Hemoglobin A1c Lactic Acid Calcium Phosphorus AST Total Protein Albumin TSH Free T4 Urine WBC (Auto) 07/06/18 07/06/18 07/06/18 06:40 09:35 09:35 WBC RBC Hgb Hct MCH 26 L RDW 15.7 H Plt Count 102 L Lymph % (Auto) [place] % (Auto) 7.8 H Seg Neutrophils % Seg Neutrophils # PT INR APTT Sodium 151 H Potassium 3.0 L D Chloride 108.7 H BUN Creatinine Glucose 39 L* POC Glucose Hemoglobin A1c Lactic Acid Calcium 8.3 L Phosphorus AST Total Protein Albumin 2.9 L TSH Free T4 Urine WBC (Auto) 07/06/18 11:28 WBC RBC Hgb Hct MCH RDW Plt Count Lymph % (Auto) [place] % (Auto) Seg Neutrophils % Seg Neutrophils # PT INR APTT Sodium Potassium Chloride BUN Creatinine Glucose POC Glucose 153 H Hemoglobin A1c Lactic Acid Calcium Phosphorus AST Total Protein Albumin TSH Free T4 Urine WBC (Auto)
--- NOTE | 2018-07-06 14:42 | Progress Note ---
Assessment and Plan Assessment and plan: 37-year-old woman previous history of right lower extremity DVT in 2015, hypertension, neuropathy, diabetes and hypothyroidism, pituitary insufficiency, major depression, hyperlipidemia, chronic pain syndrome Dopplers show RLE chronic dvt Diagnoses SIRS, fever and tachycardia Productive Cough Hypertension history of DVT hypopituitary syndrome, history of brain cancer status post craniectomy and resection, causing chronic hypopituitarism type 2 DM with persistent hyperglycemia chronic RLE edema from previous DVT in 2015, off coumadin x 6 months DILIP on CKD, has had CKD stage 2-3 previously, vasomotor nephropathy; resolved currently hypophostatemia hypernatremia, hypokalemia; D5w, replete potassium Sinus tachycardia, resolved Hypoglycemia; D50 when necessary and D5W continuos, DC long acting insulin and will continue with SSI. Plan VQ scan low probability for PE, echo shows preserved EF, Dopplers show chronic right lower extremity DVT, unable to do CT angiogram due to renal failure, however highly suspect VTE, therefore she is anticoagulated Continue warfarin, INR is 2.5 -cxr, CT chest and Rapid flu are neg, no source of infection presently identified HIV rapid was neg and HIV viral load to r/o HIV syndrome, denies recent unprotected sex Cough suppressants as needed Optimize blood pressure meds TSh suppressed, slightly elevated Ft4, synthroid dose reduced, cortisol levels pending, dc hydrocortisone,cont desmopressin per nephrology -oral phos ordered, History Interval history: Patient was seen and evaluated this morning, patient didn't have any complaints. Discussed the management plan was patient and her mother. Hospitalist Physical - Physical exam Narrative exam: Not in cardiopulmonary distress. The patient is obese. Vital signs as documented. Head exam is unremarkable. No scleral icterus . Neck is without jugular venous distension, thyromegaly, or carotid bruits. Lungs are clear to auscultation. Cardiac exam reveals regular rate and Rhythm. Abdominal exam reveals normal bowel sounds. Extremities are nonedematous. LATH HAND: Alert and oriented 3. No focal weakness. - Constitutional Vitals: Temp Pulse Resp BP Pulse Ox 99.8 F H 100 H 18 142/82 95 07/06/18 11:35 07/06/18 13:23 07/06/18 13:23 07/06/18 11:35 07/06/18 11:35 General appearance: Present: no acute distress, mild distress Results - Labs CBC & Chem 7: 07/06/18 09:35 07/06/18 06:40 Labs: Laboratory Last Values WBC 10.5 K/mm3 (4.5-11.0) 07/06/18 09:35 RBC 4.28 M/mm3 (3.65-5.03) 07/06/18 09:35 Hgb 11.1 gm/dl (10.1-14.3) 07/06/18 09:35 Hct 34.7 % (30.3-42.9) 07/06/18 09:35 MCV 81 fl (79-97) 07/06/18 09:35 MCH 26 pg (28-32) L 07/06/18 09:35 MCHC 32 % (30-34) 07/06/18 09:35 RDW 15.7 % (13.2-15.2) H 07/06/18 09:35 Plt Count 102 K/mm3 (140-440) L 07/06/18 09:35 Lymph % (Auto) 26.9 % (13.4-35.0) 07/06/18 09:35 [place] % (Auto) 7.8 % (0.0-7.3) H 07/06/18 09:35 Eos % (Auto) 0.7 % (0.0-4.3) 07/06/18 09:35 Baso % (Auto) 0.1 % (0.0-1.8) 07/06/18 09:35 Lymph # 2.8 K/mm3 (1.2-5.4) 07/06/18 09:35 [place] # 0.8 K/mm3 (0.0-0.8) 07/06/18 09:35 Eos # 0.1 K/mm3 (0.0-0.4) 07/06/18 09:35 Baso # 0.0 K/mm3 (0.0-0.1) 07/06/18 09:35 Seg Neutrophils % 64.5 % (40.0-70.0) 07/06/18 09:35 Seg Neutrophils # 6.8 K/mm3 (1.8-7.7) 07/06/18 09:35 PT 25.7 Sec. (12.2-14.9) H 07/06/18 06:40 INR 2.18 (0.87-1.13) H 07/06/18 06:40 APTT 51.3 Sec. (24.2-36.6) H 07/01/18 20:26 Sodium 151 mmol/L (137-145) H 07/06/18 06:40 Potassium 3.0 mmol/L (3.6-5.0) L D 07/06/18 06:40 Chloride 108.7 mmol/L (98-107) H 07/06/18 06:40 Carbon Dioxide 30 mmol/L (22-30) 07/06/18 06:40 Anion Gap 15 mmol/L 07/06/18 06:40 BUN 17 mg/dL (7-17) 07/06/18 06:40 Creatinine 1.2 mg/dL (0.7-1.2) 07/06/18 06:40 Estimated GFR > 60 ml/min 07/06/18 06:40 BUN/Creatinine Ratio 14 % 07/06/18 06:40 Glucose 39 mg/dL (65-100) L* 07/06/18 06:40 POC Glucose 153 (70-105) H 07/06/18 11:28 Hemoglobin A1c 7.8 % (4-6) H 07/02/18 13:19 Lactic Acid 0.60 mmol/L (0.7-2.0) L 07/01/18 22:41 Calcium 8.3 mg/dL (8.4-10.2) L 07/06/18 06:40 Phosphorus 4.00 mg/dL (2.5-4.5) 07/06/18 06:40 Magnesium 2.10 mg/dL (1.7-2.3) 07/04/18 08:45 Total Bilirubin 0.40 mg/dL (0.1-1.2) 07/06/18 09:35 Direct Bilirubin < 0.2 mg/dL (0-0.2) 07/06/18 09:35 Indirect Bilirubin 0.2 mg/dL 07/06/18 09:35 AST 29 units/L (5-40) 07/06/18 09:35 ALT 43 units/L (7-56) 07/06/18 09:35 Alkaline Phosphatase 72 units/L (35-129) 07/06/18 09:35 Total Protein 6.3 g/dL (6.3-8.2) D 07/06/18 09:35 Albumin 2.9 g/dL (3.9-5) L 07/06/18 09:35 Albumin/Globulin Ratio 0.9 % 07/06/18 09:35 TSH 0.013 mlU/mL (0.270-4.200) L 07/02/18 13:19 Free T4 1.51 ng/dL (0.76-1.46) H 07/02/18 13:19 Thyroxine (T4) 8.2 ug/dL (4.0-12.0) 07/02/18 13:19 Urine Color Yellow (Yellow) 07/01/18 23:14 Urine Turbidity Slightly-cloudy (Clear) 07/01/18 23:14 Urine pH 5.0 (5.0-7.0) 07/01/18 23:14 Ur Specific [place] 1.006 (1.003-1.030) 07/01/18 23:14 Urine Protein <15 mg/dl mg/dL (Negative) 07/01/18 23:14 Urine Glucose (UA) Neg mg/dL (Negative) 07/01/18 23:14 Urine Ketones Neg mg/dL (Negative) 07/01/18 23:14 Urine Blood Neg (Negative) 07/01/18 23:14 Urine Nitrite Neg (Negative) 07/01/18 23:14 Urine Bilirubin Neg (Negative) 07/01/18 23:14 Urine Urobilinogen < 2.0 mg/dL (<2.0) 07/01/18 23:14 Ur Leukocyte Esterase Tr (Negative) 07/01/18 23:14 Urine WBC (Auto) 10.0 /HPF (0.0-6.0) H 07/01/18 23:14 Urine RBC (Auto) 3.0 /HPF (0.0-6.0) 07/01/18 23:14 U Epithel Cells (Auto) 1.0 /HPF (0-13.0) 07/01/18 23:14 Urine Mucus 1+ /HPF 07/01/18 23:14 HIV 1&2 Antibody Rapid Non react (Non React) 07/02/18 11:54 HIV P24 Antigen Non react (Non React) 07/02/18 11:54 Influenza A (Rapid) Negative (Negative) 07/01/18 22:51 Influenza B (Rapid) Negative (Negative) 07/01/18 22:51 Group A Strep Rapid Negative (Negative) 07/01/18 22:51 Active Medications - Current Medications Current Medications: Generic Name Dose Route Start Last Admin Trade Name Freq PRN Reason Stop Dose Admin Acetaminophen 650 mg 07/02/18 02:39 Tylenol PO Q4H PRN Pain MILD(1-3)/Fever >100.5/GARCIA Acetaminophen/Butalbital/Caffeine 1 tab 07/02/18 11:54 Fioricet PO Q8HR PRN Headache Albuterol/Ipratropium 1 ampul 07/02/18 08:00 07/06/18 13:10 Duoneb *Not For Prn Use* IH 1 ampul Q6HRT MIRTHA Administration Amlodipine Besylate 2.5 mg 07/06/18 10:00 07/06/18 09:59 Norvasc PO 2.5 mg QDAY MIRTHA Administration Desmopressin Acetate 0.1 mg 07/05/18 11:00 07/06/18 09:58 Ddavp PO 0.1 mg BID MIRTHA Administration Dextrose 50 ml 07/02/18 02:39 07/06/18 07:41 D50w (25gm) Syringe IV 50 ml PRN PRN Administration Hypoglycemia Gabapentin 100 mg 07/02/18 14:00 07/06/18 14:13 Neurontin PO 100 mg TID MIRTHA Administration Dextrose 1,000 mls @ 125 mls/hr 07/05/18 10:30 07/06/18 03:13 D5w IV 125 mls/hr DIRECT MIRTHA Administration Insulin Human Lispro 0 unit 07/02/18 16:30 07/06/18 11:56 Humalog SUB-Q 2 unit ACHS MIRTHA Administration Protocol Levothyroxine Sodium 75 mcg 07/05/18 06:00 07/06/18 06:28 Synthroid PO 75 mcg DAILY@0600 MIRTHA Administration Miscellaneous Medication 2 spray 07/03/18 14:00 07/06/18 09:58 Desmopressin 0.01% InNostril Not Given DAILY MIRTHA Ondansetron HCl 4 mg 07/02/18 02:39 Zofran IV Q8H PRN Nausea And Vomiting Paroxetine HCl 20 mg 07/03/18 10:00 04/23/19 09:57 Paxil PO 20 mg QDAY MIRTHA Administration Potassium Phos/Sodium Phos 1 each 07/04/18 14:00 07/06/18 14:13 Phos-Nak PO 1 each Q8HR MIRTHA Administration Pravastatin Sodium 80 mg 07/02/18 22:00 07/05/18 23:14 Pravachol PO 80 mg QHS MIRTHA Administration Sodium Chloride 10 ml 07/02/18 10:00 07/06/18 09:54 Sodium Chloride Flush Syringe 10 Ml IV 10 ml BID MIRTHA Administration Sodium Chloride 10 ml 07/02/18 02:39 Sodium Chloride Flush Syringe 10 Ml IV PRN PRN LINE FLUSH Warfarin Sodium 5 mg 07/06/18 17:00 Coumadin PO DAILY@1700 [facility] Nutrition/Malnutrition Assess - Dietary Evaluation Nutrition/Malnutrition Findings: Nutrition Notes Start: 07/02/18 13:21 Freq: Status: Active Protocol: Document 07/05/18 14:20 RM (Rec: 07/05/18 14:28 RM [email or web address]) Nutrition Notes Initial or Follow up Reassessment Current Diagnosis Acute Kidney Injury,Diabetes Other Pertinent Diagnosis CKD, Pneumonia, UTI, depression, leukocytes, hypothythroidism Current Diet Mechanical Soft, Consistent CHO, Cardiac Labs/Tests Reviewed Pertinent Medications Reviewed Height 5 ft 8 in Weight 92.986 kg [place] Body Weight (kg) 63.63 BMI 31.1 Subjective/Other Information Pt w/PT at time of visit. Recorded PO intake 100% X 1 meal. Burn Absent Trauma Absent #1 Nutrition Diagnosis Inadequate oral intake As Evidenced by Signs and Symptoms recorded PO intake 100% X 1 meal Diagnosis Progress(for reassessment Improved documentation) Is patient on ventilator? No Is Patient Ambulatory and/or Out of Bed No REE-([facility]-confined to bed) 1991.564 Kcal/Kg value to use for calculation 17 Approximate Energy Requirements Using 1581 kcal/Kg Calculation Used for Recommendations Kcal/kg Additional Notes Pro: (1-1.3g/kg) 93-121 g/day Fluid: 1mL/kcal or per MD request Nutrition Intervention Change Diet Order: Continue current Add Supplement/Snack (indicate name/kcal Was not previously added. /protein ) Goal #1 Meet at least 75% of calorie and protein needs via PO intakes Anticipated Discharge Needs: Mech Soft, Consistent CHO, Cardiac diet Follow-Up By: 07/07/18 Additional Comments Follow for PO intakes, Coumadin/Vit K diet education
[2018-07-06 15:09] LABS: BUN/Creatinine Ratio 15; Blood Urea Nitrogen 16 mg/dL (7-17); Calcium 7.9 mg/dL (8.4-10.2); Hemolysis Index 4
[2018-07-06 16:27] LABS: HIV-1 RNA QN PCR <1.30 Log cps/mL; HIV-1 RNA QN PCR <20 Copies/mL
[2018-07-06] MEDS ORDERED: COUMADIN PO SCH (17:00)
[2018-07-06] MEDS: PRAVACHOL PO SCH (21:56)
[2018-07-07] MEDS: D5W 1,000 ML IV SCH (05:22)
[2018-07-07] MEDS: PHOS-NAK PO SCH (05:23)
[2018-07-07] MEDS: SYNTHROID PO SCH (05:23)
[2018-07-07] MEDS: DUONEB *Not for PRN Use IH SCH ×3 (08:06→14:27)
--- NOTE | 2018-07-07 09:00 | Progress Note ---
Assessment and Plan Cultures: Blood cultures 07/01/2018 no growth . 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 no fever or leukocytosis. etiology unclear ?. UA not c/w UTI to explain the sepsis. CXR and Chest CT no consolidations. HIV neg. GAS neg. Rapid influenza negative. Blood cultures 07/01/2018 no growth. VQ scan low prob for PE. US GB not abnormalities. Doubt meningitis as her mentation has improved significantly and no headaches or persistent fever. - DILIP: Improved, Nephrology following - Elevated LFTs: Resolved - Hypernatremia Improving - Thrombocytopenia: worsening Recommendations: - continue to monitor off antibiotics -Clinically stable, ID is signing off [facility] M: [phone] O:[phone] Subjective Date of service: 07/07/18 Principal diagnosis: SIRS Interval history: Patient seen and examined. Sitting up in the bed, denies generalized pain or SOB. No fevers. Family at bedside. Objective - Exam Narrative Exam: General appearance: Alert in NAD, conversant Eyes: anicteric sclerae, moist conjunctivae; no lid-lag; PERRLA HENT: Atraumatic; oropharynx clear with moist mucous membranes and no mucosal ulcerations/no oral thrush; normal hard and soft palate. Normal external ears. Neck: Trachea midline; supple, no thyromegaly or lymphadenopathy Lungs: CTA CV: RRR Abdomen: Soft, non-tender; no masses or hepatosplenomegaly Extremities: + peripheral leg edema improved Skin: Normal temperature, turgor and texture; no rash, ulcers or subcutaneous nodules Psych: Appropriate affect, alert and oriented to person, place and time. Neuro: alert and oriented x 3. Moving all extermities - Constitutional Vitals: Vital Signs Temp Pulse Resp BP Pulse Ox 97.8 F 101 H 18 141/91 94 07/07/18 05:29 07/07/18 08:17 07/07/18 08:17 07/07/18 05:29 07/07/18 05:29 Temperature -Last 24 Hours Temperature 97.8 F Temperature 98.9 F Temperature 99.0 F Temperature 99.8 F - Labs CBC & Chem 7: 07/06/18 09:35 07/07/18 10:57 Labs: Abnormal lab results 07/06/18 07/06/18 07/06/18 Range/Units 09:35 09:35 11:28 MCH 26 L (28-32) pg RDW 15.7 H (13.2-15.2) % Plt Count 102 L (140-440) K/mm3 [place] % (Auto) 7.8 H (0.0-7.3) % Sodium (137-145) mmol/L Glucose (65-100) mg/dL POC Glucose 153 H (70-105) Calcium (8.4-10.2) mg/dL Albumin 2.9 L (3.9-5) g/dL 07/06/18 07/06/18 07/06/18 Range/Units 14:25 16:33 20:23 MCH (28-32) pg RDW (13.2-15.2) % Plt Count (140-440) K/mm3 [place] % (Auto) (0.0-7.3) % Sodium 146 H (137-145) mmol/L Glucose 163 H (65-100) mg/dL POC Glucose 136 H 195 H (70-105) Calcium 7.9 L (8.4-10.2) mg/dL Albumin (3.9-5) g/dL 07/07/18 Range/Units 07:25 MCH (28-32) pg RDW (13.2-15.2) % Plt Count (140-440) K/mm3 [place] % (Auto) (0.0-7.3) % Sodium (137-145) mmol/L Glucose (65-100) mg/dL POC Glucose 186 H (70-105) Calcium (8.4-10.2) mg/dL Albumin (3.9-5) g/dL
[2018-07-07] MEDS: HumaLOG SUB-Q SCH (09:40)
[2018-07-07] MEDS: PAXIL PO SCH (09:51)
[2018-07-07] MEDS: DDAVP PO SCH (09:51)
[2018-07-07] MEDS: NORVASC PO SCH (09:51)
[2018-07-07] MEDS: SODIUM CHLORIDE FLUSH SYRINGE 10 ML IV SCH (09:52)
[2018-07-07] MEDS: NEURONTIN PO SCH (09:52)
--- NOTE | 2018-07-07 10:17 | Discharge Summary ---
Providers - Providers Date of Admission: 07/02/18 02:39 Attending physician: AMY MURGUIA MD 07/02/18 11:50 Consult to Physician [CONS] Routine Comment: Consulting Provider: CANDE HARRINGTON Physician Instructions: Reason For Exam: fever, sirs 07/02/18 12:01 Consult to Dietitian/Nutrition [CONS] Routine Physician Instructions: Reason For Exam: Reason for Consult: Diet education 07/03/18 11:58 Consult to Physician [CONS] Routine Comment: Consulting Provider: SELMA DUVALL Physician Instructions: Reason For Exam: dilip vs ckd` 07/04/18 07:53 Physical Therapy Evaluation and Treat [CONS] Routine Comment: Reason For Exam: TO MAINTAIN, RESTORE, OR IMPROVE MOBILITY 07/04/18 10:50 Consult to Physician [CONS] Routine Comment: Consulting Provider: MARIMAR LINDER Physician Instructions: Reason For Exam: sob 07/04/18 11:01 Consult to Physician [CONS] Routine Comment: Consulting Provider: MARIMAR LINDER Physician Instructions: Reason For Exam: sob Primary care physician: [facility] Hospitalization Reason for admission: SIRS, hypopituitarism, electrolyte abnormalities Condition: Stable Hospital course: Patient is a 37-year-old female with past medical history of hypertension, CVA with RT sided weakness, brain tumor (germinosa) 13 years ago, DM type II, hypothyroidism, RLE DVT in 2014,pituitary insufficiency, depression, history of migraine headache presents to ER with complaints of cough, sore throat, dizziness 2 days. Dopplers show RLE chronic dvt patient is on Coumadin and INR is therapeutic SIRS, fever and tachycardia treated with antibiotics and resolved Productive Cough; resolved Hypertension continue home medications hypopituitary syndrome, history of brain cancer status post craniectomy and resection, causing chronic hypopituitarism type 2 DM with persistent hyperglycemia, patient is followed by sofa inspector and will follow after discharge chronic RLE edema from previous DVT in 2015, off coumadin x 6 months; currently started on Coumadin and INR is therapeutic DILIP on CKD, has had CKD stage 2-3 previously, vasomotor nephropathy; resolved currently hypernatremia, hypokalemia; corrected. Sinus tachycardia, resolved Hypoglycemia; resolved Patient is hemodynamically stable at the time of discharge. Patient is followed with PCP and sofa inspector as an outpatient. Disposition: TO HOME OR SELFCARE Time spent for discharge: 32 minutes - Discharge Diagnoses (1) DILIP (acute kidney injury) Status: Acute (2) Hypertension Status: Acute (3) Hypoglycemia Status: Acute (4) Acute hypernatremia Status: Acute (5) Deep venous thrombosis of right popliteal vein Status: Acute (6) Hypokalemia Status: Acute (7) Hypotension Status: Acute Qualifiers: Hypotension type: hypotension due to hypovolemia Qualified Code(s): I95.89 - Other hypotension; E86.1 - Hypovolemia Core Measure Documentation - Palliative Care Palliative Care/ Comfort Measures: Not Applicable - Core Measures Any of the following diagnoses?: none Exam - Physical Exam Narrative exam: Not in cardiopulmonary distress. The patient is obese. Vital signs as documented. Head exam is unremarkable. No scleral icterus . Neck is without jugular venous distension, thyromegaly, or carotid bruits. Lungs are clear to auscultation. Cardiac exam reveals regular rate and Rhythm. Abdominal exam reveals normal bowel sounds. Extremities are nonedematous. RESEARCH GEOLOGIST: Alert and oriented 3. No focal weakness. - Constitutional Vitals: Temp Pulse Resp BP Pulse Ox 97.8 F 101 H 18 141/91 94 07/07/18 05:29 07/07/18 08:17 07/07/18 08:17 07/07/18 05:29 07/07/18 05:29 Plan Activity: no restrictions Weight Bearing Status: Full Weight Bearing Diet: regular Follow up with: DELMI YANG MD [Primary Care Provider] - 7 Days Forms: Warfarin Discharge Instruction
[2018-07-07 11:15] LABS: BUN/Creatinine Ratio 14; Blood Urea Nitrogen 13 mg/dL (7-17); Calcium 8.1 mg/dL (8.4-10.2); Hemolysis Index 5; INR 1.8 (0.87-1.13)
[2018-07-07 12:46] VITALS: BP 110/71
--- NOTE | 2018-07-07 13:08 | Progress Note ---
Assessment and Plan Patient awake. Resting on room air. O2 saturation 95%. No acute respiratory distress. No complaint of chest pain, shortness of breath or cough. Patient running a low grade temperature. No leukocytosis. - Patient Problems (1) Sepsis Current Visit: Yes Status: Acute Qualifiers: Sepsis type: sepsis due to unspecified organism Qualified Code(s): A41.9 - Sepsis, unspecified organism Plan to address problem: Patient is on Cefepime and Vancomycin (2) UTI (urinary tract infection) Current Visit: Yes Status: Acute Qualifiers: Urinary tract infection type: acute cystitis Hematuria presence: without hematuria Qualified Code(s): N30.00 - Acute cystitis without hematuria Plan to address problem: Patient is on Cefepime and Vancomycin (3) Deep venous thrombosis of right popliteal vein Current Visit: No Status: Acute Plan to address problem: INR 2.18 (4) CVA (cerebral vascular accident) Current Visit: No Status: Chronic Plan to address problem: Management as per neurology Subjective Date of service: 07/07/18 Principal diagnosis: SIRS Interval history: Patient awake. Resting on room air. O2 saturation 95%. No acute respiratory distress. No complaint of chest pain, shortness of breath or cough. Patient running a low grade temperature. No leukocytosis. Objective Vital Signs - 12hr 07/07/18 07/07/18 07/07/18 05:29 08:09 08:17 Temperature 97.8 F Pulse Rate 89 Pulse Rate [ 94 H 101 H Bilateral Throughout] Respiratory 18 Rate Respiratory 16 18 Rate [Bilateral Throughout] Blood Pressure 141/91 O2 Sat by Pulse 94 Oximetry 07/07/18 11:49 Temperature 98.6 F Pulse Rate 99 H Pulse Rate [ Bilateral Throughout] Respiratory 16 Rate Respiratory Rate [Bilateral Throughout] Blood Pressure 110/71 O2 Sat by Pulse 94 Oximetry Constitutional: no acute distress, alert Eyes: non-icteric ENT: oropharynx moist Neck: supple, no lymphadenopathy Ascultation: Bilateral: rhonchi Cardiovascular: regular rate and rhythm Gastrointestinal: normoactive bowel sounds Integumentary: normal Extremities: no cyanosis, no edema Neurologic: pupils equal and round, CN II-XII normal, other (right hemiplesia) Psychiatric: mood appropriate, affect normal CBC and BMP: 07/06/18 09:35 07/07/18 10:57 ABG, PT/INR, D-dimer: PT/INR, D-dimer PT 22.1 Sec. (12.2-14.9) H 07/07/18 10:57 INR 1.80 (0.87-1.13) H 07/07/18 10:57 Abnormal lab findings: Abnormal Labs 07/01/18 07/01/18 07/01/18 20:16 20:16 20:26 WBC 14.8 H RBC 5.80 H Hgb 15.2 H Hct 47.2 H MCH 26 L RDW 15.3 H Plt Count Lymph % (Auto) [place] % (Auto) Seg Neutrophils % 80.3 H Seg Neutrophils # 11.9 H PT INR APTT 51.3 H Sodium Potassium Chloride BUN 22 H Creatinine 1.6 H Glucose 63 L POC Glucose Hemoglobin A1c Lactic Acid Calcium Phosphorus Magnesium AST 67 H Total Protein 9.1 H Albumin TSH Free T4 Urine WBC (Auto) 07/01/18 07/01/18 07/02/18 22:41 23:14 00:15 WBC RBC Hgb Hct MCH RDW Plt Count Lymph % (Auto) [place] % (Auto) Seg Neutrophils % Seg Neutrophils # PT INR APTT Sodium Potassium Chloride BUN Creatinine Glucose POC Glucose 57 L Hemoglobin A1c Lactic Acid 0.60 L Calcium Phosphorus Magnesium AST Total Protein Albumin TSH Free T4 Urine WBC (Auto) 10.0 H 07/02/18 07/02/18 07/02/18 05:31 11:16 13:19 WBC RBC Hgb Hct MCH RDW Plt Count Lymph % (Auto) [place] % (Auto) Seg Neutrophils % Seg Neutrophils # PT 16.5 H INR 1.25 H APTT Sodium Potassium Chloride BUN Creatinine Glucose POC Glucose 65 L 203 H Hemoglobin A1c Lactic Acid Calcium Phosphorus Magnesium AST Total Protein Albumin TSH Free T4 Urine WBC (Auto) 07/02/18 07/02/18 07/02/18 13:19 13:19 13:19 WBC RBC Hgb Hct MCH RDW Plt Count Lymph % (Auto) [place] % (Auto) Seg Neutrophils % Seg Neutrophils # PT INR APTT Sodium Potassium Chloride BUN Creatinine Glucose POC Glucose Hemoglobin A1c Lactic Acid Calcium Phosphorus Magnesium AST Total Protein Albumin TSH 0.013 L 0.013 L Free T4 1.52 H 1.51 H Urine WBC (Auto) 07/02/18 07/02/18 07/02/18 13:19 15:21 17:11 WBC RBC Hgb Hct MCH RDW Plt Count Lymph % (Auto) [place] % (Auto) Seg Neutrophils % Seg Neutrophils # PT INR APTT Sodium Potassium Chloride BUN Creatinine Glucose POC Glucose 336 H 351 H Hemoglobin A1c 7.8 H Lactic Acid Calcium Phosphorus Magnesium AST Total Protein Albumin TSH Free T4 Urine WBC (Auto) 07/02/18 07/03/18 07/03/18 21:05 07:50 07:50 WBC RBC Hgb Hct MCH RDW Plt Count Lymph % (Auto) [place] % (Auto) Seg Neutrophils % Seg Neutrophils # PT 22.7 H INR 1.86 H APTT Sodium Potassium Chloride 109.0 H BUN Creatinine 1.4 H Glucose 316 H POC Glucose 342 H Hemoglobin A1c Lactic Acid Calcium 8.3 L D Phosphorus Magnesium AST Total Protein Albumin TSH Free T4 Urine WBC (Auto) 07/03/18 07/03/18 07/04/18 14:05 17:43 00:21 WBC RBC Hgb Hct MCH RDW Plt Count Lymph % (Auto) [place] % (Auto) Seg Neutrophils % Seg Neutrophils # PT INR APTT Sodium Potassium Chloride BUN Creatinine Glucose POC Glucose 364 H 404 H 436 H Hemoglobin A1c Lactic Acid Calcium Phosphorus Magnesium AST Total Protein Albumin TSH Free T4 Urine WBC (Auto) 07/04/18 07/04/18 07/04/18 07:58 08:45 08:45 WBC RBC Hgb Hct MCH RDW Plt Count Lymph % (Auto) [place] % (Auto) Seg Neutrophils % Seg Neutrophils # PT 27.8 H INR 2.40 H APTT Sodium 151 H Potassium Chloride 115.9 H BUN 23 H Creatinine 1.3 H Glucose 361 H POC Glucose 340 H Hemoglobin A1c Lactic Acid Calcium Phosphorus 2.20 L Magnesium AST Total Protein Albumin TSH Free T4 Urine WBC (Auto) 07/04/18 07/04/18 07/04/18 12:08 16:36 21:30 WBC RBC Hgb Hct MCH RDW Plt Count Lymph % (Auto) [place] % (Auto) Seg Neutrophils % Seg Neutrophils # PT INR APTT Sodium Potassium Chloride BUN Creatinine Glucose POC Glucose 429 H 382 H 339 H Hemoglobin A1c Lactic Acid Calcium Phosphorus Magnesium AST Total Protein Albumin TSH Free T4 Urine WBC (Auto) 07/05/18 07/05/18 07/05/18 06:26 06:26 06:26 WBC 14.8 H RBC Hgb Hct MCH 26 L RDW 16.6 H Plt Count 117 L Lymph % (Auto) 12.0 L [place] % (Auto) Seg Neutrophils % 82.3 H Seg Neutrophils # 12.2 H PT 36.4 H INR 3.36 H APTT Sodium 158 H Potassium Chloride 123.7 H BUN 25 H Creatinine 1.5 H Glucose 64 L POC Glucose Hemoglobin A1c Lactic Acid Calcium Phosphorus Magnesium AST Total Protein Albumin TSH Free T4 Urine WBC (Auto) 07/05/18 07/05/18 07/05/18 08:06 08:48 11:37 WBC RBC Hgb Hct MCH RDW Plt Count Lymph % (Auto) [place] % (Auto) Seg Neutrophils % Seg Neutrophils # PT INR APTT Sodium Potassium Chloride BUN Creatinine Glucose POC Glucose 50 L 230 H 230 H Hemoglobin A1c Lactic Acid Calcium Phosphorus Magnesium AST Total Protein Albumin TSH Free T4 Urine WBC (Auto) 07/05/18 07/05/18 07/06/18 16:11 21:04 06:40 WBC RBC Hgb Hct MCH RDW Plt Count Lymph % (Auto) [place] % (Auto) Seg Neutrophils % Seg Neutrophils # PT 25.7 H INR 2.18 H APTT Sodium Potassium Chloride BUN Creatinine Glucose POC Glucose 264 H 203 H Hemoglobin A1c Lactic Acid Calcium Phosphorus Magnesium AST Total Protein Albumin TSH Free T4 Urine WBC (Auto) 07/06/18 07/06/18 07/06/18 06:40 09:35 09:35 WBC RBC Hgb Hct MCH 26 L RDW 15.7 H Plt Count 102 L Lymph % (Auto) [place] % (Auto) 7.8 H Seg Neutrophils % Seg Neutrophils # PT INR APTT Sodium 151 H Potassium 3.0 L D Chloride 108.7 H BUN Creatinine Glucose 39 L* POC Glucose Hemoglobin A1c Lactic Acid Calcium 8.3 L Phosphorus Magnesium AST Total Protein Albumin 2.9 L TSH Free T4 Urine WBC (Auto) 07/06/18 07/06/18 07/06/18 11:28 14:25 16:33 WBC RBC Hgb Hct MCH RDW Plt Count Lymph % (Auto) [place] % (Auto) Seg Neutrophils % Seg Neutrophils # PT INR APTT Sodium 146 H Potassium Chloride BUN Creatinine Glucose 163 H POC Glucose 153 H 136 H Hemoglobin A1c Lactic Acid Calcium 7.9 L Phosphorus Magnesium AST Total Protein Albumin TSH Free T4 Urine WBC (Auto) 07/06/18 07/07/18 07/07/18 20:23 07:25 10:57 WBC RBC Hgb Hct MCH RDW Plt Count Lymph % (Auto) [place] % (Auto) Seg Neutrophils % Seg Neutrophils # PT 22.1 H INR 1.80 H APTT Sodium Potassium Chloride BUN Creatinine Glucose POC Glucose 195 H 186 H Hemoglobin A1c Lactic Acid Calcium Phosphorus Magnesium AST Total Protein Albumin TSH Free T4 Urine WBC (Auto) 07/07/18 07/07/18 10:57 11:26 WBC RBC Hgb Hct MCH RDW Plt Count Lymph % (Auto) [place] % (Auto) Seg Neutrophils % Seg Neutrophils # PT INR APTT Sodium 134 L D Potassium 3.4 L Chloride 94.8 L BUN Creatinine Glucose 168 H POC Glucose 166 H Hemoglobin A1c Lactic Acid Calcium 8.1 L Phosphorus Magnesium 1.40 L AST Total Protein Albumin TSH Free T4 Urine WBC (Auto)
--- NOTE | 2018-07-07 14:51 | Progress Note ---
Assessment and Plan - Patient Problems (1) Acute hypernatremia Status: Acute Plan to address problem: Acute hypernatremia secondary to missed DDAVP:RESOLVED Has not received nasal sprays of desmopressin nonformulary ordered on admission continue desmopressin 0.1 mg by mouth twice a day which is available in the hospital, Patient should be return back desmopressin nasal spray on discharge Discontinue D5 water for now increase free water (2) DILIP (acute kidney injury) Status: Acute Plan to address problem: Acute kidney injury :improving 2/2 recent sepsis,hypotension Baseline creatinine 1.2 Current creatinine 1.2mg/dl from 1.5 mg/DL Stop lisinopril Intravenous fluids above (3) Hypertension Status: Acute Plan to address problem: Hypertension:uncontrolled Stop lisinopril given acute kidney injury We'll change to amlodipine 2.5 mg daily (4) Hypokalemia Status: Acute Plan to address problem: Mild Hypokalemia give 40meq KCL check magnesium levels Magnesium sulphate 2grams x 1. Subjective Principal diagnosis: SIRS Interval history: 37 -year-old lady with medical history significant for brain germinosa tumor , CVA, 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 nephrology consulted for acute kidney injury Patient seen today She is being scheduled for discharge Discontinue desmopressin oral forms patient can return to nasal sprays oF desmopressin on discharge Denies any was no shortness of breath denies any PND denies any lower extremity edema Sodium levels improved Objective - Vital Signs Vital signs: Vital Signs - 12hr 07/07/18 07/07/18 07/07/18 05:29 08:09 08:17 Temperature 97.8 F Pulse Rate 89 Pulse Rate [ 94 H 101 H Bilateral Throughout] Respiratory 18 Rate Respiratory 16 18 Rate [Bilateral Throughout] Blood Pressure 141/91 O2 Sat by Pulse 94 Oximetry 07/07/18 11:49 Temperature 98.6 F Pulse Rate 99 H Pulse Rate [ Bilateral Throughout] Respiratory 16 Rate Respiratory Rate [Bilateral Throughout] Blood Pressure 110/71 O2 Sat by Pulse 94 Oximetry - General Appearance General appearance: well-developed, well-nourished EENT: ATNC, PERRL, mucous membranes moist Neck: no JVD Respiratory: Present: Clear to Ascultation Cardiology: regular, S1S2 Gastrointestinal: normal, normoactive bowel sounds Integumentary: no rash Neurologic: alert and oriented x3, CN 3-12 intact Psychiatric: mood/affect appropriate - Lab 07/06/18 09:35 07/07/18 10:57 Most recent lab results Calcium 8.1 mg/dL (8.4-10.2) L 07/07/18 10:57 Phosphorus 4.00 mg/dL (2.5-4.5) 07/06/18 06:40 Magnesium 1.40 mg/dL (1.7-2.3) L 07/07/18 10:57 - Imaging Chest x-ray: image reviewed (Chest x-ray without any edema) Medications & Allergies - Medications Allergies/Adverse Reactions: Allergies No Known Allergies Allergy (Verified 05/07/16 09:44) Home Medications: Home Medications Medication Instructions Recorded Confirmed Last Taken Type Aspirin [Aspirin TAB] 325 mg PO DAILY 09/20/13 02/20/15 01/08/15 History DESMOPRESSIN 0.01%(nf) [Ddavp(Nf)] 2 spray INNOSTRIL DAILY 09/20/13 02/20/15 01/08/15 History Gabapentin 100 mg PO TID 09/20/13 02/20/15 01/08/15 History Glimepiride 1 mg PO DAILY 09/20/13 02/20/15 01/08/15 History Hydrocortisone 20 mg PO DAILY 09/20/13 02/20/15 01/08/15 History Levothyroxine [Synthroid] 112 mcg PO DAILY 09/20/13 02/20/15 01/08/15 History Simvastatin (Nf) [Zocor TAB] 40 mg PO QHS 09/20/13 02/20/15 01/07/15 History Warfarin [Coumadin] 10 mg PO DAILY@1700 14 Days tablet 12/04/14 02/20/15 01/08/15 Rx Amlodipine Besylate [Norvasc] 2.5 mg PO DAILY 30 Days tab 01/09/15 02/20/15 Unknown Rx HYDROcodone/APAP 10-325 [[place] 1 each PO Q8HR PRN #20 tablet 01/09/15 02/20/15 Unknown Rx 10-325 mg TAB] PARoxetine [Paxil] 10 mg PO TID #90 tablet 04/16/15 Unknown Rx traMADol [Ultram 50 MG tab] 50 mg PO Q4HR PRN #20 tablet 04/16/15 Unknown Rx HYDROcodone/APAP 5-325 [[place] 1 each PO Q6HR PRN #15 tablet 07/31/15 Unknown Rx 5-325 mg TAB] Ibuprofen [Motrin 800 MG tab] 800 mg PO Q8HR PRN #30 tablet 11/14/15 Unknown Rx Sulfamethoxazole/Trimethoprim 1 each PO BID #14 tablet 12/27/15 Unknown Rx [Bactrim DS TAB] Butalb/Acetamin/Caff 50-325-40 1 tab PO Q8HR PRN #20 tablet 05/07/16 Unknown Rx [Fioricet]
[2018-07-11 22:10] LABS: ANA Screen, IFA Negative (Negative)
== END 2018-07-07 14:34 | disposition home or self-care (01) | DRG 682 ==
LOC: ED 19:30 → 4A 07-02 02:39 → 3A 07-05 17:07
PROVIDERS: ADMIT Internal Medicine; ATTEND Internal Medicine
PROC: 05HN33Z Insertion of Infusion Device into Left Internal Jugular Vein, Percutaneous Approach (ICD-10-PCS; principal; 2018-07-02)
PROC: B544ZZA Ultrasonography of Left Jugular Veins, Guidance (ICD-10-PCS; 2018-07-02)
DX: N17.0 Acute kidney failure with tubular necrosis (principal); R65.11 Systemic inflammatory response syndrome (SIRS) of non-infectious origin with acute organ dysfunction; E87.0 Hyperosmolality and hypernatremia; I69.351 Hemiplegia and hemiparesis following cerebral infarction affecting right dominant side; N30.00 Acute cystitis without hematuria; I95.9 Hypotension, unspecified; E16.2 Hypoglycemia, unspecified; E87.6 Hypokalemia; E23.0 Hypopituitarism; I82.531 Chronic embolism and thrombosis of right popliteal vein; E11.65 Type 2 diabetes mellitus with hyperglycemia; I10 Essential (primary) hypertension; E03.9 Hypothyroidism, unspecified; F32.9 Major depressive disorder, single episode, unspecified; E83.39 Other disorders of phosphorus metabolism; G43.909 Migraine, unspecified, not intractable, without status migrainosus; N18.3 Chronic kidney disease, stage 3 (moderate); Z79.82 Long term (current) use of aspirin; Z79.899 Other long term (current) drug therapy; Z79.01 Long term (current) use of anticoagulants
CPT/HCPCS: 36415; 71045; 71250; 76705; 78582; 80048; 80053; 80076; 81001; 82140; 82533; 82962; 83036; 83735; 84100; 84436; 84439; 84443; 85014; 85018; 85025; 85610; 85730; 86038; 87040; 87086; 87116; 87400; 87430; 87536; 87806; 93005; 93010; 93306; 93970; 94640; 94760; 96365; 96375; G0378; A6250; A9270-GY; A9540; A9558; J0692; J1650; J1815; J1885; J1956; J2405; J2920; J3246; J3370; J7030; J7040; J7050; J7070; J7131

== ENCOUNTER 2019-02-05 17:08 | Emergency (ER) | payer MEDICARE ==
[2019-02-05 17:14] VITALS: BP 128/82
--- NOTE | 2019-02-05 17:36 | Event Note ---
ED Screening Note ED Screening Note: states that her urine is dark, odor pt is not sexually active no vaginal discharge no dysuria PMHx CVA no allergies to meds This initial assessment/diagnostic orders/clinical plan/treatment(s) is/are subject to change based on patients health status, clinical progression and re- assessment by fellow clinical providers in the ED. Further treatment and workup at subsequent clinical providers discretion. Patient/guardian urged not to elope from the ED as their condition may be serious if not clinically assessed and managed. Initial orders include: UA
[2019-02-05 18:10] LABS: Bilirubin,Urine NEG (Negative); Blood,Urine NEG (Negative); Color,Urine Yellow (Yellow); Protein,Urine <15 mg/dL mg/dL (Negative); Urobilinogen,Urine < 2.0 mg/dL (<2.0)
--- NOTE | 2019-02-05 19:17 | Emergency Department Report ---
ED General Adult HPI - General Chief complaint: Urogenital-Female Stated complaint: VAG PAIN URINE DISCOLORED Time Seen by Provider: 02/05/19 17:34 Source: patient, family Mode of arrival: Wheelchair Limitations: No Limitations - History of Present Illness Initial comments: 38-year-old -Turkmen female patient with history of diabetes, CVA, and DVT presents with complaints of pelvic pain and dysuria this morning. Patient's mother states she has a history of recurrent UTIs. Patient denies any sexual activity, vaginal discharge/lesions/rash, bleeding, or hematuria. Her mother states patient's urine is cloudy and has a strong odor. She also denies any fever/chills/sweats, diarrhea/constipation/hematochezia, or flank pain. -: Sudden Severity scale (0 -10): 5 Quality: aching Consistency: constant Worsens with: none Associated Symptoms: denies other symptoms Treatments Prior to Arrival: none - Related Data Home Medications Medication Instructions Recorded Confirmed Last Taken Aspirin 325 mg PO DAILY 09/20/13 02/20/15 01/08/15 DESMOPRESSIN 0.01%(nf) [Ddavp(Nf)] 2 spray INNOSTRIL DAILY 09/20/13 02/20/15 01/08/15 Gabapentin 100 mg PO TID 09/20/13 02/20/15 01/08/15 Glimepiride 1 mg PO DAILY 09/20/13 02/20/15 01/08/15 Hydrocortisone 20 mg PO DAILY 09/20/13 02/20/15 01/08/15 Levothyroxine [Synthroid] 112 mcg PO DAILY 09/20/13 02/20/15 01/08/15 Simvastatin (Nf) [Zocor TAB] 40 mg PO QHS 09/20/13 02/20/15 01/07/15 Previous Rx's Medication Instructions Recorded Last Taken Type Warfarin [Coumadin] 10 mg PO DAILY@1700 14 Days tablet 12/04/14 01/08/15 Rx Amlodipine Besylate [Norvasc] 2.5 mg PO DAILY 30 Days tab 01/09/15 Unknown Rx HYDROcodone/APAP 10-325 [[place] 1 each PO Q8HR PRN #20 tablet 01/09/15 Unknown Rx 10-325 mg TAB] PARoxetine [Paxil] 10 mg PO TID #90 tablet 04/16/15 Unknown Rx traMADoL [Ultram 50 MG tab] 50 mg PO Q4HR PRN #20 tablet 04/16/15 Unknown Rx HYDROcodone/APAP 5-325 [[place] 1 each PO Q6HR PRN #15 tablet 07/31/15 Unknown Rx 5-325 mg TAB] Ibuprofen [Motrin 800 MG tab] 800 mg PO Q8HR PRN #30 tablet 11/14/15 Unknown Rx Sulfamethoxazole/Trimethoprim 1 each PO BID #14 tablet 12/27/15 Unknown Rx [Bactrim DS TAB] Butalb/Acetamin/Caff 50-325-40 1 tab PO Q8HR PRN #20 tablet 05/07/16 Unknown Rx [Fioricet 50-325-40] Sulfamethoxazole/Trimethoprim 1 each PO BID 5 Days #10 tablet 02/05/19 Unknown Rx [Bactrim DS TAB] Allergies Allergy/AdvReac Type Severity Reaction Status Date / Time No Known Allergies Allergy Verified 05/07/16 09:44 ED Review of Systems ROS: Stated complaint: VAG PAIN URINE DISCOLORED Other details as noted in HPI Comment: All other systems reviewed and negative Gastrointestinal: as per HPI Genitourinary: dysuria, frequency. denies: hematuria, discharge ED Past Medical Hx - Past Medical History Hx Hypertension: Yes Hx CVA: Yes (CVA 2012) Hx Diabetes: Yes Hx Deep Vein Thrombosis: Yes (RIGHT LEG) Additional medical history: germinoma tumor, peripheral shunt, SCOLIOSIS, diabetes insipidus - Surgical History Additional Surgical History: brain surgery to remove germinoma. TONSILLECTOMY - Social History Smoking Status: Never Smoker Substance Use Type: Prescribed - Medications Home Medications: Home Medications Medication Instructions Recorded Confirmed Last Taken Type Aspirin 325 mg PO DAILY 09/20/13 02/20/15 01/08/15 History DESMOPRESSIN 0.01%(nf) [Ddavp(Nf)] 2 spray INNOSTRIL DAILY 09/20/13 02/20/15 01/08/15 History Gabapentin 100 mg PO TID 09/20/13 02/20/15 01/08/15 History Glimepiride 1 mg PO DAILY 09/20/13 02/20/15 01/08/15 History Hydrocortisone 20 mg PO DAILY 09/20/13 02/20/15 01/08/15 History Levothyroxine [Synthroid] 112 mcg PO DAILY 09/20/13 02/20/15 01/08/15 History Simvastatin (Nf) [Zocor TAB] 40 mg PO QHS 09/20/13 02/20/15 01/07/15 History Warfarin [Coumadin] 10 mg PO DAILY@1700 14 Days tablet 12/04/14 02/20/15 01/08/15 Rx Amlodipine Besylate [Norvasc] 2.5 mg PO DAILY 30 Days tab 01/09/15 02/20/15 Unknown Rx HYDROcodone/APAP 10-325 [[place] 1 each PO Q8HR PRN #20 tablet 01/09/15 02/20/15 Unknown Rx 10-325 mg TAB] PARoxetine [Paxil] 10 mg PO TID #90 tablet 04/16/15 Unknown Rx traMADoL [Ultram 50 MG tab] 50 mg PO Q4HR PRN #20 tablet 04/16/15 Unknown Rx HYDROcodone/APAP 5-325 [[place] 1 each PO Q6HR PRN #15 tablet 07/31/15 Unknown Rx 5-325 mg TAB] Ibuprofen [Motrin 800 MG tab] 800 mg PO Q8HR PRN #30 tablet 11/14/15 Unknown Rx Sulfamethoxazole/Trimethoprim 1 each PO BID #14 tablet 12/27/15 Unknown Rx [Bactrim DS TAB] Butalb/Acetamin/Caff 50-325-40 1 tab PO Q8HR PRN #20 tablet 05/07/16 Unknown Rx [Fioricet 50-325-40] Sulfamethoxazole/Trimethoprim 1 each PO BID 5 Days #10 tablet 02/05/19 Unknown Rx [Bactrim DS TAB] ED Physical Exam - General Limitations: No Limitations - Head Head exam: Present: atraumatic, normocephalic - Eye Eye exam: Present: normal appearance. Absent: scleral icterus - Respiratory Respiratory exam: Present: normal lung sounds bilaterally. Absent: respiratory distress - Cardiovascular Cardiovascular Exam: Present: regular rate, normal rhythm - GI/Abdominal GI/Abdominal exam: Present: soft, tenderness (mild suprapubic tenderness on palpation), normal bowel sounds. Absent: distended, guarding, rebound, rigid - Rectal Rectal exam: Present: deferred - External exam: Present: other (patient declines pelvic exam) - Neurological Exam Neurological exam: Present: alert, oriented X3, other (patient is wheelchair dependent) - Psychiatric Psychiatric exam: Present: normal affect, normal mood ED Course Vital Signs 02/05/19 17:12 Temperature 98.7 F Pulse Rate 91 H Respiratory 19 Rate Blood Pressure 128/82 O2 Sat by Pulse 95 Oximetry ED Medical Decision Making - Medical Decision Making Patient here for dysuria and pelvic pain x this morning. Her mother states history of recurrent UTIs, cloudy urine, and strong urinary odor. She continues to deny any sexual activity in declines pelvic exam for STI testing. She also denies any vaginal discharge, lesions, rash, or redness of the vaginal area. Patient seen for similar symptoms in June of this year-UA did not show an overt UTI, however patient states her symptoms did resolve when she was placed on Bactrim. UA today also does not show any overt infection, however will treat with Bactrim gain given pt's history of recurrent UTIs. Recommend PCP follow within 3-5 days. Return precautions were discussed in detail with patient and patient's mother who states understanding Critical care attestation.: If time is entered above; I have spent that time in minutes in the direct care of this critically ill patient, excluding procedure time. ED Disposition Clinical Impression: Dysuria Disposition: DC-01 TO HOME OR SELFCARE Is pt being admited?: No Condition: Stable Instructions: Dysuria (ED) Additional Instructions: Please follow-up with your primary care provider within 3-5 days. Return to the emergency department if there are any new or worsening symptoms. Prescriptions: Sulfamethoxazole/Trimethoprim [Bactrim DS TAB] 1 each PO BID 5 Days #10 tablet
== END 2019-02-05 19:35 | disposition home or self-care (01) ==
LOC: ED 17:08
DX: R10.2 Pelvic and perineal pain (principal); R30.0 Dysuria
CPT/HCPCS: 81001

== ENCOUNTER 2019-04-04 10:51 | Emergency (ER) | payer MEDICARE ==
[2019-04-04 10:57] VITALS: BP 126/77
--- NOTE | 2019-04-04 11:53 | XRay Report ---
RIGHT FOOT HISTORY: Injury with pain and bruising. COMPARISON: None. TECHNIQUE: 2 views of the right foot were obtained. FINDINGS: Bones: No fracture or dislocation. Moderate osteopenia. Joint spaces: Moderate osteoarthritis of the midfoot. Soft tissues: Soft tissue swelling and a hematoma of the dorsum of the forefoot. No foreign body or s oft tissue air. Additional findings: None. IMPRESSION: 1. Soft tissue injury. Signer Name: Bernard Weems MD Signed: 04/04/2019 11:48 AM Workstation Name: [id number]
--- NOTE | 2019-04-04 13:33 | Emergency Department Report ---
HPI - General Chief Complaint: Extremity Injury, Lower Time Seen by Provider: 04/04/19 13:20 - HPI HPI: 38-year-old -Finnish female presents to the emergency department with complaint of some pain to the top of the right foot since Thursday, 2 days ago, after she accidentally hit the foot on the refrigerator. There is some swelling and some bruising to this area as well. She has a past medical history of CVA with right-sided deficits, right leg DVT on Eliquis, , diabetes, hypertension and previous brain tumor. Patient has taken some Tylenol for her symptoms with some relief. They say that the swelling has gone down since the initial inci dent. ED Past Medical Hx - Past Medical History Previous Medical History?: Yes Hx Hypertension: Yes Hx CVA: Yes (CVA 2012) Hx Diabetes: Yes Hx Deep Vein Thrombosis: Yes (RIGHT LEG) Additional medical history: germinoma tumor, peripheral shunt, SCOLIOSIS, diabetes insipidus - Surgical History Past Surgical History?: Yes Additional Surgical History: brain surgery to remove germinoma. TONSILLECTOMY - Social History Smoking Status: Never Smoker Substance Use Type: None - Medications Home Medications: Home Medications Medication Instructions Recorded Confirmed Last Taken Type Aspirin 325 mg PO DAILY 09/20/13 02/20/15 01/08/15 History DESMOPRESSIN 0.01%(nf) [Ddavp(Nf)] 2 spray INNOSTRIL DAILY 09/20/13 02/20/15 01/08/15 History Gabapentin 100 mg PO TID 09/20/13 02/20/15 01/08/15 History Glimepiride 1 mg PO DAILY 09/20/13 02/20/15 01/08/15 History Hydrocortisone 20 mg PO DAILY 09/20/13 02/20/15 01/08/15 History Levothyroxine [Synthroid] 112 mcg PO DAILY 09/20/13 02/20/15 01/08/15 History Simvastatin (Nf) [Zocor TAB] 40 mg PO QHS 09/20/13 02/20/15 01/07/15 History Warfarin [Coumadin] 10 mg PO DAILY@1700 14 Days tablet 12/04/14 02/20/15 01/08/15 Rx Amlodipine Besylate [Norvasc] 2.5 mg PO DAILY 30 Days tab 01/09/15 02/20/15 Unknown Rx HYDROcodone/APAP 10-325 [[place] 1 each PO Q8HR PRN #20 tablet 01/09/15 02/20/15 Unknown Rx 10-325 mg TAB] PARoxetine [Paxil] 10 mg PO TID #90 tablet 04/16/15 Unknown Rx traMADoL [Ultram 50 MG tab] 50 mg PO Q4HR PRN #20 tablet 04/16/15 Unknown Rx HYDROcodone/APAP 5-325 [[place] 1 each PO Q6HR PRN #15 tablet 07/31/15 Unknown Rx 5-325 mg TAB] Ibuprofen [Motrin 800 MG tab] 800 mg PO Q8HR PRN #30 tablet 11/14/15 Unknown Rx Sulfamethoxazole/Trimethoprim 1 each PO BID #14 tablet 12/27/15 Unknown Rx [Bactrim DS TAB] Butalb/Acetamin/Caff 50-325-40 1 tab PO Q8HR PRN #20 tablet 05/07/16 Unknown Rx [Fioricet 50-325-40] Sulfamethoxazole/Trimethoprim 1 each PO BID 5 Days #10 tablet 02/05/19 Unknown Rx [Bactrim DS TAB] ED Review of Systems ROS: Stated complaint: RT FOOT SWOLLEN Other details as noted in HPI Comment: All other systems reviewed and negative Constitutional: denies: chills, fever Musculoskeletal: joint swelling, arthralgia, myalgia Skin: other (bruising right foot). denies: rash Neurological: denies: numbness, paresthesias Physical Exam - Physical Exam Vital Signs: Vital Signs 04/04/19 10:56 Temperature 98.7 F Pulse Rate 89 Respiratory 18 Rate Blood Pressure 126/77 O2 Sat by Pulse 100 Oximetry Physical Exam: GENERAL: The patient is well-developed well-nourished. HEENT: Normocephalic. Atraumatic. Patient has moist mucous membranes. EYES: Extraocular motions are intact. SKIN:Skin is warm and dry. There is some nonpitting swelling of the affected right foot. Mild ecchymosis to the dorsum of the right midfoot. NEURO: The patient is awake, alert, and oriented. The patient is cooperative. The patient has no focal neurologic deficits. Normal speech. MUSCULOSKELETAL: There is some tenderness to palpation to the dorsum of the right midfoot. A stool for dorsalis pedis pulse to the affected right foot. Capillary refill less than 2 seconds. ED Course Vital Signs 04/04/19 10:56 Temperature 98.7 F Pulse Rate 89 Respiratory 18 Rate Blood Pressure 126/77 O2 Sat by Pulse 100 Oximetry ED Medical Decision Making - Radiology Data Radiology results: image reviewed interpreted by me: X-ray of the right foot does not show any fracture, dislocation or any acute process. - Medical Decision Making This patient presents with pain to the top of her right foot since she hit it or got it caught on a refrigerator. There is some mild swelling and ecchymosis. X-ray does not show any fracture, dislocation or any acute process. She appears neurovascularly intact. She will follow up with podiatry and primary care. She will return to ER with any worsening of her symptoms or any acute distress. - Differential Diagnosis contusion, fracture, dislocation Critical Care Time: No Critical care attestation.: If time is entered above; I have spent that time in minutes in the direct care of this critically ill patient, excluding procedure time. ED Disposition Clinical Impression: Contusion of right foot Qualifiers: Encounter type: initial encounter Qualified Code(s): S90.31XA - Contusion of right foot, initial encounter Disposition: DC-01 TO HOME OR SELFCARE Is pt being admited?: No Condition: Stable Instructions: Foot Contusion (ED) Additional Instructions: Please follow up with your primary care physician and mechanical systems engineer in the next few days. Return to the emergency Department with any worsening of your symptoms or any acute distress. Referrals: Shipping Room Supervisor and PCP, Your [Other] - 2-3 Days Time of Disposition: 13:34
== END 2019-04-04 13:40 | disposition home or self-care (01) ==
LOC: ED 10:51
DX: S90.31XA Contusion of right foot, initial encounter (principal); I10 Essential (primary) hypertension; E23.2 Diabetes insipidus; Z86.73 Personal history of transient ischemic attack (TIA), and cerebral infarction without residual deficits; Z98.890 Other specified postprocedural states; Z90.49 Acquired absence of other specified parts of digestive tract; Z79.899 Other long term (current) drug therapy; W22.03XA Walked into furniture, initial encounter; Y93.89 Activity, other specified; Y92.89 Other specified places as the place of occurrence of the external cause; Y99.8 Other external cause status
CPT/HCPCS: 99283

== ENCOUNTER 2020-07-09 08:34 | Emergency (ER) | payer MEDICARE ==
--- NOTE | 2020-07-09 09:44 | Event Note ---
ED Screening Note Date of service: 07/09/20 Time: 09:37 ED Screening Note: Pt was brought to ED by mom with c/o GARCIA x 1 week. Mom reports pt has AIR CHIPPER shunt, this was placed when she was a child secondary to brain tumor which was nonmalignant. She also has a past medical history of CVA and diabetes and is on chronic daily steroids. This initial assessment/diagnostic orders/clinical plan/treatment(s) is/are subject to change based on patients health status, clinical progression and re-assessment by fellow clinical providers in the ED. Further treatment and workup at subsequent clinical providers discretion. Patient/guardian urged not to elope from the ED as their condition may be serious if not clinically assessed and managed. Initial orders include: CBC, CMP, head CT
--- NOTE | 2020-07-09 10:23 | Cat Scan Report ---
CT HEAD WITHOUT CONTRAST INDICATION / CLINICAL INFORMATION: Headache/HAND RIVETER shunt. TECHNIQUE: All CT scans at this location are performed using CT dose reduction for ALARA by means of automated e xposure control. COMPARISON: Head CT 07/31/2015 and 10/02/2014 FINDINGS: HEMORRHAGE: No evidence of intracranial hemorrhage or extra-axial fluid collection. EXTRA-AXIAL SPACES: Cortical sulci, sylvian fissures and basilar cisterns have an unremarkable appear ance. VENTRICULAR SYSTEM: Bilateral parietal ventriculostomy catheters are present. These enter the posteri or body of the lateral ventricles and terminate in the anterior interhemispheric fissures bilaterally . Ventriculostomy catheter position is stable. There is no evidence of ventricular catheter malfuncti on. Third and lateral ventricles are normal in size as is the fourth ventricle. CEREBRAL PARENCHYMA: Stents of calcification is seen in a bilateral gangliocapsular distribution as w ell as within the thalamic. More subtle calcification is seen involving insular cortex. Moderate calc ification of the cerebellar white matter is also observed bilaterally. These findings are all stable in comparison to previous study. Considerations include Fahr's disease, postradiation therapy change and endocrinopathy with disorder of calcium metabolism.. Correlation with clinical history is suggest ed. MIDLINE SHIFT OR HERNIATION: There is no mass effect. CEREBELLUM / BRAINSTEM: Brainstem has an unremarkable appearance. Cerebellar calcifications are noted as described above. In addition findings indicate moderate cerebellar atrophy. MIDLINE STRUCTURES:No abnormalities of the pituitary gland or pineal region are identified. INTRACRANIAL VESSELS:No abnormalities are identified on this noncontrast head CT. ORBITS: visualized portions of the orbits have an unremarkable appearance. SOFT TISSUES of HEAD: No significant abnormality. CALVARIUM: Evaluation of bone windows reveals no abnormalities. PARANASAL SINUSES / MASTOID AIR CELLS: Visualized portions of the paranasal sinuses are free from inf lammatory mucosal disease. Mastoid air cells are normally pneumatized. IMPRESSION: 1. No acute intracranial abnormality. No significant interval change. 2. Bilateral parietal ventricular catheter is unchanged in position. There is evidence of ventriculop eritoneal shunt catheter malfunction. 3. Extensive parenchymal calcifications as described in detail above. These are stable findings. Signer Name: Tian Evans MD Signed: 07/09/2020 10:19 AM Workstation Name: [id number]
[2020-07-09 10:42] LABS: Basophils # (Auto) 0.1 K/mm3 (0.0-0.1); Basophils % (Auto) 1.2 % (0.0-1.8); Eosinophils # (Auto) 0.2 K/mm3 (0.0-0.4); Eosinophils % (Auto) 1.6 % (0.0-4.3); Hematocrit 42.1 % (30.3-42.9); Hemoglobin 13.5 gm/dl (10.1-14.3); Lymphocytes # (Auto) 2.2 K/mm3 (1.2-5.4); Lymphocytes % (Auto) 19.6 % (13.4-35.0); Mean Corpuscular HGB Conc 32 % (30-34); Mean Corpuscular Volume 83 fl (79-97); Monocytes # (Auto) 0.6 K/mm3 (0.0-0.8); Monocytes % (Auto) 5.8 % (0.0-7.3); Platelet Count 171 K/mm3 (140-440); Red Blood Count 5.07 M/mm3 (3.65-5.03); Red Cell Distribution Width 15.5 % (13.2-15.2)
[2020-07-09] MEDS ORDERED: METOCLOPRAMIDE 10 MG/2 ML INJ IV ONE (10:58)
[2020-07-09] MEDS ORDERED: diphenhydrAMINE 50 MG/ML VIAL IV ONE (10:58)
[2020-07-09] MEDS ORDERED: BUTALB/ACETAMINOPHEN/CAFFEINE TAB PO ONE (10:58)
[2020-07-09 11:03] LABS: Alanine Aminotransferase 28 units/L (7-56); Albumin 3.8 g/dL (3.9-5); BUN/Creatinine Ratio 19; Blood Urea Nitrogen 23 mg/dL (7-17); Calcium 8.9 mg/dL (8.4-10.2); Hemolysis Index 28
[2020-07-09] MEDS ORDERED: SUMAtriptan SUCCINATE 25 MG TAB PO NR (11:30)
--- NOTE | 2020-07-09 12:22 | XRay Report ---
SKULL 2 VIEWS CHEST 1 VIEW ABDOMEN 1 VIEW INDICATION: Ventriculoperitoneal shunt evaluation. COMPARISON: None. FINDINGS: SKULL: A biventricular shunt terminates anteriorly near midline. No discontinuity. The calvarium is u nremarkable. CHEST: Shunt tubing descends the right side of the chest and appears intact. The lungs are clear. Unr emarkable heart and mediastinal structures. ABDOMEN: Shunt tubing descends the abdomen with its distal portion coiled in the pelvis. There appear s to be a kink or possibly discontinuity in the shunt at the level of the right 12th rib. Please alirio elate with the image. The bowel gas pattern is unremarkable. IMPRESSION: Questionable kink or discontinuity of the shunt tubing in the abdomen as described. Please correlate with the images. Signer Name: William Estrada Jr, MD Signed: 07/09/2020 12:17 PM Workstation Name: [id number]
--- NOTE | 2020-07-09 13:16 | Emergency Department Report ---
ED General Adult HPI - General Chief complaint: Headache Stated complaint: HEADACHE/SHUNT IN HEAD Time Seen by Provider: 07/09/20 10:42 Source: patient Mode of arrival: Wheelchair Limitations: Physical Limitation - History of Present Illness Initial comments: Patient complains of intermittent headache that has been present for the last 2 and half weeks. Patient states the headache has been constant for the last week. Headache is diffuse in nature and throbbing in nature. Patient denies any nausea, vomiting, or abdominal pain. Patient has a history of a shunt series that was placed when she was 9 years old. Patient follows up with neurosurgery at [facility]. Per the patient and her mother they tried to contact neurosurgery prior to come to the ED without return phone calls. Mom states that the patient used to take Imitrex which was prescribed by the neurosurgeon but they no longer have any at home. -: Sudden, week(s) (2) Location: head Severity scale (0 -10): 8 Quality: other (throbbing) Consistency: constant Improves with: none Worsens with: none Associated Symptoms: denies other symptoms Treatments Prior to Arrival: none - Related Data Home Medications Medication Instructions Recorded Confirmed Last Taken Aspirin 325 mg PO DAILY 09/20/13 02/20/15 01/08/15 DESMOPRESSIN 0.01%(nf) [Ddavp(Nf)] 2 spray INNOSTRIL DAILY 09/20/13 02/20/15 01/08/15 Gabapentin 100 mg PO TID 09/20/13 02/20/15 01/08/15 Glimepiride 1 mg PO DAILY 09/20/13 02/20/15 01/08/15 Hydrocortisone 20 mg PO DAILY 09/20/13 02/20/15 01/08/15 Levothyroxine [Synthroid] 112 mcg PO DAILY 09/20/13 02/20/15 01/08/15 Simvastatin (Nf) [Zocor TAB] 40 mg PO QHS 09/20/13 02/20/15 01/07/15 Previous Rx's Medication Instructions Recorded Last Taken Type Warfarin [Coumadin] 10 mg PO DAILY@1700 14 Days tablet 12/04/14 01/08/15 Rx Amlodipine Besylate [Norvasc] 2.5 mg PO DAILY 30 Days tab 01/09/15 Unknown Rx HYDROcodone/APAP 10-325 [[place] 1 each PO Q8HR PRN #20 tablet 01/09/15 Unknown Rx 10-325 mg TAB] PARoxetine [Paxil] 10 mg PO TID #90 tablet 04/16/15 Unknown Rx traMADoL [Ultram 50 MG tab] 50 mg PO Q4HR PRN #20 tablet 04/16/15 Unknown Rx HYDROcodone/APAP 5-325 [[place] 1 each PO Q6HR PRN #15 tablet 07/31/15 Unknown Rx 5-325 mg TAB] Ibuprofen [Motrin 800 MG tab] 800 mg PO Q8HR PRN #30 tablet 11/14/15 Unknown Rx Sulfamethoxazole/Trimethoprim 1 each PO BID #14 tablet 12/27/15 Unknown Rx [Bactrim DS TAB] Butalb/Acetamin/Caff 50-325-40 1 tab PO Q8HR PRN #20 tablet 05/07/16 Unknown Rx [Fioricet 50-325-40] Sulfamethoxazole/Trimethoprim 1 each PO BID 5 Days #10 tablet 02/05/19 Unknown Rx [Bactrim DS TAB] Butalb/Acetamin/Caff 50-325-40 1 tab PO Q6HR PRN #24 tab 07/09/20 Unknown Rx [Fioricet] Allergies Allergy/AdvReac Type Severity Reaction Status Date / Time No Known Allergies Allergy Verified 05/07/16 09:44 ED Review of Systems ROS: Stated complaint: HEADACHE/SHUNT IN HEAD Other details as noted in HPI Constitutional: denies: chills, fever Eyes: denies: eye pain, eye discharge, vision change ENT: denies: ear pain, throat pain Respiratory: denies: cough, shortness of breath, wheezing Cardiovascular: denies: chest pain, palpitations Endocrine: no symptoms reported Gastrointestinal: denies: abdominal pain, nausea, diarrhea Genitourinary: denies: urgency, dysuria, discharge Musculoskeletal: denies: back pain, joint swelling, arthralgia Skin: denies: rash, lesions Neurological: headache. 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 TONSILLECTOMY - Social History Smoking Status: Never Smoker - Medications Home Medications: Home Medications Medication Instructions Recorded Confirmed Last Taken Type Aspirin 325 mg PO DAILY 09/20/13 02/20/15 01/08/15 History DESMOPRESSIN 0.01%(nf) [Ddavp(Nf)] 2 spray INNOSTRIL DAILY 09/20/13 02/20/15 01/08/15 History Gabapentin 100 mg PO TID 09/20/13 02/20/15 01/08/15 History Glimepiride 1 mg PO DAILY 09/20/13 02/20/15 01/08/15 History Hydrocortisone 20 mg PO DAILY 09/20/13 02/20/15 01/08/15 History Levothyroxine [Synthroid] 112 mcg PO DAILY 09/20/13 02/20/15 01/08/15 History Simvastatin (Nf) [Zocor TAB] 40 mg PO QHS 09/20/13 02/20/15 01/07/15 History Warfarin [Coumadin] 10 mg PO DAILY@1700 14 Days tablet 12/04/14 02/20/15 01/08/15 Rx Amlodipine Besylate [Norvasc] 2.5 mg PO DAILY 30 Days tab 01/09/15 02/20/15 Unknown Rx HYDROcodone/APAP 10-325 [[place] 1 each PO Q8HR PRN #20 tablet 01/09/15 02/20/15 Unknown Rx 10-325 mg TAB] PARoxetine [Paxil] 10 mg PO TID #90 tablet 04/16/15 Unknown Rx traMADoL [Ultram 50 MG tab] 50 mg PO Q4HR PRN #20 tablet 04/16/15 Unknown Rx HYDROcodone/APAP 5-325 [[place] 1 each PO Q6HR PRN #15 tablet 07/31/15 Unknown Rx 5-325 mg TAB] Ibuprofen [Motrin 800 MG tab] 800 mg PO Q8HR PRN #30 tablet 11/14/15 Unknown Rx Sulfamethoxazole/Trimethoprim 1 each PO BID #14 tablet 12/27/15 Unknown Rx [Bactrim DS TAB] Butalb/Acetamin/Caff 50-325-40 1 tab PO Q8HR PRN #20 tablet 05/07/16 Unknown Rx [Fioricet 50-325-40] Sulfamethoxazole/Trimethoprim 1 each PO BID 5 Days #10 tablet 02/05/19 Unknown Rx [Bactrim DS TAB] Butalb/Acetamin/Caff 50-325-40 1 tab PO Q6HR PRN #24 tab 07/09/20 Unknown Rx [Fioricet] ED Physical Exam - General Limitations: Physical Limitation General appearance: alert, in no apparent distress - Head Head exam: Present: atraumatic, normocephalic, other (Headache) - Eye Eye exam: Present: normal appearance - ENT ENT exam: Present: mucous membranes moist - Neck Neck exam: Present: normal inspection - Respiratory Respiratory exam: Present: normal lung sounds bilaterally. Absent: respiratory distress - Cardiovascular Cardiovascular Exam: Present: regular rate, normal rhythm. Absent: systolic murmur, diastolic murmur, rubs, gallop - GI/Abdominal GI/Abdominal exam: Present: soft, normal bowel sounds - Extremities Exam Extremities exam: Present: normal inspection - Back Exam Back exam: Present: normal inspection - Neurological Exam Neurological exam: Present: alert, oriented X3 - Psychiatric Psychiatric exam: Present: normal affect, normal mood - Skin Skin exam: Present: warm, dry, intact, normal color. Absent: rash ED Course Vital Signs 07/09/20 07/09/20 08:40 10:35 Temperature 98.6 F Pulse Rate 92 H 79 Respiratory 20 13 Rate Blood Pressure 129/83 O2 Sat by Pulse 98 100 Oximetry ED Medical Decision Making - Lab Data Result diagrams: 07/09/20 10:05 07/09/20 10:05 - Medical Decision Making Medications given for headache with improvement CT of the head reviewed as well as shunt series The point where states there is a discontinuation of the shunt or kink appears to be discontinuation of the shunt especially with the patient being asymptomatic Critical care attestation.: If time is entered above; I have spent that time in minutes in the direct care of this critically ill patient, excluding procedure time. ED Disposition Clinical Impression: Headache Disposition: DC-01 TO HOME OR SELFCARE Is pt being admited?: No Does the pt Need Aspirin: No Condition: Stable Instructions: General Headache Without Cause Additional Instructions: return if worse Prescriptions: Butalb/Acetamin/Caff 50-325-40 [Fioricet] 1 tab PO Q6HR PRN #24 tab PRN Reason: Headache Referrals: JEAN CARLOS GUTIERREZ [Other] - 3-5 Days Time of Disposition: 13:15
[2020-07-09 14:24] VITALS: BP 131/76
== END 2020-07-09 14:24 | disposition home or self-care (01) ==
LOC: ED 08:34
DX: R51.9 Headache, unspecified (principal); I10 Essential (primary) hypertension; E11.9 Type 2 diabetes mellitus without complications; Z90.89 Acquired absence of other organs; Z86.73 Personal history of transient ischemic attack (TIA), and cerebral infarction without residual deficits; Z98.890 Other specified postprocedural states; Z79.1 Long term (current) use of non-steroidal anti-inflammatories (NSAID); Z79.899 Other long term (current) drug therapy
CPT/HCPCS: 36415; 70250; 70450; 71045; 74018; 80053; 85025; 96374; 96375; 99284; J1200; J2765

== ENCOUNTER 2021-09-22 11:40 | Emergency (ER) | payer MEDICARE ==
[2021-09-22 12:02] VITALS: BP 119/74
== END 2021-09-22 21:45 | disposition left against medical advice (07) ==
LOC: ED 11:40
DX: Z04.1 Encounter for examination and observation following transport accident (principal); Z53.21 Procedure and treatment not carried out due to patient leaving prior to being seen by health care provider; V89.2XXA Person injured in unspecified motor-vehicle accident, traffic, initial encounter; Y93.89 Activity, other specified; Y92.89 Other specified places as the place of occurrence of the external cause; Y99.8 Other external cause status